=== PATIENT | female | born 1930 | race Caucasian/White ===

== ENCOUNTER 2018-09-27 10:05 | Inpatient (IN) | payer MEDICARE, MEDICAID ==
[2018-09-27] MEDS ORDERED: Sodium Chloride 0.9% 1,000 ML IV ONE (10:22)
--- NOTE | 2018-09-27 10:52 | ED Physician Chart ---
ED Chief Complaint/HPI - Patient Information Date Seen:: 09/27/18 Time Seen:: 10:46 Chief Complaint:: low blood pressure History of Present Illness:: this is an 87 yo female sent [facility] the [facility] for evaluation and treatment for her low blood pressure with dementia. Allergies:: Allergies Allergy/AdvReac Type Severity Reaction Status Date / Time No Known Allergies Allergy Verified 09/27/18 10:21 Vitals:: Vital Signs - 8 hr 09/27/18 10:23 Temp 97.4 F HR 93 RR 18 BP 104/65 O2 Sat % 98 Historian:: Medical Records Review:: Nurse's Note Reviewed, Old Chart Reviewed, Patient unable to respond ED Review of Systems - Review of Systems General/Constitutional: No fever, No chills, No weight loss, No weakness, No diaphoresis, No edema, No loss of appetite, Other (this patient is unable to give a review of systems) Skin: No skin lesions, No rash, No bruising Head: No headache, No light-headedness Eyes: No loss of vision, No pain, No diplopia ENT: No earache, No nasal drainage, No sore throat, No tinnitus Neck: No neck pain, No swelling, No thyromegaly, No stiffness, No mass noted Cardio Vascular: No chest pain, No palpitations, No PND, No orthopnea, No edema Pulmonary: No SOB, No cough, No sputum, No wheezing GI: No nausea, No vomiting, No diarrhea, No pain, No melena, No hematochezia, No constipation, No hematemesis G/U: No dysuria, No frequency, No hematuria Musculoskeletal: No bone or joint pain, No back pain, No muscle pain Endocrine: No polyuria, No polydipsia Psychiatric: No prior psych history, No depression, No anxiety, No suicidal ideation Hematopoietic: No bruising, No lymphadenopathy Allergic/Immuno: No urticaria, No angioedema Neurological: No syncope, No focal symptoms, No weakness, No paresthesia, No headache, No seizure, No dizziness, No confusion, No vertigo ED Past Medical History - Past Medical History Obtainable: Yes Past Medical History: HTN, Dementia Family History: None Social History: Non Smoker, No Alcohol, No Drug Use, Care Facility Surgical History: None Psychiatricy History: Dementia Medication: Reviewed Family Medical History - Family Member Mother History Unknown: Yes Living Status: ED Physical Exam - Physical Examination General/Constitutional: Awake, Well-developed, well-nourished, Alert, No distress, GCS 15, Non-toxic appearing, Ambulatory Head: Atraumatic Eyes: Lids, conjuctiva normal, PERRL, EOMI Skin: Nl inspection, No rash, No skin lesions, No ecchymosis, Well hydrated, No lymphadenopathy ENMT: External ears, nose nl, Nasal exam nl, Lips, teeth, gums nl Neck: Nontender, Full ROM w/o pain, No JVD, No nuchal rigidity, No bruit, No mass, No stridor Respiratory: Nl effort/Exclusion, Clear to Auscultation, No Wheeze/Rhonchi/Rales Cardio Vascular: RRR, No murmur, gallop, rubs, NL S1 S2 GI: No tenderness/rebounding/guarding, No organomegaly, No hernia, Normal BS's, Nondistended, No mass/bruits, No McBurney tenderness : No CVA tenderness Extremities: No tenderness or effusion, Full ROM, normal strength in all extremities, No edema, Normal digits & nails Neuro/Psych: Alert/oriented, DTR's symmetric, Normal sensory exam, Normal motor strength, Judgement/insight normal (this patient is unable to think), Mood normal, Normal gait, No focal deficits Misc: Normal back, No paraspinal tenderness ED Labs/Radiology/EKG Results - Lab Results Results: Abnormal Lab Results 09/27/18 09/27/18 09/27/18 10:50 10:50 10:50 Sodium Potassium Chloride Carbon Dioxide Anion Gap BUN Creatinine Est GFR ( Amer) Est GFR (Non-Af Amer) BUN/Creatinine Ratio Glucose Calcium Total Bilirubin AST ALT Alkaline Phosphatase Troponin I 0.07 H* B-Natriuretic Peptide Total Protein Albumin Globulin Albumin/Globulin Ratio Triglycerides 147 Cholesterol 223 H LDL Cholesterol Direct 113 HDL Cholesterol 80 TSH 0.69 09/27/18 09/27/18 10:50 10:50 Sodium 162 H* Potassium 4.5 Chloride 122 H Carbon Dioxide 28.0 Anion Gap 16.5 H BUN 53 H Creatinine 1.3 H Est GFR ( Amer) TNP Est GFR (Non-Af Amer) TNP BUN/Creatinine Ratio 40.8 Glucose 125 H Calcium 14.1 H* Total Bilirubin 0.3 AST 20 ALT 21 Alkaline Phosphatase 89 Troponin I B-Natriuretic Peptide 14.5 Total Protein 7.7 Albumin 3.9 Globulin 3.8 Albumin/Globulin Ratio 1.0 Triglycerides Cholesterol LDL Cholesterol Direct HDL Cholesterol TSH - Radiology Results Results: chest x-ray = nad - EKG Interpretations EKG Time:: 10:53 Rate & Rhythm: rate = sinus [place]: left axis ED Assessment - Assessment General Assessment: esrd elevated troponin ED Septic Shock - . Is Septic Shock (SBP<90, OR Lactate>4 mmol\L) present?: No - <6hrs of presentation: Vital Signs: Vital Signs - 8 hr 09/27/18 10:23 Temp 97.4 F HR 93 RR 18 BP 104/65 O2 Sat % 98 ED Reassessment (Disposition) - Reassessment Reassessment Condition:: Improved - Diagnosis Diagnosis:: esrd elevated troponin dementia - Patient Disposition Discharge/Transfer:: Acute Care w/in this hosp Admitting Medical Physician:: Julianna Farrar Condition at Disposition:: Improved
[2018-09-27 11:04] LABS: EOSINOPHILE ABSOLUTE 0.1 Th/cmm (0.1-0.4); HEMATOCRIT 46.9 % (41.0-60); HEMOGLOBIN 15.4 gm/dL (12-16); MEAN CELL VOLUME 89.8 fl (81-100); MEAN CORPUSCULAR HEMOGLOBIN 29.4 pg (27.0-31.0); MEAN CORPUSCULAR HGB CONC 32.8 pg (28.0-36.0); MONOCYTE ABSOLUTE 1.1 Th/cmm (0.3-1.0); NEUTROPHILE ABSOLUTE 20.9 Th/cmm (1.8-8.0); PLATELET COUNT 227 Th/cmm (150-400); RED BLOOD COUNT 5.22 Mil/cmm (3.80-5.20); RED CELL DISTRIBUTION WIDTH 14.1 % (11.5-20.0)
[2018-09-27 11:12] LABS: INR 0.94 (0.5-1.4)
[2018-09-27 11:19] LABS: CHOLESTEROL 223 mg/dL (<200); HDL -HIGH DENSITY LIPOPROTEIN 80 mg/dL (23-92); TRIGLYCERIDES 147 mg/dL (<150)
[2018-09-27 11:53] LABS: ALBUMIN 3.9 gm/dL (3.7-5.3); ALKALINE PHOSPHATASE 89 U/L (34-104); ANION GAP 16.5 (7.0-16.0); BILIRUBIN,TOTAL 0.3 mg/dL (0.3-1.0); BUN - UREA NITROGEN 53 mg/dL (7-25); CHLORIDE 122 mEq/L (98-107); CREATININE - SERUM 1.3 mg/dL (0.6-1.2); GLUCOSE 125 mg/dL (70-105); POTASSIUM SERUM 4.5 mEq/L (3.5-5.1); SGOT 20 U/L (13-39); SGPT/ALT 21 U/L (7-52); TOTAL PROTEIN,SERUM 7.7 gm/dL (6.0-8.3)
[2018-09-27 12:03] LABS: URINE SOURCE CLEAN C
[2018-09-27 12:10] LABS: URINE BILIRUBIN NEGATIVE (NEGATIVE); URINE BLOOD TRACE (NEGATIVE); URINE GLUCOSE (UA) NEGATIVE (NEGATIVE); URINE KETONE NEGATIVE (NEGATIVE); URINE LEUKOCYTE ESTERASE NEGATIVE (NEGATIVE); URINE MICROSCOPIC INDICATED? YES; URINE NITRATE NEGATIVE (NEGATIVE); URINE PH 7.5 (4.6 - 8.0); URINE PROTEIN NEGATIVE (NEGATIVE); URINE UROBILINOGEN 0.2 E.U./dL (0.2 - 1.0)
[2018-09-27 12:37] LABS: CALCIUM SERUM 14.1 mg/dL (8.6-10.3); SODIUM SERUM 162 mEq/L (136-145)
[2018-09-27] MEDS ORDERED: Dextrose 5% 1,000 ML IV ONE (12:42)
[2018-09-27 12:59] LABS: URINE CLARITY HAZY (CLEAR); URINE COLOR YELLOW
[2018-09-27 13:03] LABS: WHITE BLOOD COUNT 24.1 Th/cmm (4.8-10.8)
[2018-09-27 13:06] LABS: URINE EPITHELIAL CELLS NONE SEEN /lpf (FEW); URINE WBC 0-2 /hpf (0-5)
[2018-09-27 13:07] LABS: URINE AMORPHOUS SEDIMENT MODERATE PHOSPHATES (NONE SEEN); URINE BACTERIA FEW /hpf (NONE SEEN)
[2018-09-27 14:15] LABS: BAND NEUTROPHILE 0 % (0-10); BASOPHIL 0 % (0-3); EOSINOPHIL 0 % (0-5); LYMPHOCYTE 10 % (20-50); MONOCYTE 5 % (2-10); NEUTROPHILS 84 % (40-80); PLATELET ESTIMATE ADEQUATE (NORMAL)
[2018-09-27] MEDS ORDERED: Magnesium Hydroxide (MOM) 30 mL UDC PO PRN (15:37)
[2018-09-27] MEDS ORDERED: Fleet Enema 135 mL RC PRN (15:37)
[2018-09-27] MEDS: D5-0.45NS 1,000 ML IV SCH (17:46)
[2018-09-27] MEDS ORDERED: Piperacillin Sodium/Tazobact 2.25 gm Vial IV ONE (20:54)
[2018-09-27] MEDS ORDERED: Non-Formulary Item 1 EA (Melatonin [Melatonin] 3 MG) PO SCH (21:00)
[2018-09-27] MEDS ORDERED: Atorvastatin Calcium 10 MG TAB PO SCH (21:00)
[2018-09-28] MEDS ORDERED: Piperacillin Sodium/Tazobact 2.25 gm Vial IV ONE (03:59)
--- NOTE | 2018-09-28 04:33 | Consultation ---
DATE OF CONSULTATION: 09/27/2018 HISTORY OF PRESENT ILLNESS: This 87-year-old female was seen and examined at the courtesy of Dr. Farrar. The patient was transferred here from a snf with a low blood pressure and dementia. She was evaluated here and then admitted. She was found to have blood pressure on the low side, leukocytosis. WBC count was 24,000. She was also found to have slightly elevated troponin level. All the 3 troponins were slightly elevated. She does have history of actually hypertension, hypothyroidism, hyperlipidemia, chronic kidney disease, dementia. She was also found to have hypernatremia and hypercalcemia. LABORATORY DATA: Looking at the labs; sodium was 162, potassium 4.5, chloride 122, carbon dioxide 28, BUN 53, creatinine 1.3, glucose was 125, lactic acid was 1.11. Calcium 14.1, elevated. Total bilirubin 0.3, AST 20, ALT 21, alkaline phosphatase 89. Troponin was 0.07 and then troponin was 0.09 and then it came down again to 0.07, total protein 7.7, albumin 3.9, globulin 3.8, albumin-globulin ratio 1.0. Triglycerides 147, cholesterol 223. LDL cholesterol 113, HDL cholesterol 80. TSH was 0.69. Urinalysis was unremarkable, did not show any significant rbc's or wbc's, bacteria were a few. INR was 0.94, PTT 18.1. EKG showed sinus rhythm, left axis, possible old inferior myocardial infarction. MEDICATIONS: On reviewing the medications here, she is on cholecalciferol. She is on Sensipar, folic acid, Lasix, Namenda. She is on IV fluids at 75 mL an hour. She is also on Zosyn. She is on Rocephin. She is on vancomycin, multivitamin, potassium chloride, Lipitor, Aricept, Dulcolax tablets. PAST MEDICAL HISTORY: Usual childhood diseases. No history of rheumatic fever. No history of scarlet fever. Other past history as mentioned above. FAMILY HISTORY: Not available to me. SOCIAL HISTORY: Apparently, there was no history of smoking or drinking. No history of drug abuse. REVIEW OF SYSTEMS: Not much reliable available, but apparently there was no chest pains or shortness of breath. No history of PND, no history of orthopnea, no history of cough, no history of fever, no history of hemoptysis, no history of abdominal pain. No history of nausea or vomiting. No history of hematemesis. No history of melena, no history of bleeding per rectum. No history of change in bowel habits. No history of swelling over the legs. No history of intermittent claudications or phlebitis. PHYSICAL EXAMINATION: VITAL SIGNS: Heart rate is 78, blood pressure 106/59, respiration 18, temperature 97.1, O2 saturation 95%. SKIN: Normal. HEAD: Normocephalic. EYES: Conjunctivae were pink. There is no icterus in the eyes. Pupils reacting to light. NECK: There were no increased jugular venous distention, no thyromegaly, no lymphadenopathy. Carotids equal both sides. CHEST: Bilaterally symmetrical. Moves well with respiration. Respiratory movements equal both sides. Trachea is central. There is note to percussion. Breath sounds, basilar, few scattered rales. CARDIOVASCULAR SYSTEM: PMI not well localized. There is no pulsation or thrill. No parasternal heave. S1 normal, S2 physiologic. There were no S3, no rub. ABDOMEN: Soft, no tenderness, no rigidity, no guarding, no organomegaly. Bowel sounds normal. EXTREMITIES: There is no edema, no calf tenderness. Peripheral pulses diminished. IMPRESSION: Elevated troponin level, very mild elevation, which may be due to chronic kidney failure or the possibility of myocardial wall injury. History of hypertension, hyperlipidemia, hypothyroidism, chronic kidney disease, hypernatremia, hypercalcemia, leukocytosis, dementia. PLAN: Since LDL is still high, we will increase the Lipitor to at least 20 mg daily. We will get echocardiogram to evaluate left ventricular function and wall motion and ejection fraction. We will get a chest x-ray, repeat EKG. May be if the blood pressure stabilizes and if hemodynamically possible, beta stan should be added like Coreg, a small dose, maybe 3.125 mg b.i.d.; aspirin should be added 81 mg. DVT prophylaxis should be applied. JOB# [id number]
--- NOTE | 2018-09-28 05:52 | Consultation ---
DATE OF CONSULTATION: 09/27/2018 INFECTIOUS DISEASE CONSULTATION REFERRING PHYSICIAN: Dr. Farrar. REASON FOR CONSULTATION: Severe sepsis. HISTORY OF PRESENT ILLNESS: The patient is an 87-year-old female with a past medical history of dementia, hypertension, [facility] from [facility] blood pressure. On initial evaluation, the patient's temperature was 97.4 degrees Fahrenheit and WBC count was 24,100 with neutrophil 84%. Her blood pressure was 104/65. ID consult was called and I started the patient on Zosyn and one dose of vancomycin. Chest x-ray report is not available. PAST MEDICAL HISTORY: Includes hypertension and dementia. SOCIAL HISTORY: The patient lives in a nursing facility. No history of smoking, alcohol or drug use. PSYCHIATRIC HISTORY: Dementia. MEDICATIONS: Per medication reconciliation sheet. Antibiotic-andrade, she was started on Zosyn and give one dose of vancomycin 1 gram. ALLERGIES: NKDA. FAMILY HISTORY: Noncontributory, . REVIEW OF SYSTEMS: GENERAL: The patient has no fever, no chills. HEENT: No diplopia, no photophobia, no sore throat. RESPIRATORY: No cough, no shortness of breath. CARDIOVASCULAR: No chest pain or palpitation. GASTROINTESTINAL: No nausea, no vomiting, no diarrhea or constipation. GENITOURINARY: No dysuria. NEUROLOGICAL: No headache, no dizziness, no focal weakness. PHYSICAL EXAMINATION: GENERAL: The patient is cachectic, not in acute distress. VITAL SIGNS: Temperature 97.8, pulse 87, respiration is 18, blood pressure 112/57. HEENT: Head is normocephalic, atraumatic. Oral cavity moist, pink tongue. EYES: No pallor, no icterus. Pupils PERRLA, EOMI. NECK: Supple, no JVD, no carotid bruit. Trachea in midline. CHEST: Bilateral breath sounds. No crackles or wheezing. HEART: S1, S2 within normal limits. Regular rhythm. No murmur, no gallop. ABDOMEN: Soft, nontender, nondistended. Bowel sounds present. EXTREMITIES: No cyanosis, no clubbing, no edema. NEUROLOGIC: Alert, awake, oriented x 3, slow to respond. LABORATORY DATA: Current lab shows WBC count was 24,100, hemoglobin 15.4, hematocrit of 46.8, platelets are 227,000, neutrophil 84%, lymphocytes 10%. INR is 0.94. Sodium is 162, potassium 4.5, chloride 122, bicarbonate is 28, BUN is ____. IMPRESSION: 1. Leukocytosis, most likely sepsis. 2. Hyponatremia. 3. Azotemia secondary to dehydration. RECOMMENDATIONS: Continue Zosyn and go from there. JOB# [id number]
[2018-09-28 05:57] LABS: HEMATOCRIT 36.8 % (41.0-60); HEMOGLOBIN 12.1 gm/dL (12-16); MEAN CELL VOLUME 89.9 fl (81-100); MEAN CORPUSCULAR HEMOGLOBIN 29.5 pg (27.0-31.0); MEAN CORPUSCULAR HGB CONC 32.8 pg (28.0-36.0); PLATELET COUNT 185 Th/cmm (150-400); RED BLOOD COUNT 4.09 Mil/cmm (3.80-5.20); RED CELL DISTRIBUTION WIDTH 13.8 % (11.5-20.0)
[2018-09-28 06:09] LABS: ANION GAP 8.9 (7.0-16.0); BUN - UREA NITROGEN 31 mg/dL (7-25); CALCIUM SERUM 11.5 mg/dL (8.6-10.3); CARBON DIOXIDE 27.3 mEq/L (21.0-31.0); CHLORIDE 127 mEq/L (98-107); CHOLESTEROL 165 mg/dL (<200); GLUCOSE 126 mg/dL (70-105); HDL -HIGH DENSITY LIPOPROTEIN 54 mg/dL (23-92); POTASSIUM SERUM 3.2 mEq/L (3.5-5.1); TRIGLYCERIDES 162 mg/dL (<150)
[2018-09-28 06:24] LABS: SODIUM SERUM 160 mEq/L (136-145)
[2018-09-28 07:15] LABS: BAND NEUTROPHILE 0 % (0-10); BASOPHIL 0 % (0-3); EOSINOPHIL 0 % (0-5); LYMPHOCYTE 6 % (20-50); MONOCYTE 5 % (2-10); NEUTROPHILS 89 % (40-80); PLATELET ESTIMATE ADEQUATE (NORMAL)
[2018-09-28] MEDS ORDERED: MULTIVITAMIN PO SCH (09:00)
[2018-09-28] MEDS ORDERED: Non-Formulary Item 1 EA (Potassium Chloride [Potassium Chloride] 1 TAB) PO SCH (09:00)
[2018-09-28] MEDS ORDERED: Non-Formulary Item 1 EA (Cholecalciferol (Vitamin D3) [Vitamin D3] 1 TAB) PO SCH (09:00)
[2018-09-28] MEDS ORDERED: CINACALCET HCL PO SCH (09:00)
[2018-09-28] MEDS ORDERED: cefTRIAXone 1 GM in Sodium Chloride 0.9% 50 ML IV SCH (09:00)
[2018-09-28] MEDS ORDERED: Atorvastatin Calcium 10 MG TAB PO SCH (09:00)
[2018-09-28] MEDS: Aspirin 81mg Chewable Tab PO SCH (09:21)
[2018-09-28] MEDS: Multivitamin Tab PO SCH (09:21)
[2018-09-28] MEDS: Potassium Chloride 20 mEq ER Tab PO SCH (09:21)
--- NOTE | 2018-09-28 09:31 | Diagnostic Imaging Report ---
Portable chest x-ray HISTORY: Pain The heart size is normal. No acute focal pulmonary processes. Fractures involve the lateral aspect of the right fifth and sixth ribs. Suggestion of callus formation consistent with a degree of healing. No hilar or mediastinal abnormalities. IMPRESSION: 1. No acute pulmonary processes 2. Right rib fractures with changes suggesting of a degree of healing. If needed, dedicated rib radiographs would provide for further assessment.
--- NOTE | 2018-09-28 10:21 | History and Physical ---
History of Present Illness - HPI Chief Complaint: Hypotension and dementia HPI: 87F transferred from [facility] for hypotension and dementia. Pt was evaluated and admitted and found to have hypotension, leukocytosis, hypernatremia and elevated troponin. 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 Renal/: Report: Chronic Renal Insuff Family Medical History - Family Member Mother History Unknown: Yes Living Status: Social History Smoke: No (unknown) Alcohol: Other (unknown) Drugs: Other (unknown) Lives: Custodial - Medications Home Medications: Home Medication Medication Instructions Recorded Type Atorvastatin Calcium [Lipitor] 1 tab PO HS 09/27/18 History Bisacodyl 10 mg RC DAILY PRN 09/27/18 History Cholecalciferol (Vitamin D3) 1 tab PO DAILY 09/27/18 History [Vitamin D3] Cinacalcet HCl [Sensipar] 1 tab PO DAILY 09/27/18 History Donepezil HCl 1 tab PO HS 09/27/18 History Fleet Enema 1 appl RC DAILY PRN 09/27/18 History Folic Acid [Folate*] 1 mg PO DAILY 09/27/18 History Furosemide [Lasix] 20 mg PO DAILY 09/27/18 History Magnesium Hydroxide [Milk of 30 ml PO Q72HR PRN 09/27/18 History Magnesia] Melatonin 3 mg PO HS 09/27/18 History Memantine [Namenda] 1 tab PO DAILY 09/27/18 History Multivitamin [Daily Multiple 1 tab PO DAILY 09/27/18 History Vitamin] Potassium Chloride 1 tab PO DAILY 09/27/18 History - Allergies Allergies/Adverse Reactions: Allergies Allergy/AdvReac Type Severity Reaction Status Date / Time No Known Allergies Allergy Verified 09/27/18 10:21 Review of Systems - Review of Systems Constitutional: Report: No Significant Eyes: Report: No Significant Respiratory: Report: No Significant Cardiovascular: Report: No Significant Neurological: Report: Other (dementia) Other: no reliable source (including patient) available. Physical Exam - Physical Exam Neck: Report: Within normal limits Cardiovascular Systems: Report: +s1/s2 noted, Regular, Rate and Rhythm, No JVD Present Respiratory: Report: Breath Sounds are within normal limits Abdomen: Report: Non-tender to palpation Extremities: Report: Non-tender to palpation., No pedal edema was noted on inspection Skin: Report: Color of skin is within normal limits, Warm Neuro/Psych: Report: Other (alert, oriented to self only, demented) - Lab Results All Lab Results last 24 hours: Laboratory Results - last 24 hr 09/27/18 09/27/18 09/27/18 10:50 10:50 10:50 WBC RBC Hgb Hct MCV MCH MCHC Differential RDW Plt Count MPV Add Manual Diff Band Neutrophils % Neutrophils (Manual) Lymphocytes Monocytes Eosinophils Basophils Platelet Estimate PT 9.8 INR 0.94 PTT (Actin FS) 18.1 L Sodium Potassium Chloride Carbon Dioxide Anion Gap BUN Creatinine Est GFR ( Amer) Est GFR (Non-Af Amer) BUN/Creatinine Ratio Glucose Whole Bld Lactic Acid Calcium Total Bilirubin AST ALT Alkaline Phosphatase Troponin I 0.07 H* B-Natriuretic Peptide Total Protein Albumin Globulin Albumin/Globulin Ratio Triglycerides Cholesterol LDL Cholesterol Direct HDL Cholesterol TSH 0.69 Urine Source Urine Color Urine Clarity Urine pH Ur Specific [place] Urine Protein Urine Glucose (UA) Urine Ketones Urine Blood Urine Nitrate Urine Bilirubin Urine Urobilinogen Ur Leukocyte Esterase Urine RBC Urine WBC Ur Epithelial Cells Amorphous Sediment Urine Bacteria 09/27/18 09/27/18 09/27/18 10:50 10:50 10:50 WBC 24.1 H* RBC 5.22 H Hgb 15.4 Hct 46.9 MCV 89.8 MCH 29.4 MCHC Differential 32.8 RDW 14.1 Plt Count 227 MPV 9.1 Add Manual Diff YES Band Neutrophils % 0 Neutrophils (Manual) 84 H Lymphocytes 10 L Monocytes 5 Eosinophils 0 Basophils 0 Platelet Estimate ADEQUATE PT INR PTT (Actin FS) Sodium 162 H* Potassium 4.5 Chloride 122 H Carbon Dioxide 28.0 Anion Gap 16.5 H BUN 53 H Creatinine 1.3 H Est GFR ( Amer) TNP Est GFR (Non-Af Amer) TNP BUN/Creatinine Ratio 40.8 Glucose 125 H Whole Bld Lactic Acid Calcium 14.1 H* Total Bilirubin 0.3 AST 20 ALT 21 Alkaline Phosphatase 89 Troponin I B-Natriuretic Peptide Total Protein 7.7 Albumin 3.9 Globulin 3.8 Albumin/Globulin Ratio 1.0 Triglycerides 147 Cholesterol 223 H LDL Cholesterol Direct 113 HDL Cholesterol 80 TSH Urine Source Urine Color Urine Clarity Urine pH Ur Specific [place] Urine Protein Urine Glucose (UA) Urine Ketones Urine Blood Urine Nitrate Urine Bilirubin Urine Urobilinogen Ur Leukocyte Esterase Urine RBC Urine WBC Ur Epithelial Cells Amorphous Sediment Urine Bacteria 09/27/18 09/27/18 09/27/18 10:50 12:00 13:16 WBC RBC Hgb Hct MCV MCH MCHC Differential RDW Plt Count MPV Add Manual Diff Band Neutrophils % Neutrophils (Manual) Lymphocytes Monocytes Eosinophils Basophils Platelet Estimate PT INR PTT (Actin FS) Sodium Potassium Chloride Carbon Dioxide Anion Gap BUN Creatinine Est GFR ( Amer) Est GFR (Non-Af Amer) BUN/Creatinine Ratio Glucose Whole Bld Lactic Acid 1.11 Calcium Total Bilirubin AST ALT Alkaline Phosphatase Troponin I B-Natriuretic Peptide 14.5 Total Protein Albumin Globulin Albumin/Globulin Ratio Triglycerides Cholesterol LDL Cholesterol Direct HDL Cholesterol TSH Urine Source CLEAN C Urine Color YELLOW Urine Clarity HAZY Urine pH 7.5 Ur Specific [place] 1.015 Urine Protein NEGATIVE Urine Glucose (UA) NEGATIVE Urine Ketones NEGATIVE Urine Blood TRACE Urine Nitrate NEGATIVE Urine Bilirubin NEGATIVE Urine Urobilinogen 0.2 Ur Leukocyte Esterase NEGATIVE Urine RBC 2-5 Urine WBC 0-2 Ur Epithelial Cells NONE SEEN Amorphous Sediment MODERATE PHOSPHATES Urine Bacteria FEW 09/27/18 09/28/18 09/28/18 16:35 00:45 05:40 WBC 14.0 H D RBC 4.09 Hgb 12.1 D Hct 36.8 L D MCV 89.9 MCH 29.5 MCHC Differential 32.8 RDW 13.8 Plt Count 185 MPV 8.7 Add Manual Diff YES Band Neutrophils % 0 Neutrophils (Manual) 89 H Lymphocytes 6 L Monocytes 5 Eosinophils 0 Basophils 0 Platelet Estimate ADEQUATE PT INR PTT (Actin FS) Sodium Potassium Chloride Carbon Dioxide Anion Gap BUN Creatinine Est GFR ( Amer) Est GFR (Non-Af Amer) BUN/Creatinine Ratio Glucose Whole Bld Lactic Acid Calcium Total Bilirubin AST ALT Alkaline Phosphatase Troponin I 0.09 H* D 0.07 H* D B-Natriuretic Peptide Total Protein Albumin Globulin Albumin/Globulin Ratio Triglycerides Cholesterol LDL Cholesterol Direct HDL Cholesterol TSH Urine Source Urine Color Urine Clarity Urine pH Ur Specific [place] Urine Protein Urine Glucose (UA) Urine Ketones Urine Blood Urine Nitrate Urine Bilirubin Urine Urobilinogen Ur Leukocyte Esterase Urine RBC Urine WBC Ur Epithelial Cells Amorphous Sediment Urine Bacteria 09/28/18 09/28/18 09/28/18 05:40 05:40 08:30 WBC RBC Hgb Hct MCV MCH MCHC Differential RDW Plt Count MPV Add Manual Diff Band Neutrophils % Neutrophils (Manual) Lymphocytes Monocytes Eosinophils Basophils Platelet Estimate PT INR PTT (Actin FS) Sodium 160 H* Potassium 3.2 L Chloride 127 H Carbon Dioxide 27.3 Anion Gap 8.9 BUN 31 H Creatinine 1.0 Est GFR ( Amer) TNP Est GFR (Non-Af Amer) TNP BUN/Creatinine Ratio 31.0 Glucose 126 H Whole Bld Lactic Acid Calcium 11.5 H Total Bilirubin AST ALT Alkaline Phosphatase Troponin I 0.06 H D B-Natriuretic Peptide Total Protein Albumin Globulin Albumin/Globulin Ratio Triglycerides 162 H Cholesterol 165 LDL Cholesterol Direct 79 HDL Cholesterol 54 TSH 0.66 Urine Source Urine Color Urine Clarity Urine pH Ur Specific [place] Urine Protein Urine Glucose (UA) Urine Ketones Urine Blood Urine Nitrate Urine Bilirubin Urine Urobilinogen Ur Leukocyte Esterase Urine RBC Urine WBC Ur Epithelial Cells Amorphous Sediment Urine Bacteria - Assessment Assessment: HTN Dementia Elevated troponin CRI Leukocytosis Hypernatremia - Plan Plan: Continue Plan of care Continue collaboration with consulting specialist (ID, Cards, Renal) and interdisciplinary team. Continue to monitor labs and vitals Strict I/Os Fall precaution DVT prophylaxis PT/OT Nutritional support.
[2018-09-28] MEDS: D5-0.45NS 1,000 ML IV SCH (13:42)
[2018-09-28 19:15] LABS: EOSINOPHIL SMEAR SOURCE URINE; EOSINOPHILS SMEAR COUNT NONE SEEN (NONE SEEN)
[2018-09-28] MEDS: Atorvastatin Calcium 10 MG TAB PO SCH (20:15)
--- NOTE | 2018-09-28 23:17 | Consultation ---
DATE OF CONSULTATION: 09/28/2018 ATTENDING PHYSICIAN: Neena Farrar MD PRODUCT TECHNOLOGY SCIENTIST: Maulik Lindsay MD REASON FOR CONSULTATION: Worsening kidney function, electrolyte imbalance, and fluid management. HISTORY OF PRESENT ILLNESS: This is an 87-year-old female with past medical history of Alzheimer's dementia who was brought in because of altered level of consciousness. Few hours prior to admission, the patient was noted by F staff to be very lethargic. This was associated with generalized weakness. They also observed that her appetite had been poor the last few weeks. She was hypotensive with a blood pressure of 100/62. She was brought to the Emergency Room. Her white count was 24.1. Chest x-ray revealed no acute disease and right rib fractures. Her temperature was 97.4. Her BUN/creatinine were 53/1.3 with a sodium of 162. There was no mention of any nausea and vomiting nor diarrhea. PAST MEDICAL HISTORY: 1. Dyslipidemia. 2. Essential hypertension. 3. Alzheimer dementia, without behavior disturbance. 4. Primary hyperparathyroidism. 5. Osteoporosis. CURRENT MEDICATIONS: She is currently on aspirin, atorvastatin, bisacodyl, ceftriaxone, cinacalcet, donepezil, folic acid, furosemide, magnesium hydroxide, melatonin, Namenda, potassium chloride, vancomycin, and Zosyn. ALLERGIES: No known drug allergies. SOCIAL AND FAMILY HISTORY: Unable to obtain because the patient remains nonverbal. REVIEW OF SYSTEMS: Also unable to decipher from the patient because of the same reason. PHYSICAL EXAMINATION: GENERAL: The patient is awake, nonverbal, not in any distress. VITAL SIGNS: Her blood pressure is 116/55, pulse 71, temperature is 97.9 degrees. SKIN: Poor turgor, warm, no rash, no jaundice appreciated. HEENT: Head normocephalic, atraumatic. Eyes: Extraocular muscles intact. Pupils equal, round, reactive to light and accommodates. Anicteric sclerae. Pale conjunctivae. Nose: Midline nasal septum. Mouth: Dry mucosa. Poor dentition. NECK: Supple, no adenopathy, no thyromegaly, no bruits. Trachea palpated in the midline. CHEST AND CARDIOVASCULAR: S1, S2. No rub, murmur nor gallop appreciated. Point of maximal impulse fifth intercostal space, left midclavicular line. No abdominal or femoral bruits appreciated. LUNGS: Equal expansion, no use of accessory muscles. No supraclavicular retractions. Decreased breath sounds, few rhonchi, but no rales nor wheezes appreciated. BREASTS: Symmetrical, without any discharge. ABDOMEN: Flat, soft. Positive for bowel sounds. No bruits either diastolic or systolic. RECTAL: Lax sphincter tone. GENITOURINARY: Normal appearing female genitalia. MUSCULOSKELETAL: No effusion present in her joints, but unable to assess her range of motion. EXTREMITIES: No evidence of edema, cyanosis or clubbing with palpable femoral, but unable to fully appreciate popliteal and dorsalis pedis pulses. NEUROLOGIC: The patient is awake; however, unable to follow my neuro commands, so I was not able to pursue further my neuro exam. LABORATORY DATA AND STUDIES: Sodium of 160, potassium 3.2, chloride 127, BUN 31, creatinine is 1, glucose is 126, calcium is 11.5. White count is 14, hemoglobin 12.1, hematocrit 36.8, platelets 185, polys 89%. IMPRESSION: 1. Acute kidney injury. The patient's mental status had declined. Her appetite has also deteriorated. She has not been eating or drinking the last few days. She was not able to replenish both sensible and insensible fluid losses. As a consequence, her blood pressure was low. Thus, she developed prerenal azotemia. Physical exam revealed poor skin turgor, dry oral mucosa and low blood pressure suggestive of some underlying dehydration along with an elevated sodium level as well as an elevated calcium level. Her prerenal azotemia eventually progressed to acute tubular injury. 2. Altered level of consciousness secondary to metabolic/toxic encephalopathy. 3. Metabolic/toxic encephalopathy, possibly secondary to sepsis. 4. Sepsis, at this point etiology is unknown. 5. Dehydration. 6. Alzheimer dementia without behavioral disturbance. 7. Hypernatremia secondary to dehydration. 8. Mildly elevated troponin, more likely from demand ischemia due to sepsis and dehydration. PLAN: 1. Continue on with IV hydration. 2. Discontinue furosemide. 3. Follow up cultures. 4. Follow up electrolytes, CBC, uric acid level. 5. Urine sodium, eosinophils, and creatinine. 6. Urine microalbumin to creatinine ratio. 7. Follow up PTH level. JOB# [id number]
[2018-09-29] MEDS: D5-0.45NS 1,000 ML IV SCH (03:59)
[2018-09-29 05:30] LABS: % BASOPHILS 0.2 % (0.0-2.0); % EOSINOPHILS 1.1 % (0.0-5.0); % LYMPHOCYTES 9.3 % (20.0-50.0); % MONOCYTES 4.2 % (2.0-10.0); % NEUTROPHILS 85.2 % (40.0-80.0); EOSINOPHILE ABSOLUTE 0.1 Th/cmm (0.1-0.4); HEMATOCRIT 35.6 % (41.0-60); HEMOGLOBIN 11.6 gm/dL (12-16); LYMPHOCYTE ABSOLUTE 1.2 Th/cmm (1.5-3.0); MEAN CELL VOLUME 89.8 fl (81-100); MEAN CORPUSCULAR HEMOGLOBIN 29.2 pg (27.0-31.0); MEAN CORPUSCULAR HGB CONC 32.6 pg (28.0-36.0); MONOCYTE ABSOLUTE 0.5 Th/cmm (0.3-1.0); NEUTROPHILE ABSOLUTE 11.2 Th/cmm (1.8-8.0); PLATELET COUNT 167 Th/cmm (150-400); RED BLOOD COUNT 3.96 Mil/cmm (3.80-5.20); RED CELL DISTRIBUTION WIDTH 13.7 % (11.5-20.0)
[2018-09-29 05:59] LABS: ALB/GLOB RATIO 1.1 (1.0-1.8); ALBUMIN 3.2 gm/dL (3.7-5.3); ALKALINE PHOSPHATASE 69 U/L (34-104); ANION GAP 11.3 (7.0-16.0); BILIRUBIN,TOTAL 0.4 mg/dL (0.3-1.0); BUN - UREA NITROGEN 22 mg/dL (7-25); CALCIUM SERUM 11.2 mg/dL (8.6-10.3); CARBON DIOXIDE 27.4 mEq/L (21.0-31.0); CHLORIDE 119 mEq/L (98-107); CREATININE - SERUM 1.1 mg/dL (0.6-1.2); GLUCOSE 120 mg/dL (70-105); MAGNESIUM 2.3 mg/dL (1.9-2.7); SGOT 16 U/L (13-39); SGPT/ALT 14 U/L (7-52); SODIUM SERUM 155 mEq/L (136-145); TOTAL PROTEIN,SERUM 6.2 gm/dL (6.0-8.3); URIC ACID 6.2 mg/dL (2.3-6.6)
[2018-09-29 06:29] LABS: POTASSIUM SERUM 2.7 mEq/L (3.5-5.1)
[2018-09-29] MEDS ORDERED: Potassium Chloride 20 mEq ER Tab PO ONE ×2 (07:01→08:00)
[2018-09-29] MEDS ORDERED: Potassium Chloride Elixir 20 mEq /15 mL UDC PO ONE (08:00)
[2018-09-29] MEDS: Potassium Chloride 20 mEq ER Tab PO SCH (08:52)
[2018-09-29] MEDS: Multivitamin Tab PO SCH (08:52)
[2018-09-29] MEDS: Aspirin 81mg Chewable Tab PO SCH (08:52)
--- NOTE | 2018-09-29 11:21 | Internal Medicine Prog Note ---
Internal Medicine Subjective - Subjective Service Date: 09/29/18 Patient seen and examined:: with staff Patient is:: awake, verbal Patient Complaints of:: other (pt. was admitted with Hypotension.) Per staff patient has:: no adverse event, no episodes of fall Internal Medicine Objective - Results Result Diagrams: 09/29/18 04:30 09/29/18 04:30 Recent Labs: Laboratory Last Values WBC 13.0 Th/cmm (4.8-10.8) H 09/29/18 04:30 RBC 3.96 Mil/cmm (3.80-5.20) 09/29/18 04:30 Hgb 11.6 gm/dL (12-16) L 09/29/18 04:30 Hct 35.6 % (41.0-60) L 09/29/18 04:30 MCV 89.8 fl (81-100) 09/29/18 04:30 MCH 29.2 pg (27.0-31.0) 09/29/18 04:30 MCHC Differential 32.6 pg (28.0-36.0) 09/29/18 04:30 RDW 13.7 % (11.5-20.0) 09/29/18 04:30 Plt Count 167 Th/cmm (150-400) 09/29/18 04:30 MPV 9.3 fl 09/29/18 04:30 Add Manual Diff YES 09/28/18 05:40 Neutrophils % 85.2 % (40.0-80.0) H 09/29/18 04:30 Band Neutrophils % 0 % (0-10) 09/28/18 05:40 Lymphocytes % 9.3 % (20.0-50.0) L 09/29/18 04:30 Monocytes % 4.2 % (2.0-10.0) 09/29/18 04:30 Eosinophils % 1.1 % (0.0-5.0) 09/29/18 04:30 Basophils % 0.2 % (0.0-2.0) 09/29/18 04:30 Neutrophils (Manual) 89 % (40-80) H 09/28/18 05:40 Lymphocytes 6 % (20-50) L 09/28/18 05:40 Monocytes 5 % (2-10) 09/28/18 05:40 Eosinophils 0 % (0-5) 09/28/18 05:40 Basophils 0 % (0-3) 09/28/18 05:40 Platelet Estimate ADEQUATE (NORMAL) 09/28/18 05:40 Eos Smear Source URINE 09/28/18 17:45 Eos Smear Total Cells NONE SEEN (NONE SEEN) 09/28/18 17:45 PT 9.8 SECONDS (9.5-11.5) 09/27/18 10:50 INR 0.94 (0.5-1.4) 09/27/18 10:50 PTT (Actin FS) 18.1 SECONDS (26.0-38.0) L 09/27/18 10:50 Sodium 155 mEq/L (136-145) H 09/29/18 04:30 Potassium 2.7 mEq/L (3.5-5.1) L* 09/29/18 04:30 Chloride 119 mEq/L (98-107) H 09/29/18 04:30 Carbon Dioxide 27.4 mEq/L (21.0-31.0) 09/29/18 04:30 Anion Gap 11.3 (7.0-16.0) 09/29/18 04:30 BUN 22 mg/dL (7-25) 09/29/18 04:30 Creatinine 1.1 mg/dL (0.6-1.2) 09/29/18 04:30 Est GFR ( Amer) TNP 09/29/18 04:30 Est GFR (Non-Af Amer) TNP 09/29/18 04:30 BUN/Creatinine Ratio 20.0 09/29/18 04:30 Glucose 120 mg/dL (70-105) H 09/29/18 04:30 Whole Bld Lactic Acid 1.33 mmol/L (0.60-1.99) 09/29/18 04:30 Uric Acid 6.2 mg/dL (2.3-6.6) 09/29/18 04:30 Calcium 11.2 mg/dL (8.6-10.3) H 09/29/18 04:30 Magnesium 2.3 mg/dL (1.9-2.7) 09/29/18 04:30 Total Bilirubin 0.4 mg/dL (0.3-1.0) 09/29/18 04:30 AST 16 U/L (13-39) 09/29/18 04:30 ALT 14 U/L (7-52) 09/29/18 04:30 Alkaline Phosphatase 69 U/L (34-104) 09/29/18 04:30 Troponin I 0.06 ng/mL (0.01-0.05) H D 09/28/18 08:30 B-Natriuretic Peptide 14.5 pg/mL (5.0-100.0) 09/27/18 10:50 Total Protein 6.2 gm/dL (6.0-8.3) 09/29/18 04:30 Albumin 3.2 gm/dL (3.7-5.3) L 09/29/18 04:30 Globulin 3.0 gm/dL 09/29/18 04:30 Albumin/Globulin Ratio 1.1 (1.0-1.8) 09/29/18 04:30 Triglycerides 162 mg/dL (<150) H 09/28/18 05:40 Cholesterol 165 mg/dL (<200) 09/28/18 05:40 LDL Cholesterol Direct 79 mg/dL (75-193) 09/28/18 05:40 HDL Cholesterol 54 mg/dL (23-92) 09/28/18 05:40 TSH 0.66 uIU/ml (0.34-5.60) 09/28/18 05:40 Urine Source CLEAN C 09/27/18 12:00 Urine Color YELLOW 09/27/18 12:00 Urine Clarity HAZY (CLEAR) 09/27/18 12:00 Urine pH 7.5 (4.6 - 8.0) 09/27/18 12:00 Ur Specific [place] 1.015 (1.005-1.030) 09/27/18 12:00 Urine Protein NEGATIVE mg/dL (NEGATIVE) 09/27/18 12:00 Urine Glucose (UA) NEGATIVE mg/dL (NEGATIVE) 09/27/18 12:00 Urine Ketones NEGATIVE mg/dL (NEGATIVE) 09/27/18 12:00 Urine Blood TRACE (NEGATIVE) 09/27/18 12:00 Urine Nitrate NEGATIVE (NEGATIVE) 09/27/18 12:00 Urine Bilirubin NEGATIVE (NEGATIVE) 09/27/18 12:00 Urine Urobilinogen 0.2 E.U./dL (0.2 - 1.0) 09/27/18 12:00 Ur Leukocyte Esterase NEGATIVE (NEGATIVE) 09/27/18 12:00 Urine RBC 2-5 /hpf (0-5) 09/27/18 12:00 Urine WBC 0-2 /hpf (0-5) 09/27/18 12:00 Ur Epithelial Cells NONE SEEN /lpf (FEW) 09/27/18 12:00 Amorphous Sediment MODERATE PHOSPHATES (NONE SEEN) 09/27/18 12:00 Urine Bacteria FEW /hpf (NONE SEEN) 09/27/18 12:00 Ur Random Sodium 80 mmol/L 09/28/18 17:45 Urine Creatinine 23.0 mg/dl (28.0-217.0) L 09/28/18 17:45 - Physical Exam Vitals and I&O: Vital Signs Temp 97.2 F 09/29/18 09:42 Pulse 68 09/29/18 09:42 Resp 18 09/29/18 09:42 BP 106/45 09/29/18 09:42 Pulse Ox 98 09/29/18 09:42 Intake & Output 09/28/18 09/29/18 09/29/18 18:59 06:59 18:59 Intake Total 397.5 1300 Balance 397.5 1300 Weight (lbs) 43.545 kg 43.545 kg Intake: Intake, IV Amount 132.5 1050 D5-0.45NS 1,000 ml @ 75 82.5 1000 mls/hr IV .[id number] [facility] Rx #:[id number] Piperacillin Sodium/ 50 50 Tazobact 2.25 gm In Sodium Chloride 0.9% 50 ml @ 100 mls/hr IV Q8HR [facility] Rx#:[id number] Oral 265 250 Other: # Voids 3 3 # Bowel Movements 2 Stool Characteristics Soft Soft Brown Brown Weight Source Bedscale Bedscale Active Medications: Current Medications Aspirin (Aspirin Chewable) 81 mg PO DAILY [facility] Stop: 11/27/18 08:59 Last Admin: 09/29/18 08:52 Dose: 81 mg Atorvastatin Calcium (Lipitor) 20 mg PO HS [facility]; Protocol Stop: 11/27/18 20:59 Last Admin: 09/28/18 20:15 Dose: 20 mg Bisacodyl (Dulcolax 10 Mg Supp) 10 mg RC DAILY PRN PRN Reason: Constipation Stop: 11/26/18 15:36 Cholecalciferol (Vitamin D3) 1,000 iu PO DAILY [facility] Stop: 11/27/18 08:59 Last Admin: 09/29/18 08:51 Dose: 1,000 iu Cinacalcet (Sensipar) 60 mg PO DAILY [facility] Stop: 11/27/18 08:59 Last Admin: 09/29/18 08:52 Dose: 60 mg Donepezil HCl (Aricept) 5 mg PO HS [facility] Stop: 11/26/18 20:59 Last Admin: 09/28/18 20:15 Dose: 5 mg Folic Acid (Folate) 1 mg PO DAILY [facility] Stop: 11/27/18 08:59 Last Admin: 09/29/18 08:52 Dose: 1 mg Dextrose/Sodium Chloride (D5-0.45ns) 1,000 mls @ 75 mls/hr IV .[id number] [facility] Stop: 11/26/18 15:21 Last Admin: 09/29/18 03:59 Dose: 75 mls/hr Piperacillin Sod/Tazobactam (Sod 2.25 gm/ Sodium Chloride) 50 mls @ 100 mls/hr IV Q8HR [facility] Stop: 11/26/18 20:59 Last Admin: 09/29/18 04:02 Dose: 100 mls/hr Magnesium Hydroxide (Milk Of Magnesia) 30 ml PO Q72HR PRN PRN Reason: Constipation Stop: 11/26/18 15:36 Memantine (Namenda) 5 mg PO DAILY [facility] Stop: 11/27/18 08:59 Last Admin: 09/29/18 08:52 Dose: 5 mg Multivitamins/Vitamin C (Theragran) 1 tab PO DAILY [facility] Stop: 11/27/18 08:59 Last Admin: 09/29/18 08:52 Dose: 1 tab Potassium Chloride (Klor-Con) 20 meq PO DAILY [facility] Stop: 11/27/18 08:59 Last Admin: 09/29/18 08:52 Dose: 20 meq Sodium Phosphate (Fleet Enema) 135 ml RC DAILY PRN PRN Reason: Constipation Stop: 11/26/18 15:36 Physical Exam: 87 y/o female patient was admitted with hypotension, leukocytosis, hyponatremia and elevated troponin. Patient has generalized weakness. General: weak HEENT: NC/AT Neck: Supple, No JVD Lungs: CTAB Cardiovascular: RRR, Normal S1 Abdomen: soft, non-tender Extremities: clear Neurological: no change Internal Medicine Assmt/Plan - Assessment Assessment: Hypotension. Dementia. Leukocytosis. Hypernatremia. Elevated Troponin. - Plan Plan: Continuation of care. Monitor Vitals and Labs. Continue present meds as directed. Monitor Diet/Nutritional support. Psych management as per Psych. Pain Management. Safety precaution. Supportive care. Fall precaution, frequent nursing rounds, and as needed restraints to prevent fall. Continue collaborating with consulting specialists, case management and nursing team. Will Monitor patient and continue current treatment plan as ordered. Nutritional Asmnt/Malnutr-PDOC - Dietary Evaluation Malnutrition Findings (Please click <Entered> for more info): see orders.
--- NOTE | 2018-09-29 11:30 | Diagnostic Imaging Report ---
Renal ultrasound HISTORY: Abnormal renal function tests The right kidney is normal in size (9.8 x 4.9 x 4.5 cm). No focal lesions. No hydronephrosis. The left kidney is normal in size (9.9 x 4.3 x 3.8 cm). No focal lesions. No hydronephrosis. No intraluminal abdomen seen within the urinary bladder. Patient was unable to void for assessment of postvoid urine residual. IMPRESSION: 1. Negative examination the kidneys 2. The patient was unable to void for assessment of postvoid urine residual.
--- NOTE | 2018-09-29 12:32 | Infectious Disease Prog Note ---
Infectious Disease Subjective - Review of Systems Service Date: 09/29/18 Subjective: THere is no new change, no fever. Infectious Disease Objective - Results Result Diagrams: 09/29/18 04:30 09/29/18 04:30 Recent Labs: Laboratory Last Values WBC 13.0 Th/cmm (4.8-10.8) H 09/29/18 04:30 RBC 3.96 Mil/cmm (3.80-5.20) 09/29/18 04:30 Hgb 11.6 gm/dL (12-16) L 09/29/18 04:30 Hct 35.6 % (41.0-60) L 09/29/18 04:30 MCV 89.8 fl (81-100) 09/29/18 04:30 MCH 29.2 pg (27.0-31.0) 09/29/18 04:30 MCHC Differential 32.6 pg (28.0-36.0) 09/29/18 04:30 RDW 13.7 % (11.5-20.0) 09/29/18 04:30 Plt Count 167 Th/cmm (150-400) 09/29/18 04:30 MPV 9.3 fl 09/29/18 04:30 Add Manual Diff YES 09/28/18 05:40 Neutrophils % 85.2 % (40.0-80.0) H 09/29/18 04:30 Band Neutrophils % 0 % (0-10) 09/28/18 05:40 Lymphocytes % 9.3 % (20.0-50.0) L 09/29/18 04:30 Monocytes % 4.2 % (2.0-10.0) 09/29/18 04:30 Eosinophils % 1.1 % (0.0-5.0) 09/29/18 04:30 Basophils % 0.2 % (0.0-2.0) 09/29/18 04:30 Neutrophils (Manual) 89 % (40-80) H 09/28/18 05:40 Lymphocytes 6 % (20-50) L 09/28/18 05:40 Monocytes 5 % (2-10) 09/28/18 05:40 Eosinophils 0 % (0-5) 09/28/18 05:40 Basophils 0 % (0-3) 09/28/18 05:40 Platelet Estimate ADEQUATE (NORMAL) 09/28/18 05:40 Eos Smear Source URINE 09/28/18 17:45 Eos Smear Total Cells NONE SEEN (NONE SEEN) 09/28/18 17:45 PT 9.8 SECONDS (9.5-11.5) 09/27/18 10:50 INR 0.94 (0.5-1.4) 09/27/18 10:50 PTT (Actin FS) 18.1 SECONDS (26.0-38.0) L 09/27/18 10:50 Sodium 155 mEq/L (136-145) H 09/29/18 04:30 Potassium 2.7 mEq/L (3.5-5.1) L* 09/29/18 04:30 Chloride 119 mEq/L (98-107) H 09/29/18 04:30 Carbon Dioxide 27.4 mEq/L (21.0-31.0) 09/29/18 04:30 Anion Gap 11.3 (7.0-16.0) 09/29/18 04:30 BUN 22 mg/dL (7-25) 09/29/18 04:30 Creatinine 1.1 mg/dL (0.6-1.2) 09/29/18 04:30 Est GFR ( Amer) TNP 09/29/18 04:30 Est GFR (Non-Af Amer) TNP 09/29/18 04:30 BUN/Creatinine Ratio 20.0 09/29/18 04:30 Glucose 120 mg/dL (70-105) H 09/29/18 04:30 Whole Bld Lactic Acid 1.33 mmol/L (0.60-1.99) 09/29/18 04:30 Uric Acid 6.2 mg/dL (2.3-6.6) 09/29/18 04:30 Calcium 11.2 mg/dL (8.6-10.3) H 09/29/18 04:30 Magnesium 2.3 mg/dL (1.9-2.7) 09/29/18 04:30 Total Bilirubin 0.4 mg/dL (0.3-1.0) 09/29/18 04:30 AST 16 U/L (13-39) 09/29/18 04:30 ALT 14 U/L (7-52) 09/29/18 04:30 Alkaline Phosphatase 69 U/L (34-104) 09/29/18 04:30 Troponin I 0.06 ng/mL (0.01-0.05) H D 09/28/18 08:30 B-Natriuretic Peptide 14.5 pg/mL (5.0-100.0) 09/27/18 10:50 Total Protein 6.2 gm/dL (6.0-8.3) 09/29/18 04:30 Albumin 3.2 gm/dL (3.7-5.3) L 09/29/18 04:30 Globulin 3.0 gm/dL 09/29/18 04:30 Albumin/Globulin Ratio 1.1 (1.0-1.8) 09/29/18 04:30 Triglycerides 162 mg/dL (<150) H 09/28/18 05:40 Cholesterol 165 mg/dL (<200) 09/28/18 05:40 LDL Cholesterol Direct 79 mg/dL (75-193) 09/28/18 05:40 HDL Cholesterol 54 mg/dL (23-92) 09/28/18 05:40 TSH 0.66 uIU/ml (0.34-5.60) 09/28/18 05:40 Urine Source CLEAN C 09/27/18 12:00 Urine Color YELLOW 09/27/18 12:00 Urine Clarity HAZY (CLEAR) 09/27/18 12:00 Urine pH 7.5 (4.6 - 8.0) 09/27/18 12:00 Ur Specific [place] 1.015 (1.005-1.030) 09/27/18 12:00 Urine Protein NEGATIVE mg/dL (NEGATIVE) 09/27/18 12:00 Urine Glucose (UA) NEGATIVE mg/dL (NEGATIVE) 09/27/18 12:00 Urine Ketones NEGATIVE mg/dL (NEGATIVE) 09/27/18 12:00 Urine Blood TRACE (NEGATIVE) 09/27/18 12:00 Urine Nitrate NEGATIVE (NEGATIVE) 09/27/18 12:00 Urine Bilirubin NEGATIVE (NEGATIVE) 09/27/18 12:00 Urine Urobilinogen 0.2 E.U./dL (0.2 - 1.0) 09/27/18 12:00 Ur Leukocyte Esterase NEGATIVE (NEGATIVE) 09/27/18 12:00 Urine RBC 2-5 /hpf (0-5) 09/27/18 12:00 Urine WBC 0-2 /hpf (0-5) 09/27/18 12:00 Ur Epithelial Cells NONE SEEN /lpf (FEW) 09/27/18 12:00 Amorphous Sediment MODERATE PHOSPHATES (NONE SEEN) 09/27/18 12:00 Urine Bacteria FEW /hpf (NONE SEEN) 09/27/18 12:00 Ur Random Sodium 80 mmol/L 09/28/18 17:45 Urine Creatinine 23.0 mg/dl (28.0-217.0) L 09/28/18 17:45 - Physical Exam Vitals and I&O: Vital Signs Temp 97.2 F 09/29/18 09:42 Pulse 68 09/29/18 09:42 Resp 18 09/29/18 09:42 BP 106/45 09/29/18 09:42 Pulse Ox 98 09/29/18 09:42 Intake & Output 09/28/18 09/29/18 09/29/18 18:59 06:59 18:59 Intake Total 397.5 1300 Balance 397.5 1300 Weight (lbs) 43.545 kg 43.545 kg Intake: Intake, IV Amount 132.5 1050 D5-0.45NS 1,000 ml @ 75 82.5 1000 mls/hr IV .[id number] [facility] Rx #:[id number] Piperacillin Sodium/ 50 50 Tazobact 2.25 gm In Sodium Chloride 0.9% 50 ml @ 100 mls/hr IV Q8HR [facility] Rx#:[id number] Oral 265 250 Other: # Voids 3 3 # Bowel Movements 2 Stool Characteristics Soft Soft Brown Brown Weight Source Bedscale Bedscale Active Medications: Current Medications Aspirin (Aspirin Chewable) 81 mg PO DAILY [facility] Stop: 11/27/18 08:59 Last Admin: 09/29/18 08:52 Dose: 81 mg Atorvastatin Calcium (Lipitor) 20 mg PO HS [facility]; Protocol Stop: 11/27/18 20:59 Last Admin: 09/28/18 20:15 Dose: 20 mg Bisacodyl (Dulcolax 10 Mg Supp) 10 mg RC DAILY PRN PRN Reason: Constipation Stop: 11/26/18 15:36 Cholecalciferol (Vitamin D3) 1,000 iu PO DAILY [facility] Stop: 11/27/18 08:59 Last Admin: 09/29/18 08:51 Dose: 1,000 iu Cinacalcet (Sensipar) 60 mg PO DAILY [facility] Stop: 11/27/18 08:59 Last Admin: 09/29/18 08:52 Dose: 60 mg Donepezil HCl (Aricept) 5 mg PO HS [facility] Stop: 11/26/18 20:59 Last Admin: 09/28/18 20:15 Dose: 5 mg Folic Acid (Folate) 1 mg PO DAILY [facility] Stop: 11/27/18 08:59 Last Admin: 09/29/18 08:52 Dose: 1 mg Dextrose/Sodium Chloride (D5-0.45ns) 1,000 mls @ 75 mls/hr IV .[id number] [facility] Stop: 11/26/18 15:21 Last Admin: 09/29/18 03:59 Dose: 75 mls/hr Piperacillin Sod/Tazobactam (Sod 2.25 gm/ Sodium Chloride) 50 mls @ 100 mls/hr IV Q8HR [facility] Stop: 11/26/18 20:59 Last Admin: 09/29/18 04:02 Dose: 100 mls/hr Magnesium Hydroxide (Milk Of Magnesia) 30 ml PO Q72HR PRN PRN Reason: Constipation Stop: 11/26/18 15:36 Memantine (Namenda) 5 mg PO DAILY [facility] Stop: 11/27/18 08:59 Last Admin: 09/29/18 08:52 Dose: 5 mg Multivitamins/Vitamin C (Theragran) 1 tab PO DAILY [facility] Stop: 11/27/18 08:59 Last Admin: 09/29/18 08:52 Dose: 1 tab Potassium Chloride (Klor-Con) 20 meq PO DAILY [facility] Stop: 11/27/18 08:59 Last Admin: 09/29/18 08:52 Dose: 20 meq Sodium Phosphate (Fleet Enema) 135 ml RC DAILY PRN PRN Reason: Constipation Stop: 11/26/18 15:36 General: no acute distress, well developed, well nourished HEENT: atraumatic, normocephalic, PERRLA, EOMI Neck: supple, no thyromegaly, no lymphadenopathy Cardiovascular: S1S2, regular Lungs: clear to auscultation bilaterally, clear to percussion Abdomen: soft Infectious Disease Assmt/Plan - Assessment Assessment: 1. Leukocytosis, most likely sepsis. 2. Hyponatremia. 3. Azotemia secondary to dehydration. 4. Hypokalemia. - Plan Plan: BO. ABX: Nesha.
--- NOTE | 2018-09-29 13:01 | General Progress Note ---
Subjective - Review of Systems Service Date: 09/29/18 Subjective: Patient has dementia patient is a poor historian Objective - Results Result Diagrams: 09/29/18 04:30 09/29/18 04:30 Recent Labs: Laboratory Last Values WBC 13.0 Th/cmm (4.8-10.8) H 09/29/18 04:30 RBC 3.96 Mil/cmm (3.80-5.20) 09/29/18 04:30 Hgb 11.6 gm/dL (12-16) L 09/29/18 04:30 Hct 35.6 % (41.0-60) L 09/29/18 04:30 MCV 89.8 fl (81-100) 09/29/18 04:30 MCH 29.2 pg (27.0-31.0) 09/29/18 04:30 MCHC Differential 32.6 pg (28.0-36.0) 09/29/18 04:30 RDW 13.7 % (11.5-20.0) 09/29/18 04:30 Plt Count 167 Th/cmm (150-400) 09/29/18 04:30 MPV 9.3 fl 09/29/18 04:30 Add Manual Diff YES 09/28/18 05:40 Neutrophils % 85.2 % (40.0-80.0) H 09/29/18 04:30 Band Neutrophils % 0 % (0-10) 09/28/18 05:40 Lymphocytes % 9.3 % (20.0-50.0) L 09/29/18 04:30 Monocytes % 4.2 % (2.0-10.0) 09/29/18 04:30 Eosinophils % 1.1 % (0.0-5.0) 09/29/18 04:30 Basophils % 0.2 % (0.0-2.0) 09/29/18 04:30 Neutrophils (Manual) 89 % (40-80) H 09/28/18 05:40 Lymphocytes 6 % (20-50) L 09/28/18 05:40 Monocytes 5 % (2-10) 09/28/18 05:40 Eosinophils 0 % (0-5) 09/28/18 05:40 Basophils 0 % (0-3) 09/28/18 05:40 Platelet Estimate ADEQUATE (NORMAL) 09/28/18 05:40 Eos Smear Source URINE 09/28/18 17:45 Eos Smear Total Cells NONE SEEN (NONE SEEN) 09/28/18 17:45 PT 9.8 SECONDS (9.5-11.5) 09/27/18 10:50 INR 0.94 (0.5-1.4) 09/27/18 10:50 PTT (Actin FS) 18.1 SECONDS (26.0-38.0) L 09/27/18 10:50 Sodium 155 mEq/L (136-145) H 09/29/18 04:30 Potassium 2.7 mEq/L (3.5-5.1) L* 09/29/18 04:30 Chloride 119 mEq/L (98-107) H 09/29/18 04:30 Carbon Dioxide 27.4 mEq/L (21.0-31.0) 09/29/18 04:30 Anion Gap 11.3 (7.0-16.0) 09/29/18 04:30 BUN 22 mg/dL (7-25) 09/29/18 04:30 Creatinine 1.1 mg/dL (0.6-1.2) 09/29/18 04:30 Est GFR ( Amer) TNP 09/29/18 04:30 Est GFR (Non-Af Amer) TNP 09/29/18 04:30 BUN/Creatinine Ratio 20.0 09/29/18 04:30 Glucose 120 mg/dL (70-105) H 09/29/18 04:30 Whole Bld Lactic Acid 1.33 mmol/L (0.60-1.99) 09/29/18 04:30 Uric Acid 6.2 mg/dL (2.3-6.6) 09/29/18 04:30 Calcium 11.2 mg/dL (8.6-10.3) H 09/29/18 04:30 Magnesium 2.3 mg/dL (1.9-2.7) 09/29/18 04:30 Total Bilirubin 0.4 mg/dL (0.3-1.0) 09/29/18 04:30 AST 16 U/L (13-39) 09/29/18 04:30 ALT 14 U/L (7-52) 09/29/18 04:30 Alkaline Phosphatase 69 U/L (34-104) 09/29/18 04:30 Troponin I 0.06 ng/mL (0.01-0.05) H D 09/28/18 08:30 B-Natriuretic Peptide 14.5 pg/mL (5.0-100.0) 09/27/18 10:50 Total Protein 6.2 gm/dL (6.0-8.3) 09/29/18 04:30 Albumin 3.2 gm/dL (3.7-5.3) L 09/29/18 04:30 Globulin 3.0 gm/dL 09/29/18 04:30 Albumin/Globulin Ratio 1.1 (1.0-1.8) 09/29/18 04:30 Triglycerides 162 mg/dL (<150) H 09/28/18 05:40 Cholesterol 165 mg/dL (<200) 09/28/18 05:40 LDL Cholesterol Direct 79 mg/dL (75-193) 09/28/18 05:40 HDL Cholesterol 54 mg/dL (23-92) 09/28/18 05:40 TSH 0.66 uIU/ml (0.34-5.60) 09/28/18 05:40 Urine Source CLEAN C 09/27/18 12:00 Urine Color YELLOW 09/27/18 12:00 Urine Clarity HAZY (CLEAR) 09/27/18 12:00 Urine pH 7.5 (4.6 - 8.0) 09/27/18 12:00 Ur Specific [place] 1.015 (1.005-1.030) 09/27/18 12:00 Urine Protein NEGATIVE mg/dL (NEGATIVE) 09/27/18 12:00 Urine Glucose (UA) NEGATIVE mg/dL (NEGATIVE) 09/27/18 12:00 Urine Ketones NEGATIVE mg/dL (NEGATIVE) 09/27/18 12:00 Urine Blood TRACE (NEGATIVE) 09/27/18 12:00 Urine Nitrate NEGATIVE (NEGATIVE) 09/27/18 12:00 Urine Bilirubin NEGATIVE (NEGATIVE) 09/27/18 12:00 Urine Urobilinogen 0.2 E.U./dL (0.2 - 1.0) 09/27/18 12:00 Ur Leukocyte Esterase NEGATIVE (NEGATIVE) 09/27/18 12:00 Urine RBC 2-5 /hpf (0-5) 09/27/18 12:00 Urine WBC 0-2 /hpf (0-5) 09/27/18 12:00 Ur Epithelial Cells NONE SEEN /lpf (FEW) 09/27/18 12:00 Amorphous Sediment MODERATE PHOSPHATES (NONE SEEN) 09/27/18 12:00 Urine Bacteria FEW /hpf (NONE SEEN) 09/27/18 12:00 Ur Random Sodium 80 mmol/L 09/28/18 17:45 Urine Creatinine 23.0 mg/dl (28.0-217.0) L 09/28/18 17:45 - Physical Exam Vitals and I&O: Vital Signs Temp 97.2 F 09/29/18 09:42 Pulse 68 09/29/18 09:42 Resp 18 09/29/18 09:42 BP 106/45 09/29/18 09:42 Pulse Ox 98 09/29/18 09:42 Intake & Output 09/28/18 09/29/18 09/29/18 18:59 06:59 18:59 Intake Total 397.5 1350 Balance 397.5 1350 Weight (lbs) 43.545 kg 43.545 kg Intake: Intake, IV Amount 132.5 1100 D5-0.45NS 1,000 ml @ 75 82.5 1000 mls/hr IV .[id number] [facility] Rx #:[id number] Piperacillin Sodium/ 50 100 Tazobact 2.25 gm In Sodium Chloride 0.9% 50 ml @ 100 mls/hr IV Q8HR [facility] Rx#:[id number] Oral 265 250 Other: # Voids 3 3 # Bowel Movements 2 Stool Characteristics Soft Soft Brown Brown Weight Source Bedscale Bedscale Active Medications: Current Medications Aspirin (Aspirin Chewable) 81 mg PO DAILY [facility] Stop: 11/27/18 08:59 Last Admin: 09/29/18 08:52 Dose: 81 mg Atorvastatin Calcium (Lipitor) 20 mg PO HS JONH; Protocol Stop: 11/27/18 20:59 Last Admin: 09/28/18 20:15 Dose: 20 mg Bisacodyl (Dulcolax 10 Mg Supp) 10 mg RC DAILY PRN PRN Reason: Constipation Stop: 11/26/18 15:36 Cholecalciferol (Vitamin D3) 1,000 iu PO DAILY JONH Stop: 11/27/18 08:59 Last Admin: 09/29/18 08:51 Dose: 1,000 iu Cinacalcet (Sensipar) 60 mg PO DAILY JONH Stop: 11/27/18 08:59 Last Admin: 09/29/18 08:52 Dose: 60 mg Donepezil HCl (Aricept) 5 mg PO HS JONH Stop: 11/26/18 20:59 Last Admin: 09/28/18 20:15 Dose: 5 mg Folic Acid (Folate) 1 mg PO DAILY JONH Stop: 11/27/18 08:59 Last Admin: 09/29/18 08:52 Dose: 1 mg Dextrose/Sodium Chloride (D5-0.45ns) 1,000 mls @ 75 mls/hr IV .[id number] JONH Stop: 11/26/18 15:21 Last Admin: 09/29/18 03:59 Dose: 75 mls/hr Piperacillin Sod/Tazobactam (Sod 2.25 gm/ Sodium Chloride) 50 mls @ 100 mls/hr IV Q8HR JONH Stop: 11/26/18 20:59 Last Admin: 09/29/18 12:41 Dose: 100 mls/hr Magnesium Hydroxide (Milk Of Magnesia) 30 ml PO Q72HR PRN PRN Reason: Constipation Stop: 11/26/18 15:36 Memantine (Namenda) 5 mg PO DAILY JONH Stop: 11/27/18 08:59 Last Admin: 09/29/18 08:52 Dose: 5 mg Multivitamins/Vitamin C (Theragran) 1 tab PO DAILY JONH Stop: 11/27/18 08:59 Last Admin: 09/29/18 08:52 Dose: 1 tab Potassium Chloride (Klor-Con) 20 meq PO DAILY JONH Stop: 11/27/18 08:59 Last Admin: 09/29/18 08:52 Dose: 20 meq Sodium Phosphate (Fleet Enema) 135 ml RC DAILY PRN PRN Reason: Constipation Stop: 11/26/18 15:36 General: No acute distress HEENT: Mucous membr. moist/pink Neck: Supple, JVD, +2 carotid pulse wo bruit Cardiovascular: Regular rate (flat), Normal S1, Normal S2, Systolic murmurs Lungs: Clear to auscultation, Normal air movement Abdomen: Bowel sounds, Soft, Other Extremities: Pulses (thyromegaly normal) Neurological: Cranial nerves 3-12 NL, Reflexes 2+ Assessment/Plan - Assessment Assessment: Hypo-tension Hypothyroid Hyperlipidemia 6 daily Dementia Hypernatremia Hypercalcemia - Plan Plan: Continue present management troponin level slightly elevated failure repeat level again
--- NOTE | 2018-09-29 16:25 | General Progress Note ---
Subjective - Review of Systems Service Date: 09/29/18 Subjective: awake, comfortable Objective - Results Result Diagrams: 09/29/18 04:30 09/29/18 04:30 Recent Labs: Laboratory Last Values WBC 13.0 Th/cmm (4.8-10.8) H 09/29/18 04:30 RBC 3.96 Mil/cmm (3.80-5.20) 09/29/18 04:30 Hgb 11.6 gm/dL (12-16) L 09/29/18 04:30 Hct 35.6 % (41.0-60) L 09/29/18 04:30 MCV 89.8 fl (81-100) 09/29/18 04:30 MCH 29.2 pg (27.0-31.0) 09/29/18 04:30 MCHC Differential 32.6 pg (28.0-36.0) 09/29/18 04:30 RDW 13.7 % (11.5-20.0) 09/29/18 04:30 Plt Count 167 Th/cmm (150-400) 09/29/18 04:30 MPV 9.3 fl 09/29/18 04:30 Add Manual Diff YES 09/28/18 05:40 Neutrophils % 85.2 % (40.0-80.0) H 09/29/18 04:30 Band Neutrophils % 0 % (0-10) 09/28/18 05:40 Lymphocytes % 9.3 % (20.0-50.0) L 09/29/18 04:30 Monocytes % 4.2 % (2.0-10.0) 09/29/18 04:30 Eosinophils % 1.1 % (0.0-5.0) 09/29/18 04:30 Basophils % 0.2 % (0.0-2.0) 09/29/18 04:30 Neutrophils (Manual) 89 % (40-80) H 09/28/18 05:40 Lymphocytes 6 % (20-50) L 09/28/18 05:40 Monocytes 5 % (2-10) 09/28/18 05:40 Eosinophils 0 % (0-5) 09/28/18 05:40 Basophils 0 % (0-3) 09/28/18 05:40 Platelet Estimate ADEQUATE (NORMAL) 09/28/18 05:40 Eos Smear Source URINE 09/28/18 17:45 Eos Smear Total Cells NONE SEEN (NONE SEEN) 09/28/18 17:45 PT 9.8 SECONDS (9.5-11.5) 09/27/18 10:50 INR 0.94 (0.5-1.4) 09/27/18 10:50 PTT (Actin FS) 18.1 SECONDS (26.0-38.0) L 09/27/18 10:50 Sodium 155 mEq/L (136-145) H 09/29/18 04:30 Potassium 2.7 mEq/L (3.5-5.1) L* 09/29/18 04:30 Chloride 119 mEq/L (98-107) H 09/29/18 04:30 Carbon Dioxide 27.4 mEq/L (21.0-31.0) 09/29/18 04:30 Anion Gap 11.3 (7.0-16.0) 09/29/18 04:30 BUN 22 mg/dL (7-25) 09/29/18 04:30 Creatinine 1.1 mg/dL (0.6-1.2) 09/29/18 04:30 Est GFR ( Amer) TNP 09/29/18 04:30 Est GFR (Non-Af Amer) TNP 09/29/18 04:30 BUN/Creatinine Ratio 20.0 09/29/18 04:30 Glucose 120 mg/dL (70-105) H 09/29/18 04:30 Whole Bld Lactic Acid 1.33 mmol/L (0.60-1.99) 09/29/18 04:30 Uric Acid 6.2 mg/dL (2.3-6.6) 09/29/18 04:30 Calcium 11.2 mg/dL (8.6-10.3) H 09/29/18 04:30 Magnesium 2.3 mg/dL (1.9-2.7) 09/29/18 04:30 Total Bilirubin 0.4 mg/dL (0.3-1.0) 09/29/18 04:30 AST 16 U/L (13-39) 09/29/18 04:30 ALT 14 U/L (7-52) 09/29/18 04:30 Alkaline Phosphatase 69 U/L (34-104) 09/29/18 04:30 Troponin I 0.06 ng/mL (0.01-0.05) H D 09/28/18 08:30 B-Natriuretic Peptide 14.5 pg/mL (5.0-100.0) 09/27/18 10:50 Total Protein 6.2 gm/dL (6.0-8.3) 09/29/18 04:30 Albumin 3.2 gm/dL (3.7-5.3) L 09/29/18 04:30 Globulin 3.0 gm/dL 09/29/18 04:30 Albumin/Globulin Ratio 1.1 (1.0-1.8) 09/29/18 04:30 Triglycerides 162 mg/dL (<150) H 09/28/18 05:40 Cholesterol 165 mg/dL (<200) 09/28/18 05:40 LDL Cholesterol Direct 79 mg/dL (75-193) 09/28/18 05:40 HDL Cholesterol 54 mg/dL (23-92) 09/28/18 05:40 TSH 0.66 uIU/ml (0.34-5.60) 09/28/18 05:40 Urine Source CLEAN C 09/27/18 12:00 Urine Color YELLOW 09/27/18 12:00 Urine Clarity HAZY (CLEAR) 09/27/18 12:00 Urine pH 7.5 (4.6 - 8.0) 09/27/18 12:00 Ur Specific [place] 1.015 (1.005-1.030) 09/27/18 12:00 Urine Protein NEGATIVE mg/dL (NEGATIVE) 09/27/18 12:00 Urine Glucose (UA) NEGATIVE mg/dL (NEGATIVE) 09/27/18 12:00 Urine Ketones NEGATIVE mg/dL (NEGATIVE) 09/27/18 12:00 Urine Blood TRACE (NEGATIVE) 09/27/18 12:00 Urine Nitrate NEGATIVE (NEGATIVE) 09/27/18 12:00 Urine Bilirubin NEGATIVE (NEGATIVE) 09/27/18 12:00 Urine Urobilinogen 0.2 E.U./dL (0.2 - 1.0) 09/27/18 12:00 Ur Leukocyte Esterase NEGATIVE (NEGATIVE) 09/27/18 12:00 Urine RBC 2-5 /hpf (0-5) 09/27/18 12:00 Urine WBC 0-2 /hpf (0-5) 09/27/18 12:00 Ur Epithelial Cells NONE SEEN /lpf (FEW) 09/27/18 12:00 Amorphous Sediment MODERATE PHOSPHATES (NONE SEEN) 09/27/18 12:00 Urine Bacteria FEW /hpf (NONE SEEN) 09/27/18 12:00 Ur Random Sodium 80 mmol/L 09/28/18 17:45 Urine Creatinine 23.0 mg/dl (28.0-217.0) L 09/28/18 17:45 - Physical Exam Vitals and I&O: Vital Signs Temp 97.2 F 09/29/18 09:42 Pulse 68 09/29/18 09:42 Resp 18 09/29/18 09:42 BP 106/45 09/29/18 09:42 Pulse Ox 98 09/29/18 09:42 Intake & Output 09/28/18 09/29/18 09/29/18 18:59 06:59 18:59 Intake Total 397.5 1350 Balance 397.5 1350 Weight (lbs) 43.545 kg 43.545 kg Intake: Intake, IV Amount 132.5 1100 D5-0.45NS 1,000 ml @ 75 82.5 1000 mls/hr IV .[id number] [facility] Rx #:[id number] Piperacillin Sodium/ 50 100 Tazobact 2.25 gm In Sodium Chloride 0.9% 50 ml @ 100 mls/hr IV Q8HR [facility] Rx#:[id number] Oral 265 250 Other: # Voids 3 3 # Bowel Movements 2 Stool Characteristics Soft Soft Brown Brown Weight Source Bedscale Bedscale Active Medications: Current Medications Aspirin (Aspirin Chewable) 81 mg PO DAILY [facility] Stop: 11/27/18 08:59 Last Admin: 09/29/18 08:52 Dose: 81 mg Atorvastatin Calcium (Lipitor) 20 mg PO HS JONH; Protocol Stop: 11/27/18 20:59 Last Admin: 09/28/18 20:15 Dose: 20 mg Bisacodyl (Dulcolax 10 Mg Supp) 10 mg RC DAILY PRN PRN Reason: Constipation Stop: 11/26/18 15:36 Cholecalciferol (Vitamin D3) 1,000 iu PO DAILY JONH Stop: 11/27/18 08:59 Last Admin: 09/29/18 08:51 Dose: 1,000 iu Cinacalcet (Sensipar) 60 mg PO DAILY JONH Stop: 11/27/18 08:59 Last Admin: 09/29/18 08:52 Dose: 60 mg Donepezil HCl (Aricept) 5 mg PO HS JONH Stop: 11/26/18 20:59 Last Admin: 09/28/18 20:15 Dose: 5 mg Folic Acid (Folate) 1 mg PO DAILY JONH Stop: 11/27/18 08:59 Last Admin: 09/29/18 08:52 Dose: 1 mg Dextrose/Sodium Chloride (D5-0.45ns) 1,000 mls @ 75 mls/hr IV .[id number] JONH Stop: 11/26/18 15:21 Last Admin: 09/29/18 03:59 Dose: 75 mls/hr Piperacillin Sod/Tazobactam (Sod 2.25 gm/ Sodium Chloride) 50 mls @ 100 mls/hr IV Q8HR JONH Stop: 11/26/18 20:59 Last Admin: 09/29/18 12:41 Dose: 100 mls/hr Magnesium Hydroxide (Milk Of Magnesia) 30 ml PO Q72HR PRN PRN Reason: Constipation Stop: 11/26/18 15:36 Memantine (Namenda) 5 mg PO DAILY JONH Stop: 11/27/18 08:59 Last Admin: 09/29/18 08:52 Dose: 5 mg Multivitamins/Vitamin C (Theragran) 1 tab PO DAILY JONH Stop: 11/27/18 08:59 Last Admin: 09/29/18 08:52 Dose: 1 tab Potassium Chloride (Klor-Con) 20 meq PO DAILY JONH Stop: 11/27/18 08:59 Last Admin: 09/29/18 08:52 Dose: 20 meq Sodium Phosphate (Fleet Enema) 135 ml RC DAILY PRN PRN Reason: Constipation Stop: 11/26/18 15:36 General: Alert, No acute distress HEENT: Atraumatic, Mucous membr. moist/pink Neck: Supple, JVD, +2 carotid pulse wo bruit Cardiovascular: Regular rate (flat), Normal S1, Normal S2 Lungs: Clear to auscultation, Normal air movement Abdomen: Bowel sounds, Soft, Other Extremities: Pulses (thyromegaly normal) Neurological: Sensation intact, Reflexes 2+ Skin: no Rash Psych/Mental Status: Other (depressed) Assessment/Plan - Assessment Assessment: SATNAM ALOC Met/Toxic Enceph Sepsis Dehydration Alzh Dementia Hypernatremia Primary Hyperparathyroid - Plan Plan: Lab - Result Diagrams 09/29/18 04:30 09/29/18 04:30 Current Medications Aspirin (Aspirin Chewable) 81 mg PO DAILY JONH Stop: 11/27/18 08:59 Last Admin: 09/29/18 08:52 Dose: 81 mg Atorvastatin Calcium (Lipitor) 20 mg PO HS JONH; Protocol Stop: 11/27/18 20:59 Last Admin: 09/28/18 20:15 Dose: 20 mg Bisacodyl (Dulcolax 10 Mg Supp) 10 mg RC DAILY PRN PRN Reason: Constipation Stop: 11/26/18 15:36 Cholecalciferol (Vitamin D3) 1,000 iu PO DAILY JONH Stop: 11/27/18 08:59 Last Admin: 09/29/18 08:51 Dose: 1,000 iu Cinacalcet (Sensipar) 60 mg PO DAILY JONH Stop: 11/27/18 08:59 Last Admin: 09/29/18 08:52 Dose: 60 mg Donepezil HCl (Aricept) 5 mg PO HS JONH Stop: 11/26/18 20:59 Last Admin: 09/28/18 20:15 Dose: 5 mg Folic Acid (Folate) 1 mg PO DAILY JONH Stop: 11/27/18 08:59 Last Admin: 09/29/18 08:52 Dose: 1 mg Dextrose/Sodium Chloride (D5-0.45ns) 1,000 mls @ 75 mls/hr IV .[id number] [facility]ON[facility] Stop: 11/26/18 15:21 Last Admin: 09/29/18 03:59 Dose: 75 mls/hr Piperacillin Sod/Tazobactam (Sod 2.25 gm/ Sodium Chloride) 50 mls @ 100 mls/hr IV Q8HR JON[facility] Stop: 11/26/18 20:59 Last Admin: 09/29/18 12:41 Dose: 100 mls/hr Magnesium Hydroxide (Milk Of Magnesia) 30 ml PO Q72HR PRN PRN Reason: Constipation Stop: 11/26/18 15:36 Memantine (Namenda) 5 mg PO DAILY JONH Stop: 11/27/18 08:59 Last Admin: 09/29/18 08:52 Dose: 5 mg Multivitamins/Vitamin C (Theragran) 1 tab PO DAILY JONH Stop: 11/27/18 08:59 Last Admin: 09/29/18 08:52 Dose: 1 tab Potassium Chloride (Klor-Con) 20 meq PO DAILY JONH Stop: 11/27/18 08:59 Last Admin: 09/29/18 08:52 Dose: 20 meq Sodium Phosphate (Fleet Enema) 135 ml RC DAILY PRN PRN Reason: Constipation Stop: 11/26/18 15:36 Lab - Result Diagrams 09/29/18 04:30 09/29/18 04:30 Kidney fnc better w/BUN/CR of 22/1.1 Na down to 155 agree w/ K replacement renal US unremarkable continue IVF FE Na 2.47% suggestive of intrinsic renal involvement f/u electrolytes, cbc
--- NOTE | 2018-09-29 18:58 | Internal Medicine Prog Note ---
Internal Medicine Subjective - Subjective Service Date: 09/29/18 Patient is:: awake, verbal Patient Complaints of:: other (pt. was admitted with Hypotension.) Per staff patient has:: no adverse event, no episodes of fall Internal Medicine Objective - Results Result Diagrams: 09/29/18 04:30 09/29/18 04:30 Recent Labs: Laboratory Last Values WBC 13.0 Th/cmm (4.8-10.8) H 09/29/18 04:30 RBC 3.96 Mil/cmm (3.80-5.20) 09/29/18 04:30 Hgb 11.6 gm/dL (12-16) L 09/29/18 04:30 Hct 35.6 % (41.0-60) L 09/29/18 04:30 MCV 89.8 fl (81-100) 09/29/18 04:30 MCH 29.2 pg (27.0-31.0) 09/29/18 04:30 MCHC Differential 32.6 pg (28.0-36.0) 09/29/18 04:30 RDW 13.7 % (11.5-20.0) 09/29/18 04:30 Plt Count 167 Th/cmm (150-400) 09/29/18 04:30 MPV 9.3 fl 09/29/18 04:30 Add Manual Diff YES 09/28/18 05:40 Neutrophils % 85.2 % (40.0-80.0) H 09/29/18 04:30 Band Neutrophils % 0 % (0-10) 09/28/18 05:40 Lymphocytes % 9.3 % (20.0-50.0) L 09/29/18 04:30 Monocytes % 4.2 % (2.0-10.0) 09/29/18 04:30 Eosinophils % 1.1 % (0.0-5.0) 09/29/18 04:30 Basophils % 0.2 % (0.0-2.0) 09/29/18 04:30 Neutrophils (Manual) 89 % (40-80) H 09/28/18 05:40 Lymphocytes 6 % (20-50) L 09/28/18 05:40 Monocytes 5 % (2-10) 09/28/18 05:40 Eosinophils 0 % (0-5) 09/28/18 05:40 Basophils 0 % (0-3) 09/28/18 05:40 Platelet Estimate ADEQUATE (NORMAL) 09/28/18 05:40 Eos Smear Source URINE 09/28/18 17:45 Eos Smear Total Cells NONE SEEN (NONE SEEN) 09/28/18 17:45 PT 9.8 SECONDS (9.5-11.5) 09/27/18 10:50 INR 0.94 (0.5-1.4) 09/27/18 10:50 PTT (Actin FS) 18.1 SECONDS (26.0-38.0) L 09/27/18 10:50 Sodium 155 mEq/L (136-145) H 09/29/18 04:30 Potassium 2.7 mEq/L (3.5-5.1) L* 09/29/18 04:30 Chloride 119 mEq/L (98-107) H 09/29/18 04:30 Carbon Dioxide 27.4 mEq/L (21.0-31.0) 09/29/18 04:30 Anion Gap 11.3 (7.0-16.0) 09/29/18 04:30 BUN 22 mg/dL (7-25) 09/29/18 04:30 Creatinine 1.1 mg/dL (0.6-1.2) 09/29/18 04:30 Est GFR ( Amer) TNP 09/29/18 04:30 Est GFR (Non-Af Amer) TNP 09/29/18 04:30 BUN/Creatinine Ratio 20.0 09/29/18 04:30 Glucose 120 mg/dL (70-105) H 09/29/18 04:30 Whole Bld Lactic Acid 1.33 mmol/L (0.60-1.99) 09/29/18 04:30 Uric Acid 6.2 mg/dL (2.3-6.6) 09/29/18 04:30 Calcium 11.2 mg/dL (8.6-10.3) H 09/29/18 04:30 Magnesium 2.3 mg/dL (1.9-2.7) 09/29/18 04:30 Total Bilirubin 0.4 mg/dL (0.3-1.0) 09/29/18 04:30 AST 16 U/L (13-39) 09/29/18 04:30 ALT 14 U/L (7-52) 09/29/18 04:30 Alkaline Phosphatase 69 U/L (34-104) 09/29/18 04:30 Troponin I 0.06 ng/mL (0.01-0.05) H D 09/28/18 08:30 B-Natriuretic Peptide 14.5 pg/mL (5.0-100.0) 09/27/18 10:50 Total Protein 6.2 gm/dL (6.0-8.3) 09/29/18 04:30 Albumin 3.2 gm/dL (3.7-5.3) L 09/29/18 04:30 Globulin 3.0 gm/dL 09/29/18 04:30 Albumin/Globulin Ratio 1.1 (1.0-1.8) 09/29/18 04:30 Triglycerides 162 mg/dL (<150) H 09/28/18 05:40 Cholesterol 165 mg/dL (<200) 09/28/18 05:40 LDL Cholesterol Direct 79 mg/dL (75-193) 09/28/18 05:40 HDL Cholesterol 54 mg/dL (23-92) 09/28/18 05:40 TSH 0.66 uIU/ml (0.34-5.60) 09/28/18 05:40 Urine Source CLEAN C 09/27/18 12:00 Urine Color YELLOW 09/27/18 12:00 Urine Clarity HAZY (CLEAR) 09/27/18 12:00 Urine pH 7.5 (4.6 - 8.0) 09/27/18 12:00 Ur Specific [place] 1.015 (1.005-1.030) 09/27/18 12:00 Urine Protein NEGATIVE mg/dL (NEGATIVE) 09/27/18 12:00 Urine Glucose (UA) NEGATIVE mg/dL (NEGATIVE) 09/27/18 12:00 Urine Ketones NEGATIVE mg/dL (NEGATIVE) 09/27/18 12:00 Urine Blood TRACE (NEGATIVE) 09/27/18 12:00 Urine Nitrate NEGATIVE (NEGATIVE) 09/27/18 12:00 Urine Bilirubin NEGATIVE (NEGATIVE) 09/27/18 12:00 Urine Urobilinogen 0.2 E.U./dL (0.2 - 1.0) 09/27/18 12:00 Ur Leukocyte Esterase NEGATIVE (NEGATIVE) 09/27/18 12:00 Urine RBC 2-5 /hpf (0-5) 09/27/18 12:00 Urine WBC 0-2 /hpf (0-5) 09/27/18 12:00 Ur Epithelial Cells NONE SEEN /lpf (FEW) 09/27/18 12:00 Amorphous Sediment MODERATE PHOSPHATES (NONE SEEN) 09/27/18 12:00 Urine Bacteria FEW /hpf (NONE SEEN) 09/27/18 12:00 Ur Random Sodium 80 mmol/L 09/28/18 17:45 Urine Creatinine 23.0 mg/dl (28.0-217.0) L 09/28/18 17:45 - Physical Exam Vitals and I&O: Vital Signs Temp 97.2 F 09/29/18 14:00 Pulse 71 09/29/18 14:00 Resp 18 09/29/18 17:00 BP 116/50 09/29/18 14:00 Pulse Ox 98 09/29/18 14:00 Intake & Output 09/28/18 09/29/18 09/29/18 18:59 06:59 18:59 Intake Total 397.5 1350 Balance 397.5 1350 Weight (lbs) 96 lb 96 lb Intake: Intake, IV Amount 132.5 1100 D5-0.45NS 1,000 ml @ 75 82.5 1000 mls/hr IV .[id number] [facility] Rx #:[id number] Piperacillin Sodium/ 50 100 Tazobact 2.25 gm In Sodium Chloride 0.9% 50 ml @ 100 mls/hr IV Q8HR [facility] Rx#:[id number] Oral 265 250 Other: # Voids 3 3 # Bowel Movements 2 Stool Characteristics Soft Soft Brown Brown Weight Source Bedscale Bedscale Active Medications: Current Medications Aspirin (Aspirin Chewable) 81 mg PO DAILY [facility] Stop: 11/27/18 08:59 Last Admin: 09/29/18 08:52 Dose: 81 mg Atorvastatin Calcium (Lipitor) 20 mg PO HS [facility]; Protocol Stop: 11/27/18 20:59 Last Admin: 09/28/18 20:15 Dose: 20 mg Bisacodyl (Dulcolax 10 Mg Supp) 10 mg RC DAILY PRN PRN Reason: Constipation Stop: 11/26/18 15:36 Cholecalciferol (Vitamin D3) 1,000 iu PO DAILY [facility] Stop: 11/27/18 08:59 Last Admin: 09/29/18 08:51 Dose: 1,000 iu Cinacalcet (Sensipar) 60 mg PO DAILY [facility] Stop: 11/27/18 08:59 Last Admin: 09/29/18 08:52 Dose: 60 mg Donepezil HCl (Aricept) 5 mg PO HS [facility] Stop: 11/26/18 20:59 Last Admin: 09/28/18 20:15 Dose: 5 mg Folic Acid (Folate) 1 mg PO DAILY [facility] Stop: 11/27/18 08:59 Last Admin: 09/29/18 08:52 Dose: 1 mg Dextrose/Sodium Chloride (D5-0.45ns) 1,000 mls @ 75 mls/hr IV .[id number] [facility] Stop: 11/26/18 15:21 Last Admin: 09/29/18 03:59 Dose: 75 mls/hr Piperacillin Sod/Tazobactam (Sod 2.25 gm/ Sodium Chloride) 50 mls @ 100 mls/hr IV Q8HR [facility] Stop: 11/26/18 20:59 Last Admin: 09/29/18 12:41 Dose: 100 mls/hr Magnesium Hydroxide (Milk Of Magnesia) 30 ml PO Q72HR PRN PRN Reason: Constipation Stop: 11/26/18 15:36 Memantine (Namenda) 5 mg PO DAILY [facility] Stop: 11/27/18 08:59 Last Admin: 09/29/18 08:52 Dose: 5 mg Multivitamins/Vitamin C (Theragran) 1 tab PO DAILY [facility] Stop: 11/27/18 08:59 Last Admin: 09/29/18 08:52 Dose: 1 tab Potassium Chloride (Klor-Con) 20 meq PO DAILY [facility] Stop: 11/27/18 08:59 Last Admin: 09/29/18 08:52 Dose: 20 meq Sodium Phosphate (Fleet Enema) 135 ml RC DAILY PRN PRN Reason: Constipation Stop: 11/26/18 15:36 General: weak HEENT: NC/AT Neck: Supple, No JVD Lungs: CTAB Cardiovascular: RRR, Normal S1 Abdomen: soft, non-tender Extremities: clear Neurological: no change Internal Medicine Assmt/Plan - Assessment Assessment: Hypotension. Dementia. Leukocytosis. Hypernatremia. Elevated Troponin. - Plan Plan: Continuation of care. Monitor Vitals and Labs. Continue present meds as directed. Monitor Diet/Nutritional support. Psych management as per Psych. Pain Management. Safety precaution. Supportive care. Fall precaution, frequent nursing rounds, and as needed restraints to prevent fall. Continue collaborating with consulting specialists, case management and nursing team. Will Monitor patient and continue current treatment plan as ordered.
[2018-09-29] MEDS: Atorvastatin Calcium 10 MG TAB PO SCH (21:30)
--- NOTE | 2018-09-29 22:38 | Cardiology ---
09/28/[address] Farrar. M-MODE ECHOCARDIOGRAM: Mitral valve, anterior leaflet of mitral valve shows normal excursion, EF velocity. Posterior leaflet of the mitral valve shows normal excursion. Left ventricular posterior wall shows increased thickness, normal excursion. Interventricular septum shows increased thickness, normal excursion, hypertrophy of the left ventricle, ejection fraction 63%. Left atrium normal. Aortic root shows normal dimension, normal excursion of aortic leaflets. CONCLUSION: Hypertrophy of the left ventricle, ejection fraction 63%. 2D ECHO: Long axis view showed normal sized left ventricle with hypertrophy of the left ventricle. Left atrium normal. Aortic root shows normal dimension, normal excursion of aortic leaflets. Short axis view of mitral valve normal. Short axis view of aortic valve normal. Apical four chamber view showed normal sized left ventricle with hypertrophy of the left ventricle. Left atrium normal. Right ventricular cavity, right atrium normal. No pericardial effusion. CONCLUSION: Hypertrophy of the left ventricle, ejection fraction 63%. Doppler study showed trace mitral regurgitation, trace tricuspid regurgitation, right ventricular systolic pressure 26 mmHg. JOB# [id number]
[2018-09-30 05:22] LABS: % EOSINOPHILS 0.9 % (0.0-5.0); % LYMPHOCYTES 10.4 % (20.0-50.0); % MONOCYTES 4.2 % (2.0-10.0); % NEUTROPHILS 84.5 % (40.0-80.0); EOSINOPHILE ABSOLUTE 0.1 Th/cmm (0.1-0.4); HEMATOCRIT 35.3 % (41.0-60); HEMOGLOBIN 11.8 gm/dL (12-16); LYMPHOCYTE ABSOLUTE 1.4 Th/cmm (1.5-3.0); MEAN CELL VOLUME 89.8 fl (81-100); MEAN CORPUSCULAR HGB CONC 33.4 pg (28.0-36.0); MONOCYTE ABSOLUTE 0.6 Th/cmm (0.3-1.0); PLATELET COUNT 162 Th/cmm (150-400); RED BLOOD COUNT 3.93 Mil/cmm (3.80-5.20); RED CELL DISTRIBUTION WIDTH 13.5 % (11.5-20.0); WHITE BLOOD COUNT 13.1 Th/cmm (4.8-10.8)
[2018-09-30 05:38] LABS: BUN - UREA NITROGEN 13 mg/dL (7-25); CALCIUM SERUM 10.8 mg/dL (8.6-10.3); CARBON DIOXIDE 22.8 mEq/L (21.0-31.0); CHLORIDE 119 mEq/L (98-107); CREATININE - SERUM 0.9 mg/dL (0.6-1.2); GLUCOSE 122 mg/dL (70-105); SODIUM SERUM 151 mEq/L (136-145)
[2018-09-30 05:48] LABS: POTASSIUM SERUM 2.8 mEq/L (3.5-5.1)
[2018-09-30] MEDS ORDERED: Potassium Chloride 20 mEq ER Tab PO ONE ×2 (07:00→12:08)
--- NOTE | 2018-09-30 08:11 | Internal Medicine Prog Note ---
Internal Medicine Subjective - Subjective Service Date: 09/30/18 Patient is:: awake, verbal Patient Complaints of:: other (pt. was admitted with Hypotension.) Per staff patient has:: no adverse event, no episodes of fall Internal Medicine Objective - Results Result Diagrams: 09/30/18 04:20 09/30/18 04:20 Recent Labs: Laboratory Last Values WBC 13.1 Th/cmm (4.8-10.8) H 09/30/18 04:20 RBC 3.93 Mil/cmm (3.80-5.20) 09/30/18 04:20 Hgb 11.8 gm/dL (12-16) L 09/30/18 04:20 Hct 35.3 % (41.0-60) L 09/30/18 04:20 MCV 89.8 fl (81-100) 09/30/18 04:20 MCH 30.0 pg (27.0-31.0) 09/30/18 04:20 MCHC Differential 33.4 pg (28.0-36.0) 09/30/18 04:20 RDW 13.5 % (11.5-20.0) 09/30/18 04:20 Plt Count 162 Th/cmm (150-400) 09/30/18 04:20 MPV 9.6 fl 09/30/18 04:20 Add Manual Diff YES 09/28/18 05:40 Neutrophils % 84.5 % (40.0-80.0) H 09/30/18 04:20 Band Neutrophils % 0 % (0-10) 09/28/18 05:40 Lymphocytes % 10.4 % (20.0-50.0) L 09/30/18 04:20 Monocytes % 4.2 % (2.0-10.0) 09/30/18 04:20 Eosinophils % 0.9 % (0.0-5.0) 09/30/18 04:20 Basophils % 0.0 % (0.0-2.0) 09/30/18 04:20 Neutrophils (Manual) 89 % (40-80) H 09/28/18 05:40 Lymphocytes 6 % (20-50) L 09/28/18 05:40 Monocytes 5 % (2-10) 09/28/18 05:40 Eosinophils 0 % (0-5) 09/28/18 05:40 Basophils 0 % (0-3) 09/28/18 05:40 Platelet Estimate ADEQUATE (NORMAL) 09/28/18 05:40 Eos Smear Source URINE 09/28/18 17:45 Eos Smear Total Cells NONE SEEN (NONE SEEN) 09/28/18 17:45 PT 9.8 SECONDS (9.5-11.5) 09/27/18 10:50 INR 0.94 (0.5-1.4) 09/27/18 10:50 PTT (Actin FS) 18.1 SECONDS (26.0-38.0) L 09/27/18 10:50 Sodium 151 mEq/L (136-145) H 09/30/18 04:20 Potassium 2.8 mEq/L (3.5-5.1) L* 09/30/18 04:20 Chloride 119 mEq/L (98-107) H 09/30/18 04:20 Carbon Dioxide 22.8 mEq/L (21.0-31.0) 09/30/18 04:20 Anion Gap 12.0 (7.0-16.0) 09/30/18 04:20 BUN 13 mg/dL (7-25) 09/30/18 04:20 Creatinine 0.9 mg/dL (0.6-1.2) 09/30/18 04:20 Est GFR ( Amer) TNP 09/30/18 04:20 Est GFR (Non-Af Amer) TNP 09/30/18 04:20 BUN/Creatinine Ratio 14.4 09/30/18 04:20 Glucose 122 mg/dL (70-105) H 09/30/18 04:20 Whole Bld Lactic Acid 1.33 mmol/L (0.60-1.99) 09/29/18 04:30 Uric Acid 6.2 mg/dL (2.3-6.6) 09/29/18 04:30 Calcium 10.8 mg/dL (8.6-10.3) H 09/30/18 04:20 Magnesium 2.3 mg/dL (1.9-2.7) 09/29/18 04:30 Total Bilirubin 0.4 mg/dL (0.3-1.0) 09/29/18 04:30 AST 16 U/L (13-39) 09/29/18 04:30 ALT 14 U/L (7-52) 09/29/18 04:30 Alkaline Phosphatase 69 U/L (34-104) 09/29/18 04:30 Troponin I 0.05 ng/mL (0.01-0.05) 09/30/18 04:20 B-Natriuretic Peptide 14.5 pg/mL (5.0-100.0) 09/27/18 10:50 Total Protein 6.2 gm/dL (6.0-8.3) 09/29/18 04:30 Albumin 3.2 gm/dL (3.7-5.3) L 09/29/18 04:30 Globulin 3.0 gm/dL 09/29/18 04:30 Albumin/Globulin Ratio 1.1 (1.0-1.8) 09/29/18 04:30 Triglycerides 162 mg/dL (<150) H 09/28/18 05:40 Cholesterol 165 mg/dL (<200) 09/28/18 05:40 LDL Cholesterol Direct 79 mg/dL (75-193) 09/28/18 05:40 HDL Cholesterol 54 mg/dL (23-92) 09/28/18 05:40 TSH 0.66 uIU/ml (0.34-5.60) 09/28/18 05:40 Urine Source CLEAN C 09/27/18 12:00 Urine Color YELLOW 09/27/18 12:00 Urine Clarity HAZY (CLEAR) 09/27/18 12:00 Urine pH 7.5 (4.6 - 8.0) 09/27/18 12:00 Ur Specific [place] 1.015 (1.005-1.030) 09/27/18 12:00 Urine Protein NEGATIVE mg/dL (NEGATIVE) 09/27/18 12:00 Urine Glucose (UA) NEGATIVE mg/dL (NEGATIVE) 09/27/18 12:00 Urine Ketones NEGATIVE mg/dL (NEGATIVE) 09/27/18 12:00 Urine Blood TRACE (NEGATIVE) 09/27/18 12:00 Urine Nitrate NEGATIVE (NEGATIVE) 09/27/18 12:00 Urine Bilirubin NEGATIVE (NEGATIVE) 09/27/18 12:00 Urine Urobilinogen 0.2 E.U./dL (0.2 - 1.0) 09/27/18 12:00 Ur Leukocyte Esterase NEGATIVE (NEGATIVE) 09/27/18 12:00 Urine RBC 2-5 /hpf (0-5) 09/27/18 12:00 Urine WBC 0-2 /hpf (0-5) 09/27/18 12:00 Ur Epithelial Cells NONE SEEN /lpf (FEW) 09/27/18 12:00 Amorphous Sediment MODERATE PHOSPHATES (NONE SEEN) 09/27/18 12:00 Urine Bacteria FEW /hpf (NONE SEEN) 09/27/18 12:00 Ur Random Sodium 80 mmol/L 09/28/18 17:45 Urine Creatinine 23.0 mg/dl (28.0-217.0) L 09/28/18 17:45 - Physical Exam Vitals and I&O: Vital Signs Temp 98.4 F 09/30/18 04:00 Pulse 76 09/30/18 04:00 Resp 18 09/30/18 04:00 BP 128/53 09/30/18 04:00 Pulse Ox 97 09/30/18 04:00 Intake & Output 09/29/18 09/30/18 09/30/18 18:59 06:59 18:59 Intake Total 175 50 Output Total 1 Balance 174 50 Weight (lbs) 96 lb 90 lb 6 oz Intake: Intake, IV Amount 50 50 Piperacillin Sodium/ 50 50 Tazobact 2.25 gm In Sodium Chloride 0.9% 50 ml @ 100 mls/hr IV Q8HR [facility] Rx#:[id number] Oral 125 Output: Stool 1 Other: # Voids 2 Stool Characteristics Soft Soft Brown Brown Weight Source Bedscale Bedscale Active Medications: Current Medications Aspirin (Aspirin Chewable) 81 mg PO DAILY [facility] Stop: 11/27/18 08:59 Last Admin: 09/29/18 08:52 Dose: 81 mg Atorvastatin Calcium (Lipitor) 20 mg PO [facility]; Protocol Stop: 11/27/18 20:59 Last Admin: 09/29/18 21:30 Dose: 20 mg Bisacodyl (Dulcolax 10 Mg Supp) 10 mg RC DAILY PRN PRN Reason: Constipation Stop: 11/26/18 15:36 Cholecalciferol (Vitamin D3) 1,000 iu PO DAILY [facility] Stop: 11/27/18 08:59 Last Admin: 09/29/18 08:51 Dose: 1,000 iu Cinacalcet (Sensipar) 60 mg PO DAILY [facility] Stop: 11/27/18 08:59 Last Admin: 09/29/18 08:52 Dose: 60 mg Donepezil HCl (Aricept) 5 mg PO HS [facility] Stop: 11/26/18 20:59 Last Admin: 09/29/18 21:30 Dose: 5 mg Folic Acid (Folate) 1 mg PO DAILY [facility] Stop: 11/27/18 08:59 Last Admin: 09/29/18 08:52 Dose: 1 mg Dextrose/Sodium Chloride (D5-0.45ns) 1,000 mls @ 75 mls/hr IV .[id number] [facility] Stop: 11/26/18 15:21 Last Admin: 09/29/18 03:59 Dose: 75 mls/hr Piperacillin Sod/Tazobactam (Sod 2.25 gm/ Sodium Chloride) 50 mls @ 100 mls/hr IV Q8HR [facility] Stop: 11/26/18 20:59 Last Admin: 09/30/18 04:45 Dose: 100 mls/hr Magnesium Hydroxide (Milk Of Magnesia) 30 ml PO Q72HR PRN PRN Reason: Constipation Stop: 11/26/18 15:36 Memantine (Namenda) 5 mg PO DAILY [facility] Stop: 11/27/18 08:59 Last Admin: 09/29/18 08:52 Dose: 5 mg Multivitamins/Vitamin C (Theragran) 1 tab PO DAILY [facility] Stop: 11/27/18 08:59 Last Admin: 09/29/18 08:52 Dose: 1 tab Potassium Chloride (Klor-Con) 20 meq PO DAILY [facility] Stop: 11/27/18 08:59 Last Admin: 09/29/18 08:52 Dose: 20 meq Sodium Phosphate (Fleet Enema) 135 ml RC DAILY PRN PRN Reason: Constipation Stop: 11/26/18 15:36 General: weak HEENT: NC/AT Neck: Supple, No JVD Lungs: CTAB Cardiovascular: RRR, Normal S1 Abdomen: soft, non-tender Extremities: clear Neurological: no change Internal Medicine Assmt/Plan - Assessment Assessment: Hypotension. Dementia. Leukocytosis. Hypernatremia. Elevated Troponin. - Plan Plan: Continuation of care. Monitor Vitals and Labs. Continue present meds as directed. Monitor Diet/Nutritional support. Psych management as per Psych. Pain Management. Safety precaution. Supportive care. Fall precaution, frequent nursing rounds, and as needed restraints to prevent fall. Continue collaborating with consulting specialists, case management and nursing team. Will Monitor patient and continue current treatment plan as ordered.
[2018-09-30] MEDS: Multivitamin Tab PO SCH (08:13)
[2018-09-30] MEDS: Aspirin 81mg Chewable Tab PO SCH (08:13)
[2018-09-30] MEDS: Potassium Chloride 20 mEq ER Tab PO SCH (08:13)
[2018-09-30] MEDS: D5-0.45NS 1,000 ML IV SCH (08:19)
--- NOTE | 2018-09-30 12:05 | General Progress Note ---
Subjective - Review of Systems Service Date: 09/30/18 Subjective: Patient has dementia patient is a poor historian Objective - Results Result Diagrams: 09/30/18 04:20 09/30/18 04:20 Recent Labs: Laboratory Last Values WBC 13.1 Th/cmm (4.8-10.8) H 09/30/18 04:20 RBC 3.93 Mil/cmm (3.80-5.20) 09/30/18 04:20 Hgb 11.8 gm/dL (12-16) L 09/30/18 04:20 Hct 35.3 % (41.0-60) L 09/30/18 04:20 MCV 89.8 fl (81-100) 09/30/18 04:20 MCH 30.0 pg (27.0-31.0) 09/30/18 04:20 MCHC Differential 33.4 pg (28.0-36.0) 09/30/18 04:20 RDW 13.5 % (11.5-20.0) 09/30/18 04:20 Plt Count 162 Th/cmm (150-400) 09/30/18 04:20 MPV 9.6 fl 09/30/18 04:20 Add Manual Diff YES 09/28/18 05:40 Neutrophils % 84.5 % (40.0-80.0) H 09/30/18 04:20 Band Neutrophils % 0 % (0-10) 09/28/18 05:40 Lymphocytes % 10.4 % (20.0-50.0) L 09/30/18 04:20 Monocytes % 4.2 % (2.0-10.0) 09/30/18 04:20 Eosinophils % 0.9 % (0.0-5.0) 09/30/18 04:20 Basophils % 0.0 % (0.0-2.0) 09/30/18 04:20 Neutrophils (Manual) 89 % (40-80) H 09/28/18 05:40 Lymphocytes 6 % (20-50) L 09/28/18 05:40 Monocytes 5 % (2-10) 09/28/18 05:40 Eosinophils 0 % (0-5) 09/28/18 05:40 Basophils 0 % (0-3) 09/28/18 05:40 Platelet Estimate ADEQUATE (NORMAL) 09/28/18 05:40 Eos Smear Source URINE 09/28/18 17:45 Eos Smear Total Cells NONE SEEN (NONE SEEN) 09/28/18 17:45 PT 9.8 SECONDS (9.5-11.5) 09/27/18 10:50 INR 0.94 (0.5-1.4) 09/27/18 10:50 PTT (Actin FS) 18.1 SECONDS (26.0-38.0) L 09/27/18 10:50 Sodium 151 mEq/L (136-145) H 09/30/18 04:20 Potassium 2.8 mEq/L (3.5-5.1) L* 09/30/18 04:20 Chloride 119 mEq/L (98-107) H 09/30/18 04:20 Carbon Dioxide 22.8 mEq/L (21.0-31.0) 09/30/18 04:20 Anion Gap 12.0 (7.0-16.0) 09/30/18 04:20 BUN 13 mg/dL (7-25) 09/30/18 04:20 Creatinine 0.9 mg/dL (0.6-1.2) 09/30/18 04:20 Est GFR ( Amer) TNP 09/30/18 04:20 Est GFR (Non-Af Amer) TNP 09/30/18 04:20 BUN/Creatinine Ratio 14.4 09/30/18 04:20 Glucose 122 mg/dL (70-105) H 09/30/18 04:20 Whole Bld Lactic Acid 1.33 mmol/L (0.60-1.99) 09/29/18 04:30 Uric Acid 6.2 mg/dL (2.3-6.6) 09/29/18 04:30 Calcium 10.8 mg/dL (8.6-10.3) H 09/30/18 04:20 Magnesium 2.3 mg/dL (1.9-2.7) 09/29/18 04:30 Total Bilirubin 0.4 mg/dL (0.3-1.0) 09/29/18 04:30 AST 16 U/L (13-39) 09/29/18 04:30 ALT 14 U/L (7-52) 09/29/18 04:30 Alkaline Phosphatase 69 U/L (34-104) 09/29/18 04:30 Troponin I 0.05 ng/mL (0.01-0.05) 09/30/18 04:20 B-Natriuretic Peptide 14.5 pg/mL (5.0-100.0) 09/27/18 10:50 Total Protein 6.2 gm/dL (6.0-8.3) 09/29/18 04:30 Albumin 3.2 gm/dL (3.7-5.3) L 09/29/18 04:30 Globulin 3.0 gm/dL 09/29/18 04:30 Albumin/Globulin Ratio 1.1 (1.0-1.8) 09/29/18 04:30 Triglycerides 162 mg/dL (<150) H 09/28/18 05:40 Cholesterol 165 mg/dL (<200) 09/28/18 05:40 LDL Cholesterol Direct 79 mg/dL (75-193) 09/28/18 05:40 HDL Cholesterol 54 mg/dL (23-92) 09/28/18 05:40 TSH 0.66 uIU/ml (0.34-5.60) 09/28/18 05:40 Urine Source CLEAN C 09/27/18 12:00 Urine Color YELLOW 09/27/18 12:00 Urine Clarity HAZY (CLEAR) 09/27/18 12:00 Urine pH 7.5 (4.6 - 8.0) 09/27/18 12:00 Ur Specific [place] 1.015 (1.005-1.030) 09/27/18 12:00 Urine Protein NEGATIVE mg/dL (NEGATIVE) 09/27/18 12:00 Urine Glucose (UA) NEGATIVE mg/dL (NEGATIVE) 09/27/18 12:00 Urine Ketones NEGATIVE mg/dL (NEGATIVE) 09/27/18 12:00 Urine Blood TRACE (NEGATIVE) 09/27/18 12:00 Urine Nitrate NEGATIVE (NEGATIVE) 09/27/18 12:00 Urine Bilirubin NEGATIVE (NEGATIVE) 09/27/18 12:00 Urine Urobilinogen 0.2 E.U./dL (0.2 - 1.0) 09/27/18 12:00 Ur Leukocyte Esterase NEGATIVE (NEGATIVE) 09/27/18 12:00 Urine RBC 2-5 /hpf (0-5) 09/27/18 12:00 Urine WBC 0-2 /hpf (0-5) 09/27/18 12:00 Ur Epithelial Cells NONE SEEN /lpf (FEW) 09/27/18 12:00 Amorphous Sediment MODERATE PHOSPHATES (NONE SEEN) 09/27/18 12:00 Urine Bacteria FEW /hpf (NONE SEEN) 09/27/18 12:00 Ur Random Sodium 80 mmol/L 09/28/18 17:45 Urine Creatinine 23.0 mg/dl (28.0-217.0) L 09/28/18 17:45 Microalb/Creat Ratio 103.0 mg/g creat (0.0-30.0) H 09/28/18 17:45 - Physical Exam Vitals and I&O: Vital Signs Temp 97.6 F 09/30/18 08:00 Pulse 78 09/30/18 08:00 Resp 18 09/30/18 11:45 BP 119/61 09/30/18 08:00 Pulse Ox 94 09/30/18 08:00 Intake & Output 09/29/18 09/30/18 09/30/18 18:59 06:59 18:59 Intake Total 1175 100 Output Total 1 Balance 1174 100 Weight (lbs) 43.545 kg 40.993 kg Intake: Intake, IV Amount 1050 100 D5-0.45NS 1,000 ml @ 75 1000 mls/hr IV .[id number] [facility] Rx #:[id number] Piperacillin Sodium/ 50 100 Tazobact 2.25 gm In Sodium Chloride 0.9% 50 ml @ 100 mls/hr IV Q8HR [facility] Rx#:[id number] Oral 125 Output: Stool 1 Other: # Voids 2 Stool Characteristics Soft Soft Brown Brown Weight Source Bedscale Bedscale Active Medications: Current Medications Aspirin (Aspirin Chewable) 81 mg PO DAILY [facility] Stop: 11/27/18 08:59 Last Admin: 09/30/18 08:13 Dose: 81 mg Atorvastatin Calcium (Lipitor) 20 mg PO HS [facility]; Protocol Stop: 11/27/18 20:59 Last Admin: 09/29/18 21:30 Dose: 20 mg Bisacodyl (Dulcolax 10 Mg Supp) 10 mg RC DAILY PRN PRN Reason: Constipation Stop: 11/26/18 15:36 Cholecalciferol (Vitamin D3) 1,000 iu PO DAILY [facility] Stop: 11/27/18 08:59 Last Admin: 09/30/18 08:12 Dose: 1,000 iu Cinacalcet (Sensipar) 60 mg PO DAILY [facility] Stop: 11/27/18 08:59 Last Admin: 09/30/18 08:12 Dose: 60 mg Donepezil HCl (Aricept) 5 mg PO HS [facility] Stop: 11/26/18 20:59 Last Admin: 09/29/18 21:30 Dose: 5 mg Folic Acid (Folate) 1 mg PO DAILY [facility] Stop: 11/27/18 08:59 Last Admin: 09/30/18 08:13 Dose: 1 mg Dextrose/Sodium Chloride (D5-0.45ns) 1,000 mls @ 75 mls/hr IV .[id number] [facility] Stop: 11/26/18 15:21 Last Admin: 09/30/18 08:19 Dose: 75 mls/hr Piperacillin Sod/Tazobactam (Sod 2.25 gm/ Sodium Chloride) 50 mls @ 100 mls/hr IV Q8HR [facility] Stop: 11/26/18 20:59 Last Admin: 09/30/18 12:01 Dose: 100 mls/hr Magnesium Hydroxide (Milk Of Magnesia) 30 ml PO Q72HR PRN PRN Reason: Constipation Stop: 11/26/18 15:36 Memantine (Namenda) 5 mg PO DAILY [facility] Stop: 11/27/18 08:59 Last Admin: 09/30/18 08:13 Dose: 5 mg Multivitamins/Vitamin C (Theragran) 1 tab PO DAILY [facility] Stop: 11/27/18 08:59 Last Admin: 09/30/18 08:13 Dose: 1 tab Potassium Chloride (Klor-Con) 20 meq PO DAILY [facility] Stop: 11/27/18 08:59 Last Admin: 09/30/18 08:13 Dose: 20 meq Sodium Phosphate (Fleet Enema) 135 ml RC DAILY PRN PRN Reason: Constipation Stop: 11/26/18 15:36 General: Alert, No acute distress HEENT: Atraumatic, Mucous membr. moist/pink Neck: Supple, JVD, +2 carotid pulse wo bruit Cardiovascular: Regular rate (flat), Normal S1, Normal S2 Lungs: Clear to auscultation, Normal air movement Abdomen: Bowel sounds, Soft, Other Extremities: Pulses (thyromegaly normal) Neurological: Sensation intact, Reflexes 2+ Skin: no Rash Psych/Mental Status: Other (depressed) Assessment/Plan - Assessment Assessment: Hypo-tension Hypothyroid Hyperlipidemia 6 daily Dementia Hypernatremia Hypercalcemia Hypokalemia - Plan Plan: Continue present management troponin level slightly elevated failure repeat level again
[2018-09-30 14:10] LABS: CA (PTHI) 11.3 mg/dL (8.7-10.3)
--- NOTE | 2018-09-30 14:47 | Infectious Disease Prog Note ---
Infectious Disease Subjective - Review of Systems Service Date: 09/30/18 Subjective: THere is no new change, no fever. Infectious Disease Objective - Results Result Diagrams: 09/30/18 04:20 09/30/18 04:20 Recent Labs: Laboratory Last Values WBC 13.1 Th/cmm (4.8-10.8) H 09/30/18 04:20 RBC 3.93 Mil/cmm (3.80-5.20) 09/30/18 04:20 Hgb 11.8 gm/dL (12-16) L 09/30/18 04:20 Hct 35.3 % (41.0-60) L 09/30/18 04:20 MCV 89.8 fl (81-100) 09/30/18 04:20 MCH 30.0 pg (27.0-31.0) 09/30/18 04:20 MCHC Differential 33.4 pg (28.0-36.0) 09/30/18 04:20 RDW 13.5 % (11.5-20.0) 09/30/18 04:20 Plt Count 162 Th/cmm (150-400) 09/30/18 04:20 MPV 9.6 fl 09/30/18 04:20 Add Manual Diff YES 09/28/18 05:40 Neutrophils % 84.5 % (40.0-80.0) H 09/30/18 04:20 Band Neutrophils % 0 % (0-10) 09/28/18 05:40 Lymphocytes % 10.4 % (20.0-50.0) L 09/30/18 04:20 Monocytes % 4.2 % (2.0-10.0) 09/30/18 04:20 Eosinophils % 0.9 % (0.0-5.0) 09/30/18 04:20 Basophils % 0.0 % (0.0-2.0) 09/30/18 04:20 Neutrophils (Manual) 89 % (40-80) H 09/28/18 05:40 Lymphocytes 6 % (20-50) L 09/28/18 05:40 Monocytes 5 % (2-10) 09/28/18 05:40 Eosinophils 0 % (0-5) 09/28/18 05:40 Basophils 0 % (0-3) 09/28/18 05:40 Platelet Estimate ADEQUATE (NORMAL) 09/28/18 05:40 Eos Smear Source URINE 09/28/18 17:45 Eos Smear Total Cells NONE SEEN (NONE SEEN) 09/28/18 17:45 PT 9.8 SECONDS (9.5-11.5) 09/27/18 10:50 INR 0.94 (0.5-1.4) 09/27/18 10:50 PTT (Actin FS) 18.1 SECONDS (26.0-38.0) L 09/27/18 10:50 Sodium 151 mEq/L (136-145) H 09/30/18 04:20 Potassium 2.8 mEq/L (3.5-5.1) L* 09/30/18 04:20 Chloride 119 mEq/L (98-107) H 09/30/18 04:20 Carbon Dioxide 22.8 mEq/L (21.0-31.0) 09/30/18 04:20 Anion Gap 12.0 (7.0-16.0) 09/30/18 04:20 BUN 13 mg/dL (7-25) 09/30/18 04:20 Creatinine 0.9 mg/dL (0.6-1.2) 09/30/18 04:20 Est GFR ( Amer) TNP 09/30/18 04:20 Est GFR (Non-Af Amer) TNP 09/30/18 04:20 BUN/Creatinine Ratio 14.4 09/30/18 04:20 Glucose 122 mg/dL (70-105) H 09/30/18 04:20 Whole Bld Lactic Acid 1.33 mmol/L (0.60-1.99) 09/29/18 04:30 Uric Acid 6.2 mg/dL (2.3-6.6) 09/29/18 04:30 Calcium 10.8 mg/dL (8.6-10.3) H 09/30/18 04:20 Magnesium 2.3 mg/dL (1.9-2.7) 09/29/18 04:30 Total Bilirubin 0.4 mg/dL (0.3-1.0) 09/29/18 04:30 AST 16 U/L (13-39) 09/29/18 04:30 ALT 14 U/L (7-52) 09/29/18 04:30 Alkaline Phosphatase 69 U/L (34-104) 09/29/18 04:30 Troponin I 0.05 ng/mL (0.01-0.05) 09/30/18 04:20 B-Natriuretic Peptide 14.5 pg/mL (5.0-100.0) 09/27/18 10:50 Total Protein 6.2 gm/dL (6.0-8.3) 09/29/18 04:30 Albumin 3.2 gm/dL (3.7-5.3) L 09/29/18 04:30 Globulin 3.0 gm/dL 09/29/18 04:30 Albumin/Globulin Ratio 1.1 (1.0-1.8) 09/29/18 04:30 Triglycerides 162 mg/dL (<150) H 09/28/18 05:40 Cholesterol 165 mg/dL (<200) 09/28/18 05:40 LDL Cholesterol Direct 79 mg/dL (75-193) 09/28/18 05:40 HDL Cholesterol 54 mg/dL (23-92) 09/28/18 05:40 TSH 0.66 uIU/ml (0.34-5.60) 09/28/18 05:40 PTH Interpretation 09/29/18 04:30 PTH Intact 223 pg/mL (15-65) H 09/29/18 04:30 Calcium (PTH Intact) 11.3 mg/dL (8.7-10.3) H 09/29/18 04:30 Urine Source CLEAN C 09/27/18 12:00 Urine Color YELLOW 09/27/18 12:00 Urine Clarity HAZY (CLEAR) 09/27/18 12:00 Urine pH 7.5 (4.6 - 8.0) 09/27/18 12:00 Ur Specific [place] 1.015 (1.005-1.030) 09/27/18 12:00 Urine Protein NEGATIVE mg/dL (NEGATIVE) 09/27/18 12:00 Urine Glucose (UA) NEGATIVE mg/dL (NEGATIVE) 09/27/18 12:00 Urine Ketones NEGATIVE mg/dL (NEGATIVE) 09/27/18 12:00 Urine Blood TRACE (NEGATIVE) 09/27/18 12:00 Urine Nitrate NEGATIVE (NEGATIVE) 09/27/18 12:00 Urine Bilirubin NEGATIVE (NEGATIVE) 09/27/18 12:00 Urine Urobilinogen 0.2 E.U./dL (0.2 - 1.0) 09/27/18 12:00 Ur Leukocyte Esterase NEGATIVE (NEGATIVE) 09/27/18 12:00 Urine RBC 2-5 /hpf (0-5) 09/27/18 12:00 Urine WBC 0-2 /hpf (0-5) 09/27/18 12:00 Ur Epithelial Cells NONE SEEN /lpf (FEW) 09/27/18 12:00 Amorphous Sediment MODERATE PHOSPHATES (NONE SEEN) 09/27/18 12:00 Urine Bacteria FEW /hpf (NONE SEEN) 09/27/18 12:00 Ur Random Sodium 80 mmol/L 09/28/18 17:45 Urine Creatinine 23.0 mg/dl (28.0-217.0) L 09/28/18 17:45 Microalb/Creat Ratio 103.0 mg/g creat (0.0-30.0) H 09/28/18 17:45 - Physical Exam Vitals and I&O: Vital Signs Temp 97.7 F 09/30/18 12:00 Pulse 75 09/30/18 12:00 Resp 18 09/30/18 12:00 BP 139/77 09/30/18 12:00 Pulse Ox 97 09/30/18 12:00 Intake & Output 09/29/18 09/30/18 09/30/18 18:59 06:59 18:59 Intake Total 1175 100 Output Total 1 Balance 1174 100 Weight (lbs) 43.545 kg 40.993 kg Intake: Intake, IV Amount 1050 100 D5-0.45NS 1,000 ml @ 75 1000 mls/hr IV .[id number] [facility] Rx #:[id number] Piperacillin Sodium/ 50 100 Tazobact 2.25 gm In Sodium Chloride 0.9% 50 ml @ 100 mls/hr IV Q8HR [facility] Rx#:[id number] Oral 125 Output: Stool 1 Other: # Voids 2 Stool Characteristics Soft Soft Brown Brown Weight Source Bedscale Bedscale Active Medications: Current Medications Aspirin (Aspirin Chewable) 81 mg PO DAILY [facility] Stop: 11/27/18 08:59 Last Admin: 09/30/18 08:13 Dose: 81 mg Atorvastatin Calcium (Lipitor) [address] [facility]; Protocol Stop: 11/27/18 20:59 Last Admin: 09/29/18 21:30 Dose: 20 mg Bisacodyl (Dulcolax 10 Mg Supp) 10 mg RC DAILY PRN PRN Reason: Constipation Stop: 11/26/18 15:36 Cholecalciferol (Vitamin D3) 1,000 iu PO DAILY JONH Stop: 11/27/18 08:59 Last Admin: 09/30/18 08:12 Dose: 1,000 iu Cinacalcet (Sensipar) 60 mg PO DAILY JONH Stop: 11/27/18 08:59 Last Admin: 09/30/18 08:12 Dose: 60 mg Donepezil HCl (Aricept) 5 mg PO HS JONH Stop: 11/26/18 20:59 Last Admin: 09/29/18 21:30 Dose: 5 mg Folic Acid (Folate) 1 mg PO DAILY JONH Stop: 11/27/18 08:59 Last Admin: 09/30/18 08:13 Dose: 1 mg Dextrose/Sodium Chloride (D5-0.45ns) 1,000 mls @ 75 mls/hr IV .[id number] JONH Stop: 11/26/18 15:21 Last Admin: 09/30/18 08:19 Dose: 75 mls/hr Piperacillin Sod/Tazobactam (Sod 2.25 gm/ Sodium Chloride) 50 mls @ 100 mls/hr IV Q8HR JONH Stop: 11/26/18 20:59 Last Admin: 09/30/18 12:01 Dose: 100 mls/hr Magnesium Hydroxide (Milk Of Magnesia) 30 ml PO Q72HR PRN PRN Reason: Constipation Stop: 11/26/18 15:36 Memantine (Namenda) 5 mg PO DAILY JONH Stop: 11/27/18 08:59 Last Admin: 09/30/18 08:13 Dose: 5 mg Multivitamins/Vitamin C (Theragran) 1 tab PO DAILY JONH Stop: 11/27/18 08:59 Last Admin: 09/30/18 08:13 Dose: 1 tab Potassium Chloride (Klor-Con) 20 meq PO DAILY JONH Stop: 11/27/18 08:59 Last Admin: 09/30/18 08:13 Dose: 20 meq Sodium Phosphate (Fleet Enema) 135 ml RC DAILY PRN PRN Reason: Constipation Stop: 08/14/19 15:36 General: no acute distress, well developed, well nourished HEENT: atraumatic, normocephalic, PERRLA, EOMI Neck: supple, no thyromegaly, no rigid, no tracheostomy Cardiovascular: S1S2, regular, no systolic murmur Lungs: clear to auscultation bilaterally, wheeze Abdomen: soft, no tender, no hepatomegaly, no splenomegaly Extremities: no cyanosis, no clubbing, no edema Neurological: awake, alert Infectious Disease Assmt/Plan - Assessment Assessment: 1. Leukocytosis, most likely sepsis. 2. Hyponatremia. 3. Azotemia secondary to dehydration. 4. Hypokalemia. - Plan Plan: CPM. ABX: Nesha.
--- NOTE | 2018-09-30 18:31 | General Progress Note ---
Subjective - Review of Systems Service Date: 09/30/18 Subjective: awake, comfortable Objective - Results Result Diagrams: 09/30/18 04:20 09/30/18 04:20 Recent Labs: Laboratory Last Values WBC 13.1 Th/cmm (4.8-10.8) H 09/30/18 04:20 RBC 3.93 Mil/cmm (3.80-5.20) 09/30/18 04:20 Hgb 11.8 gm/dL (12-16) L 09/30/18 04:20 Hct 35.3 % (41.0-60) L 09/30/18 04:20 MCV 89.8 fl (81-100) 09/30/18 04:20 MCH 30.0 pg (27.0-31.0) 09/30/18 04:20 MCHC Differential 33.4 pg (28.0-36.0) 09/30/18 04:20 RDW 13.5 % (11.5-20.0) 09/30/18 04:20 Plt Count 162 Th/cmm (150-400) 09/30/18 04:20 MPV 9.6 fl 09/30/18 04:20 Add Manual Diff YES 09/28/18 05:40 Neutrophils % 84.5 % (40.0-80.0) H 09/30/18 04:20 Band Neutrophils % 0 % (0-10) 09/28/18 05:40 Lymphocytes % 10.4 % (20.0-50.0) L 09/30/18 04:20 Monocytes % 4.2 % (2.0-10.0) 09/30/18 04:20 Eosinophils % 0.9 % (0.0-5.0) 09/30/18 04:20 Basophils % 0.0 % (0.0-2.0) 09/30/18 04:20 Neutrophils (Manual) 89 % (40-80) H 09/28/18 05:40 Lymphocytes 6 % (20-50) L 09/28/18 05:40 Monocytes 5 % (2-10) 09/28/18 05:40 Eosinophils 0 % (0-5) 09/28/18 05:40 Basophils 0 % (0-3) 09/28/18 05:40 Platelet Estimate ADEQUATE (NORMAL) 09/28/18 05:40 Eos Smear Source URINE 09/28/18 17:45 Eos Smear Total Cells NONE SEEN (NONE SEEN) 09/28/18 17:45 PT 9.8 SECONDS (9.5-11.5) 09/27/18 10:50 INR 0.94 (0.5-1.4) 09/27/18 10:50 PTT (Actin FS) 18.1 SECONDS (26.0-38.0) L 09/27/18 10:50 Sodium 151 mEq/L (136-145) H 09/30/18 04:20 Potassium 2.8 mEq/L (3.5-5.1) L* 09/30/18 04:20 Chloride 119 mEq/L (98-107) H 09/30/18 04:20 Carbon Dioxide 22.8 mEq/L (21.0-31.0) 09/30/18 04:20 Anion Gap 12.0 (7.0-16.0) 09/30/18 04:20 BUN 13 mg/dL (7-25) 09/30/18 04:20 Creatinine 0.9 mg/dL (0.6-1.2) 09/30/18 04:20 Est GFR ( Amer) TNP 09/30/18 04:20 Est GFR (Non-Af Amer) TNP 09/30/18 04:20 BUN/Creatinine Ratio 14.4 09/30/18 04:20 Glucose 122 mg/dL (70-105) H 09/30/18 04:20 Whole Bld Lactic Acid 1.33 mmol/L (0.60-1.99) 09/29/18 04:30 Uric Acid 6.2 mg/dL (2.3-6.6) 09/29/18 04:30 Calcium 10.8 mg/dL (8.6-10.3) H 09/30/18 04:20 Magnesium 2.3 mg/dL (1.9-2.7) 09/29/18 04:30 Total Bilirubin 0.4 mg/dL (0.3-1.0) 09/29/18 04:30 AST 16 U/L (13-39) 09/29/18 04:30 ALT 14 U/L (7-52) 09/29/18 04:30 Alkaline Phosphatase 69 U/L (34-104) 09/29/18 04:30 Troponin I 0.05 ng/mL (0.01-0.05) 09/30/18 04:20 B-Natriuretic Peptide 14.5 pg/mL (5.0-100.0) 09/27/18 10:50 Total Protein 6.2 gm/dL (6.0-8.3) 09/29/18 04:30 Albumin 3.2 gm/dL (3.7-5.3) L 09/29/18 04:30 Globulin 3.0 gm/dL 09/29/18 04:30 Albumin/Globulin Ratio 1.1 (1.0-1.8) 09/29/18 04:30 Triglycerides 162 mg/dL (<150) H 09/28/18 05:40 Cholesterol 165 mg/dL (<200) 09/28/18 05:40 LDL Cholesterol Direct 79 mg/dL (75-193) 09/28/18 05:40 HDL Cholesterol 54 mg/dL (23-92) 09/28/18 05:40 TSH 0.66 uIU/ml (0.34-5.60) 09/28/18 05:40 PTH Interpretation 09/29/18 04:30 PTH Intact 223 pg/mL (15-65) H 09/29/18 04:30 Calcium (PTH Intact) 11.3 mg/dL (8.7-10.3) H 09/29/18 04:30 Urine Source CLEAN C 09/27/18 12:00 Urine Color YELLOW 09/27/18 12:00 Urine Clarity HAZY (CLEAR) 09/27/18 12:00 Urine pH 7.5 (4.6 - 8.0) 09/27/18 12:00 Ur Specific [place] 1.015 (1.005-1.030) 09/27/18 12:00 Urine Protein NEGATIVE mg/dL (NEGATIVE) 09/27/18 12:00 Urine Glucose (UA) NEGATIVE mg/dL (NEGATIVE) 09/27/18 12:00 Urine Ketones NEGATIVE mg/dL (NEGATIVE) 09/27/18 12:00 Urine Blood TRACE (NEGATIVE) 09/27/18 12:00 Urine Nitrate NEGATIVE (NEGATIVE) 09/27/18 12:00 Urine Bilirubin NEGATIVE (NEGATIVE) 09/27/18 12:00 Urine Urobilinogen 0.2 E.U./dL (0.2 - 1.0) 09/27/18 12:00 Ur Leukocyte Esterase NEGATIVE (NEGATIVE) 09/27/18 12:00 Urine RBC 2-5 /hpf (0-5) 09/27/18 12:00 Urine WBC 0-2 /hpf (0-5) 09/27/18 12:00 Ur Epithelial Cells NONE SEEN /lpf (FEW) 09/27/18 12:00 Amorphous Sediment MODERATE PHOSPHATES (NONE SEEN) 09/27/18 12:00 Urine Bacteria FEW /hpf (NONE SEEN) 09/27/18 12:00 Ur Random Sodium 80 mmol/L 09/28/18 17:45 Urine Creatinine 23.0 mg/dl (28.0-217.0) L 09/28/18 17:45 Microalb/Creat Ratio 103.0 mg/g creat (0.0-30.0) H 09/28/18 17:45 RPR NONREACTIVE (NONREACTIVE) 09/27/18 10:50 - Physical Exam Vitals and I&O: Vital Signs Temp 97.7 F 09/30/18 12:00 Pulse 75 09/30/18 12:00 Resp 18 09/30/18 15:30 BP 139/77 09/30/18 12:00 Pulse Ox 97 09/30/18 12:00 Intake & Output 09/29/18 09/30/18 09/30/18 18:59 06:59 18:59 Intake Total 1175 100 Output Total 1 Balance 1174 100 Weight (lbs) 43.545 kg 40.993 kg Intake: Intake, IV Amount 1050 100 D5-0.45NS 1,000 ml @ 75 1000 mls/hr IV .[id number] [facility] Rx #:[id number] Piperacillin Sodium/ 50 100 Tazobact 2.25 gm In Sodium Chloride 0.9% 50 ml @ 100 mls/hr IV Q8HR [facility] Rx#:[id number] Oral 125 Output: Stool 1 Other: # Voids 2 Stool Characteristics Soft Soft Brown Brown Weight Source Bedscale Bedscale Active Medications: Current Medications Aspirin (Aspirin Chewable) 81 mg PO DAILY JONH Stop: 11/27/18 08:59 Last Admin: 09/30/18 08:13 Dose: 81 mg Atorvastatin Calcium (Lipitor) 20 mg PO HS JONH; Protocol Stop: 11/27/18 20:59 Last Admin: 09/29/18 21:30 Dose: 20 mg Bisacodyl (Dulcolax 10 Mg Supp) 10 mg RC DAILY PRN PRN Reason: Constipation Stop: 11/26/18 15:36 Cholecalciferol (Vitamin D3) 1,000 iu PO DAILY JONH Stop: 11/27/18 08:59 Last Admin: 09/30/18 08:12 Dose: 1,000 iu Cinacalcet (Sensipar) 60 mg PO DAILY JONH Stop: 11/27/18 08:59 Last Admin: 09/30/18 08:12 Dose: 60 mg Donepezil HCl (Aricept) 5 mg PO HS JONH Stop: 11/26/18 20:59 Last Admin: 09/29/18 21:30 Dose: 5 mg Folic Acid (Folate) 1 mg PO DAILY JONH Stop: 11/27/18 08:59 Last Admin: 09/30/18 08:13 Dose: 1 mg Piperacillin Sod/Tazobactam (Sod 2.25 gm/ Sodium Chloride) 50 mls @ 100 mls/hr IV Q8HR JONH Stop: 11/26/18 20:59 Last Admin: 09/30/18 12:01 Dose: 100 mls/hr Magnesium Hydroxide (Milk Of Magnesia) 30 ml PO Q72HR PRN PRN Reason: Constipation Stop: 11/26/18 15:36 Memantine (Namenda) 5 mg PO DAILY JONH Stop: 11/27/18 08:59 Last Admin: 09/30/18 08:13 Dose: 5 mg Multivitamins/Vitamin C (Theragran) 1 tab PO DAILY JONH Stop: 11/27/18 08:59 Last Admin: 09/30/18 08:13 Dose: 1 tab Potassium Chloride (Klor-Con) 20 meq PO DAILY JONH Stop: 11/27/18 08:59 Last Admin: 09/30/18 08:13 Dose: 20 meq Sodium Phosphate (Fleet Enema) 135 ml RC DAILY PRN PRN Reason: Constipation Stop: 11/26/18 15:36 General: Alert, No acute distress HEENT: Atraumatic, Mucous membr. moist/pink Neck: Supple, JVD, +2 carotid pulse wo bruit Cardiovascular: Regular rate (flat), Normal S1, Normal S2 Lungs: Clear to auscultation, Normal air movement Abdomen: Bowel sounds, Soft, Other Extremities: Pulses (thyromegaly normal) Neurological: Sensation intact, Reflexes 2+ Skin: no Rash Psych/Mental Status: Other (depressed) Assessment/Plan - Assessment Assessment: SATNAM ALOC Met/Toxic Enceph Sepsis Dehydration Alzh Dementia Hypernatremia Primary Hyperparathyroid - Plan Plan: Lab - Result Diagrams 09/29/18 04:30 09/29/18 04:30 Current Medications Aspirin (Aspirin Chewable) 81 mg PO DAILY JONH Stop: 11/27/18 08:59 Last Admin: 09/29/18 08:52 Dose: 81 mg Atorvastatin Calcium (Lipitor) 20 mg PO HS JONH; Protocol Stop: 11/27/18 20:59 Last Admin: 09/28/18 20:15 Dose: 20 mg Bisacodyl (Dulcolax 10 Mg Supp) 10 mg RC DAILY PRN PRN Reason: Constipation Stop: 11/26/18 15:36 Cholecalciferol (Vitamin D3) 1,000 iu PO DAILY JONH Stop: 11/27/18 08:59 Last Admin: 09/29/18 08:51 Dose: 1,000 iu Cinacalcet (Sensipar) 60 mg PO DAILY JONH Stop: 11/27/18 08:59 Last Admin: 09/29/18 08:52 Dose: 60 mg Donepezil HCl (Aricept) 5 mg PO HS JONH Stop: 11/26/18 20:59 Last Admin: 09/28/18 20:15 Dose: 5 mg Folic Acid (Folate) 1 mg PO DAILY JONH Stop: 11/27/18 08:59 Last Admin: 09/29/18 08:52 Dose: 1 mg Dextrose/Sodium Chloride (D5-0.45ns) 1,000 mls @ 75 mls/hr IV .[id number] JONH Stop: 11/26/18 15:21 Last Admin: 09/29/18 03:59 Dose: 75 mls/hr Piperacillin Sod/Tazobactam (Sod 2.25 gm/ Sodium Chloride) 50 mls @ 100 mls/hr IV Q8HR JONH Stop: 11/26/18 20:59 Last Admin: 09/29/18 12:41 Dose: 100 mls/hr Magnesium Hydroxide (Milk Of Magnesia) 30 ml PO Q72HR PRN PRN Reason: Constipation Stop: 11/26/18 15:36 Memantine (Namenda) 5 mg PO DAILY JONH Stop: 11/27/18 08:59 Last Admin: 09/29/18 08:52 Dose: 5 mg Multivitamins/Vitamin C (Theragran) 1 tab PO DAILY JONH Stop: 11/27/18 08:59 Last Admin: 09/29/18 08:52 Dose: 1 tab Potassium Chloride (Klor-Con) 20 meq PO DAILY JONH Stop: 11/27/18 08:59 Last Admin: 09/29/18 08:52 Dose: 20 meq Sodium Phosphate (Fleet Enema) 135 ml RC DAILY PRN PRN Reason: Constipation Stop: 11/26/18 15:36 Lab - Result Diagrams 09/30/18 04:20 09/30/18 04:20 Na down to 151 agree w/ K replacement renal US unremarkable continue IVF FE Na 2.47% suggestive of intrinsic renal involvement f/u electrolytes, cbc
[2018-09-30] MEDS: Atorvastatin Calcium 10 MG TAB PO SCH (20:30)
[2018-09-30] MEDS ORDERED: Dextrose 5% 1,000 ML IV SCH (20:30)
[2018-10-01 06:19] LABS: ANION GAP 11.8 (7.0-16.0); BUN - UREA NITROGEN 9 mg/dL (7-25); CALCIUM SERUM 10.6 mg/dL (8.6-10.3); CARBON DIOXIDE 21.6 mEq/L (21.0-31.0); CHLORIDE 115 mEq/L (98-107); CREATININE - SERUM 0.8 mg/dL (0.6-1.2); GLUCOSE 104 mg/dL (70-105); POTASSIUM SERUM 3.4 mEq/L (3.5-5.1); SODIUM SERUM 145 mEq/L (136-145)
[2018-10-01] MEDS: Multivitamin Tab PO SCH (09:05)
[2018-10-01] MEDS: Potassium Chloride 20 mEq ER Tab PO SCH (09:05)
[2018-10-01] MEDS: Aspirin 81mg Chewable Tab PO SCH (09:05)
[2018-10-01 10:09] LABS: HEMATOCRIT 36.9 % (41.0-60); HEMOGLOBIN 11.9 gm/dL (12-16); MEAN CELL VOLUME 92.5 fl (81-100); MEAN CORPUSCULAR HEMOGLOBIN 29.8 pg (27.0-31.0); MEAN CORPUSCULAR HGB CONC 32.2 pg (28.0-36.0); RED BLOOD COUNT 3.99 Mil/cmm (3.80-5.20); WHITE BLOOD COUNT 10.6 Th/cmm (4.8-10.8)
[2018-10-01 10:10] LABS: % BASOPHILS 0.2 % (0.0-2.0); % EOSINOPHILS 0.8 % (0.0-5.0); % MONOCYTES 5.6 % (2.0-10.0); % NEUTROPHILS 81.4 % (40.0-80.0); EOSINOPHILE ABSOLUTE 0.1 Th/cmm (0.1-0.4); LYMPHOCYTE ABSOLUTE 1.3 Th/cmm (1.5-3.0); MONOCYTE ABSOLUTE 0.6 Th/cmm (0.3-1.0); NEUTROPHILE ABSOLUTE 8.6 Th/cmm (1.8-8.0); PLATELET COUNT 152 Th/cmm (150-400); RED CELL DISTRIBUTION WIDTH 14.5 % (11.5-20.0)
--- NOTE | 2018-10-01 12:56 | General Progress Note ---
Subjective - Review of Systems Service Date: 10/01/18 Subjective: sleeping, comfortable Objective - Results Result Diagrams: 10/01/18 05:10 10/01/18 05:10 Recent Labs: Laboratory Last Values WBC 10.6 Th/cmm (4.8-10.8) 10/01/18 05:10 RBC 3.99 Mil/cmm (3.80-5.20) 10/01/18 05:10 Hgb 11.9 gm/dL (12-16) L 10/01/18 05:10 Hct 36.9 % (41.0-60) L 10/01/18 05:10 MCV 92.5 fl (81-100) 10/01/18 05:10 MCH 29.8 pg (27.0-31.0) 10/01/18 05:10 MCHC Differential 32.2 pg (28.0-36.0) 10/01/18 05:10 RDW 14.5 % (11.5-20.0) 10/01/18 05:10 Plt Count 152 Th/cmm (150-400) 10/01/18 05:10 MPV 10.4 fl 10/01/18 05:10 Add Manual Diff YES 09/28/18 05:40 Neutrophils % 81.4 % (40.0-80.0) H 10/01/18 05:10 Band Neutrophils % 0 % (0-10) 09/28/18 05:40 Lymphocytes % 12.0 % (20.0-50.0) L 10/01/18 05:10 Monocytes % 5.6 % (2.0-10.0) 10/01/18 05:10 Eosinophils % 0.8 % (0.0-5.0) 10/01/18 05:10 Basophils % 0.2 % (0.0-2.0) 10/01/18 05:10 Neutrophils (Manual) 89 % (40-80) H 09/28/18 05:40 Lymphocytes 6 % (20-50) L 09/28/18 05:40 Monocytes 5 % (2-10) 09/28/18 05:40 Eosinophils 0 % (0-5) 09/28/18 05:40 Basophils 0 % (0-3) 09/28/18 05:40 Platelet Estimate ADEQUATE (NORMAL) 09/28/18 05:40 Eos Smear Source URINE 09/28/18 17:45 Eos Smear Total Cells NONE SEEN (NONE SEEN) 09/28/18 17:45 PT 9.8 SECONDS (9.5-11.5) 09/27/18 10:50 INR 0.94 (0.5-1.4) 09/27/18 10:50 PTT (Actin FS) 18.1 SECONDS (26.0-38.0) L 09/27/18 10:50 Sodium 145 mEq/L (136-145) 10/01/18 05:10 Potassium 3.4 mEq/L (3.5-5.1) L 10/01/18 05:10 Chloride 115 mEq/L (98-107) H 10/01/18 05:10 Carbon Dioxide 21.6 mEq/L (21.0-31.0) 10/01/18 05:10 Anion Gap 11.8 (7.0-16.0) 10/01/18 05:10 BUN 9 mg/dL (7-25) 10/01/18 05:10 Creatinine 0.8 mg/dL (0.6-1.2) 10/01/18 05:10 Est GFR ( Amer) TNP 10/01/18 05:10 Est GFR (Non-Af Amer) TNP 10/01/18 05:10 BUN/Creatinine Ratio 11.3 10/01/18 05:10 Glucose 104 mg/dL (70-105) 10/01/18 05:10 Whole Bld Lactic Acid 1.33 mmol/L (0.60-1.99) 09/29/18 04:30 Uric Acid 6.2 mg/dL (2.3-6.6) 09/29/18 04:30 Calcium 10.6 mg/dL (8.6-10.3) H 10/01/18 05:10 Magnesium 2.3 mg/dL (1.9-2.7) 09/29/18 04:30 Total Bilirubin 0.4 mg/dL (0.3-1.0) 09/29/18 04:30 AST 16 U/L (13-39) 09/29/18 04:30 ALT 14 U/L (7-52) 09/29/18 04:30 Alkaline Phosphatase 69 U/L (34-104) 09/29/18 04:30 Troponin I 0.05 ng/mL (0.01-0.05) 09/30/18 04:20 B-Natriuretic Peptide 14.5 pg/mL (5.0-100.0) 09/27/18 10:50 Total Protein 6.2 gm/dL (6.0-8.3) 09/29/18 04:30 Albumin 3.2 gm/dL (3.7-5.3) L 09/29/18 04:30 Globulin 3.0 gm/dL 09/29/18 04:30 Albumin/Globulin Ratio 1.1 (1.0-1.8) 09/29/18 04:30 Triglycerides 162 mg/dL (<150) H 09/28/18 05:40 Cholesterol 165 mg/dL (<200) 09/28/18 05:40 LDL Cholesterol Direct 79 mg/dL (75-193) 09/28/18 05:40 HDL Cholesterol 54 mg/dL (23-92) 09/28/18 05:40 TSH 0.66 uIU/ml (0.34-5.60) 09/28/18 05:40 PTH Interpretation 09/29/18 04:30 PTH Intact 223 pg/mL (15-65) H 09/29/18 04:30 Calcium (PTH Intact) 11.3 mg/dL (8.7-10.3) H 09/29/18 04:30 Urine Source CLEAN C 09/27/18 12:00 Urine Color YELLOW 09/27/18 12:00 Urine Clarity HAZY (CLEAR) 09/27/18 12:00 Urine pH 7.5 (4.6 - 8.0) 09/27/18 12:00 Ur Specific [place] 1.015 (1.005-1.030) 09/27/18 12:00 Urine Protein NEGATIVE mg/dL (NEGATIVE) 09/27/18 12:00 Urine Glucose (UA) NEGATIVE mg/dL (NEGATIVE) 09/27/18 12:00 Urine Ketones NEGATIVE mg/dL (NEGATIVE) 09/27/18 12:00 Urine Blood TRACE (NEGATIVE) 09/27/18 12:00 Urine Nitrate NEGATIVE (NEGATIVE) 09/27/18 12:00 Urine Bilirubin NEGATIVE (NEGATIVE) 09/27/18 12:00 Urine Urobilinogen 0.2 E.U./dL (0.2 - 1.0) 09/27/18 12:00 Ur Leukocyte Esterase NEGATIVE (NEGATIVE) 09/27/18 12:00 Urine RBC 2-5 /hpf (0-5) 09/27/18 12:00 Urine WBC 0-2 /hpf (0-5) 09/27/18 12:00 Ur Epithelial Cells NONE SEEN /lpf (FEW) 09/27/18 12:00 Amorphous Sediment MODERATE PHOSPHATES (NONE SEEN) 09/27/18 12:00 Urine Bacteria FEW /hpf (NONE SEEN) 09/27/18 12:00 Urine Osmolality 315 mOsmol/kg 09/28/18 17:45 Ur Random Sodium 80 mmol/L 09/28/18 17:45 Urine Creatinine 23.0 mg/dl (28.0-217.0) L 09/28/18 17:45 Microalb/Creat Ratio 103.0 mg/g creat (0.0-30.0) H 09/28/18 17:45 RPR NONREACTIVE (NONREACTIVE) 09/27/18 10:50 - Physical Exam Vitals and I&O: Vital Signs Temp 96.7 F 10/01/18 12:04 Pulse 71 10/01/18 12:04 Resp 18 10/01/18 12:25 BP 109/60 10/01/18 12:04 Pulse Ox 97 10/01/18 12:04 Intake & Output 09/30/18 10/01/18 10/01/18 18:59 06:59 18:59 Intake Total 650 100 Balance 650 100 Weight (lbs) 40.823 kg 40.823 kg Intake: Intake, IV Amount 50 100 Piperacillin Sodium/ 50 100 Tazobact 2.25 gm In Sodium Chloride 0.9% 50 ml @ 100 mls/hr IV Q8HR [facility] Rx#:[id number] Oral 600 Other: # Voids 2 2 # Bowel Movements 1 Weight Source Bedscale Bedscale Active Medications: Current Medications Aspirin (Aspirin Chewable) 81 mg PO DAILY JONH Stop: 11/27/18 08:59 Last Admin: 10/01/18 09:05 Dose: 81 mg Atorvastatin Calcium (Lipitor) 20 mg PO HS JONH; Protocol Stop: 11/27/18 20:59 Last Admin: 09/30/18 20:30 Dose: 20 mg Bisacodyl (Dulcolax 10 Mg Supp) 10 mg RC DAILY PRN PRN Reason: Constipation Stop: 11/26/18 15:36 Cholecalciferol (Vitamin D3) 1,000 iu PO DAILY JONH Stop: 11/27/18 08:59 Last Admin: 10/01/18 09:05 Dose: 1,000 iu Cinacalcet (Sensipar) 60 mg PO DAILY JONH Stop: 11/27/18 08:59 Last Admin: 10/01/18 09:05 Dose: 60 mg Donepezil HCl (Aricept) 5 mg PO HS JONH Stop: 11/26/18 20:59 Last Admin: 09/30/18 20:30 Dose: 5 mg Folic Acid (Folate) 1 mg PO DAILY JONH Stop: 11/27/18 08:59 Last Admin: 10/01/18 09:05 Dose: 1 mg Piperacillin Sod/Tazobactam (Sod 2.25 gm/ Sodium Chloride) 50 mls @ 100 mls/hr IV Q8HR JONH Stop: 11/26/18 20:59 Last Admin: 10/01/18 12:33 Dose: 100 mls/hr Dextrose (D5w) 1,000 mls @ 75 mls/hr IV .[id number] JONH Stop: 11/29/18 20:29 Last Admin: 09/30/18 20:29 Dose: 75 mls/hr Magnesium Hydroxide (Milk Of Magnesia) 30 ml PO Q72HR PRN PRN Reason: Constipation Stop: 11/26/18 15:36 Memantine (Namenda) 5 mg PO DAILY JONH Stop: 11/27/18 08:59 Last Admin: 10/01/18 09:05 Dose: 5 mg Multivitamins/Vitamin C (Theragran) 1 tab PO DAILY JONH Stop: 11/27/18 08:59 Last Admin: 10/01/18 09:05 Dose: 1 tab Potassium Chloride (Klor-Con) 20 meq PO DAILY JONH Stop: 11/27/18 08:59 Last Admin: 10/01/18 09:05 Dose: 20 meq Sodium Phosphate (Fleet Enema) 135 ml RC DAILY PRN PRN Reason: Constipation Stop: 11/26/18 15:36 General: Alert, No acute distress HEENT: Atraumatic, Mucous membr. moist/pink Neck: Supple, JVD, +2 carotid pulse wo bruit Cardiovascular: Regular rate (flat), Normal S1, Normal S2 Lungs: Clear to auscultation, Normal air movement Abdomen: Bowel sounds, Soft, Other Extremities: Pulses (thyromegaly normal) Neurological: Sensation intact, Reflexes 2+ Skin: no Rash Psych/Mental Status: Other (depressed) Assessment/Plan - Assessment Assessment: SATNAM ALOC Met/Toxic Enceph Sepsis Dehydration Alzh Dementia Hypernatremia Primary Hyperparathyroid - Plan Plan: Lab - Result Diagrams 09/29/18 04:30 09/29/18 04:30 Current Medications Aspirin (Aspirin Chewable) 81 mg PO DAILY JONH Stop: 11/27/18 08:59 Last Admin: 09/29/18 08:52 Dose: 81 mg Atorvastatin Calcium (Lipitor) 20 mg PO HS JONH; Protocol Stop: 11/27/18 20:59 Last Admin: 09/28/18 20:15 Dose: 20 mg Bisacodyl (Dulcolax 10 Mg Supp) 10 mg RC DAILY PRN PRN Reason: Constipation Stop: 11/26/18 15:36 Cholecalciferol (Vitamin D3) 1,000 iu PO DAILY JONH Stop: 11/27/18 08:59 Last Admin: 09/29/18 08:51 Dose: 1,000 iu Cinacalcet (Sensipar) 60 mg PO DAILY JONH Stop: 11/27/18 08:59 Last Admin: 09/29/18 08:52 Dose: 60 mg Donepezil HCl (Aricept) 5 mg PO HS JONH Stop: 11/26/18 20:59 Last Admin: 09/28/18 20:15 Dose: 5 mg Folic Acid (Folate) 1 mg PO DAILY JONH Stop: 11/27/18 08:59 Last Admin: 09/29/18 08:52 Dose: 1 mg Dextrose/Sodium Chloride (D5-0.45ns) 1,000 mls @ 75 mls/hr IV .[id number] JONH Stop: 11/26/18 15:21 Last Admin: 09/29/18 03:59 Dose: 75 mls/hr Piperacillin Sod/Tazobactam (Sod 2.25 gm/ Sodium Chloride) 50 mls @ 100 mls/hr IV Q8HR JONH Stop: 11/26/18 20:59 Last Admin: 09/29/18 12:41 Dose: 100 mls/hr Magnesium Hydroxide (Milk Of Magnesia) 30 ml PO Q72HR PRN PRN Reason: Constipation Stop: 11/26/18 15:36 Memantine (Namenda) 5 mg PO DAILY JONH Stop: 11/27/18 08:59 Last Admin: 09/29/18 08:52 Dose: 5 mg Multivitamins/Vitamin C (Theragran) 1 tab PO DAILY JONH Stop: 11/27/18 08:59 Last Admin: 09/29/18 08:52 Dose: 1 tab Potassium Chloride (Klor-Con) 20 meq PO DAILY JONH Stop: 11/27/18 08:59 Last Admin: 09/29/18 08:52 Dose: 20 meq Sodium Phosphate (Fleet Enema) 135 ml RC DAILY PRN PRN Reason: Constipation Stop: 11/26/18 15:36 Lab - Result Diagrams 10/01/18 05:10 10/01/18 05:10 Na down to 145 agree w/ K replacement renal US unremarkable continue IVF FE Na 2.47% suggestive of intrinsic renal involvement f/u electrolytes
--- NOTE | 2018-10-01 13:47 | General Progress Note ---
Subjective - Review of Systems Service Date: 10/01/18 Subjective: Patient has dementia patient is a poor historian Objective - Results Result Diagrams: 10/01/18 05:10 10/01/18 05:10 Recent Labs: Laboratory Last Values WBC 10.6 Th/cmm (4.8-10.8) 10/01/18 05:10 RBC 3.99 Mil/cmm (3.80-5.20) 10/01/18 05:10 Hgb 11.9 gm/dL (12-16) L 10/01/18 05:10 Hct 36.9 % (41.0-60) L 10/01/18 05:10 MCV 92.5 fl (81-100) 10/01/18 05:10 MCH 29.8 pg (27.0-31.0) 10/01/18 05:10 MCHC Differential 32.2 pg (28.0-36.0) 10/01/18 05:10 RDW 14.5 % (11.5-20.0) 10/01/18 05:10 Plt Count 152 Th/cmm (150-400) 10/01/18 05:10 MPV 10.4 fl 10/01/18 05:10 Add Manual Diff YES 09/28/18 05:40 Neutrophils % 81.4 % (40.0-80.0) H 10/01/18 05:10 Band Neutrophils % 0 % (0-10) 09/28/18 05:40 Lymphocytes % 12.0 % (20.0-50.0) L 10/01/18 05:10 Monocytes % 5.6 % (2.0-10.0) 10/01/18 05:10 Eosinophils % 0.8 % (0.0-5.0) 10/01/18 05:10 Basophils % 0.2 % (0.0-2.0) 10/01/18 05:10 Neutrophils (Manual) 89 % (40-80) H 09/28/18 05:40 Lymphocytes 6 % (20-50) L 09/28/18 05:40 Monocytes 5 % (2-10) 09/28/18 05:40 Eosinophils 0 % (0-5) 09/28/18 05:40 Basophils 0 % (0-3) 09/28/18 05:40 Platelet Estimate ADEQUATE (NORMAL) 09/28/18 05:40 Eos Smear Source URINE 09/28/18 17:45 Eos Smear Total Cells NONE SEEN (NONE SEEN) 09/28/18 17:45 PT 9.8 SECONDS (9.5-11.5) 09/27/18 10:50 INR 0.94 (0.5-1.4) 09/27/18 10:50 PTT (Actin FS) 18.1 SECONDS (26.0-38.0) L 09/27/18 10:50 Sodium 145 mEq/L (136-145) 10/01/18 05:10 Potassium 3.4 mEq/L (3.5-5.1) L 10/01/18 05:10 Chloride 115 mEq/L (98-107) H 10/01/18 05:10 Carbon Dioxide 21.6 mEq/L (21.0-31.0) 10/01/18 05:10 Anion Gap 11.8 (7.0-16.0) 10/01/18 05:10 BUN 9 mg/dL (7-25) 10/01/18 05:10 Creatinine 0.8 mg/dL (0.6-1.2) 10/01/18 05:10 Est GFR ( Amer) TNP 10/01/18 05:10 Est GFR (Non-Af Amer) TNP 10/01/18 05:10 BUN/Creatinine Ratio 11.3 10/01/18 05:10 Glucose 104 mg/dL (70-105) 10/01/18 05:10 Whole Bld Lactic Acid 1.33 mmol/L (0.60-1.99) 09/29/18 04:30 Uric Acid 6.2 mg/dL (2.3-6.6) 09/29/18 04:30 Calcium 10.6 mg/dL (8.6-10.3) H 10/01/18 05:10 Magnesium 2.3 mg/dL (1.9-2.7) 09/29/18 04:30 Total Bilirubin 0.4 mg/dL (0.3-1.0) 09/29/18 04:30 AST 16 U/L (13-39) 09/29/18 04:30 ALT 14 U/L (7-52) 09/29/18 04:30 Alkaline Phosphatase 69 U/L (34-104) 09/29/18 04:30 Troponin I 0.05 ng/mL (0.01-0.05) 09/30/18 04:20 B-Natriuretic Peptide 14.5 pg/mL (5.0-100.0) 09/27/18 10:50 Total Protein 6.2 gm/dL (6.0-8.3) 09/29/18 04:30 Albumin 3.2 gm/dL (3.7-5.3) L 09/29/18 04:30 Globulin 3.0 gm/dL 09/29/18 04:30 Albumin/Globulin Ratio 1.1 (1.0-1.8) 09/29/18 04:30 Triglycerides 162 mg/dL (<150) H 09/28/18 05:40 Cholesterol 165 mg/dL (<200) 09/28/18 05:40 LDL Cholesterol Direct 79 mg/dL (75-193) 09/28/18 05:40 HDL Cholesterol 54 mg/dL (23-92) 09/28/18 05:40 TSH 0.66 uIU/ml (0.34-5.60) 09/28/18 05:40 PTH Interpretation 09/29/18 04:30 PTH Intact 223 pg/mL (15-65) H 09/29/18 04:30 Calcium (PTH Intact) 11.3 mg/dL (8.7-10.3) H 09/29/18 04:30 Urine Source CLEAN C 09/27/18 12:00 Urine Color YELLOW 09/27/18 12:00 Urine Clarity HAZY (CLEAR) 09/27/18 12:00 Urine pH 7.5 (4.6 - 8.0) 09/27/18 12:00 Ur Specific [place] 1.015 (1.005-1.030) 09/27/18 12:00 Urine Protein NEGATIVE mg/dL (NEGATIVE) 09/27/18 12:00 Urine Glucose (UA) NEGATIVE mg/dL (NEGATIVE) 09/27/18 12:00 Urine Ketones NEGATIVE mg/dL (NEGATIVE) 09/27/18 12:00 Urine Blood TRACE (NEGATIVE) 09/27/18 12:00 Urine Nitrate NEGATIVE (NEGATIVE) 09/27/18 12:00 Urine Bilirubin NEGATIVE (NEGATIVE) 09/27/18 12:00 Urine Urobilinogen 0.2 E.U./dL (0.2 - 1.0) 09/27/18 12:00 Ur Leukocyte Esterase NEGATIVE (NEGATIVE) 09/27/18 12:00 Urine RBC 2-5 /hpf (0-5) 09/27/18 12:00 Urine WBC 0-2 /hpf (0-5) 09/27/18 12:00 Ur Epithelial Cells NONE SEEN /lpf (FEW) 09/27/18 12:00 Amorphous Sediment MODERATE PHOSPHATES (NONE SEEN) 09/27/18 12:00 Urine Bacteria FEW /hpf (NONE SEEN) 09/27/18 12:00 Urine Osmolality 315 mOsmol/kg 09/28/18 17:45 Ur Random Sodium 80 mmol/L 09/28/18 17:45 Urine Creatinine 23.0 mg/dl (28.0-217.0) L 09/28/18 17:45 Microalb/Creat Ratio 103.0 mg/g creat (0.0-30.0) H 09/28/18 17:45 RPR NONREACTIVE (NONREACTIVE) 09/27/18 10:50 - Physical Exam Vitals and I&O: Vital Signs Temp 96.7 F 10/01/18 12:04 Pulse 71 10/01/18 12:04 Resp 18 10/01/18 12:25 BP 109/60 10/01/18 12:04 Pulse Ox 97 10/01/18 12:04 Intake & Output 09/30/18 10/01/18 10/01/18 18:59 06:59 18:59 Intake Total 650 100 Balance 650 100 Weight (lbs) 40.823 kg 40.823 kg Intake: Intake, IV Amount 50 100 Piperacillin Sodium/ 50 100 Tazobact 2.25 gm In Sodium Chloride 0.9% 50 ml @ 100 mls/hr IV Q8HR [facility] Rx#:[id number] Oral 600 Other: # Voids 2 2 # Bowel Movements 1 Weight Source Bedscale Bedscale Active Medications: Current Medications Aspirin (Aspirin Chewable) 81 mg PO DAILY [facility] Stop: 11/27/18 08:59 Last Admin: 10/01/18 09:05 Dose: 81 mg Atorvastatin Calcium (Lipitor) 20 mg PO HS [facility]; Protocol Stop: 11/27/18 20:59 Last Admin: 09/30/18 20:30 Dose: 20 mg Bisacodyl (Dulcolax 10 Mg Supp) 10 mg RC DAILY PRN PRN Reason: Constipation Stop: 11/26/18 15:36 Cholecalciferol (Vitamin D3) 1,000 iu PO DAILY [facility] Stop: 11/27/18 08:59 Last Admin: 10/01/18 09:05 Dose: 1,000 iu Cinacalcet (Sensipar) 60 mg PO DAILY [facility] Stop: 11/27/18 08:59 Last Admin: 10/01/18 09:05 Dose: 60 mg Donepezil HCl (Aricept) 5 mg PO HS [facility] Stop: 11/26/18 20:59 Last Admin: 09/30/18 20:30 Dose: 5 mg Folic Acid (Folate) 1 mg PO DAILY [facility] Stop: 11/27/18 08:59 Last Admin: 10/01/18 09:05 Dose: 1 mg Piperacillin Sod/Tazobactam (Sod 2.25 gm/ Sodium Chloride) 50 mls @ 100 mls/hr IV Q8HR [facility] Stop: 11/26/18 20:59 Last Admin: 10/01/18 12:33 Dose: 100 mls/hr Dextrose (D5w) 1,000 mls @ 75 mls/hr IV .[id number] [facility] Stop: 11/29/18 20:29 Last Admin: 09/30/18 20:29 Dose: 75 mls/hr Magnesium Hydroxide (Milk Of Magnesia) 30 ml PO Q72HR PRN PRN Reason: Constipation Stop: 11/26/18 15:36 Memantine (Namenda) 5 mg PO DAILY [facility] Stop: 11/27/18 08:59 Last Admin: 10/01/18 09:05 Dose: 5 mg Multivitamins/Vitamin C (Theragran) 1 tab PO DAILY [facility] Stop: 11/27/18 08:59 Last Admin: 10/01/18 09:05 Dose: 1 tab Potassium Chloride (Klor-Con) 20 meq PO DAILY [facility] Stop: 11/27/18 08:59 Last Admin: 10/01/18 09:05 Dose: 20 meq Sodium Phosphate (Fleet Enema) 135 ml RC DAILY PRN PRN Reason: Constipation Stop: 11/26/18 15:36 General: Alert, No acute distress HEENT: Atraumatic, Mucous membr. moist/pink Neck: Supple, JVD, +2 carotid pulse wo bruit Cardiovascular: Regular rate (flat), Normal S1, Normal S2 Lungs: Clear to auscultation, Normal air movement Abdomen: Bowel sounds, Soft, Other Extremities: Pulses (thyromegaly normal) Neurological: Sensation intact, Reflexes 2+ Skin: no Rash Psych/Mental Status: Other (depressed) Assessment/Plan - Assessment Assessment: Hypo-tension Hypothyroid Hyperlipidemia 6 daily Dementia Hypernatremia Hypercalcemia Hypokalemia and hyperparathyroid - Plan Plan: Continue present management troponin level slightly elevated failure repeat level again patient stable for discharge patient date outpatient endocrine follow-up for hyperparathyroid
--- NOTE | 2018-10-03 19:28 | Discharge Summary ---
DATE OF DISCHARGE: 10/01/2018 The patient was admitted on 09/27/2018 and discharged on 10/01/2018 to [facility]. This patient was admitted to [facility] with a diagnosis of hypertension, dementia, elevated troponin, and hyponatremia. The patient had a complete cardiac workup. ID workup. The patient improved and the patient was given antibiotics and Cardiology saw the patient and cleared the patient. The patient was in stable condition. On 10/01/2018, was discharged back to [facility] in stable condition. MEDICATIONS: See the reconciliation sheet. ACTIVITY AND DIET: As noted in the order sheet. JOB# [id number]
== END 2018-10-01 17:20 | DRG 871 ==
LOC: ER 10:05 → TELE 13:32
PROVIDERS: ADMIT Internal Medicine; ATTEND Internal Medicine
DX: A41.9 Sepsis, unspecified organism (principal); G92 Toxic encephalopathy; N18.6 End stage renal disease; E87.0 Hyperosmolality and hypernatremia; N17.9 Acute kidney failure, unspecified; F02.81 Dementia in other diseases classified elsewhere, unspecified severity, with behavioral disturbance; I24.8 Other forms of acute ischemic heart disease; I12.0 Hypertensive chronic kidney disease with stage 5 chronic kidney disease or end stage renal disease; E21.0 Primary hyperparathyroidism; E03.9 Hypothyroidism, unspecified; E78.5 Hyperlipidemia, unspecified; E86.0 Dehydration; G30.9 Alzheimer's disease, unspecified; M81.0 Age-related osteoporosis without current pathological fracture
CPT/HCPCS: 36415-UA; 71045-TC; 76770-TC; 80048-TC; 80053-TC; 80061-TC; 81001-TC; 81015-TC; 82043-90; 82310-90; 82570-TC; 83605; 83735-TC; 83880-TC; 83935-90; 83970-90; 84300-TC; 84443-TC; 84484-TC; 84550-TC; 85007-TC; 85025-TC; 85610-TC; 85730-TC; 86592-TC; 93005; 96374; 96375; J0696; J2543; J3370; J7030; J7070; Z7610

== ENCOUNTER 2018-10-11 03:06 | Inpatient (IN) | payer MEDICARE, MEDICAID ==
--- NOTE | 2018-10-11 03:54 | ED Physician Chart ---
ED Chief Complaint/HPI - Patient Information Date Seen:: 10/11/18 Time Seen:: 03:49 Chief Complaint:: abnormal labs History of Present Illness:: 87 yr old female from shelter [facility] htn dementia weakness osteoporosis hypokalemia hyperlipidemia hypokalemia hyperparathyroidism Allergies:: Allergies Allergy/AdvReac Type Severity Reaction Status Date / Time No Known Allergies Allergy Verified 09/27/18 10:21 Vitals:: Vital Signs - 8 hr 10/11/18 10/11/18 10/11/18 03:07 03:33 03:37 Temp 96.7 F 96.2 F HR 85 81 88 RR 18 20 10 BP 116/70 118/71 118/77 O2 Sat % 99 100 100 ED Review of Systems - Review of Systems General/Constitutional: No fever Skin: No skin lesions Head: No headache Eyes: No loss of vision ENT: No earache Neck: No neck pain Cardio Vascular: No chest pain Pulmonary: No SOB GI: No vomiting G/U: No dysuria Endocrine: No polyuria Psychiatric: Depression Hematopoietic: No bruising Allergic/Immuno: No urticaria Neurological: No focal symptoms Family Medical History - Family Member Mother History Unknown: Yes Living Status: ED Septic Shock - . Is Septic Shock (SBP<90, OR Lactate>4 mmol\L) present?: No - <6hrs of presentation: Vital Signs: Vital Signs - 8 hr 10/11/18 10/11/18 10/11/18 03:07 03:33 03:37 Temp 96.7 F 96.2 F HR 85 81 88 RR 18 20 10 BP 116/70 118/71 118/77 O2 Sat % 99 100 100 ED Reassessment (Disposition) - Reassessment Reassessment:: abnormal labs - Diagnosis Diagnosis:: as above - Patient Disposition Discharge/Transfer:: Acute Care w/in this hosp Admitted to:: Telemetry Condition at Disposition:: Stable
[2018-10-11 04:07] LABS: % BASOPHILS 0.1 % (0.0-2.0); % EOSINOPHILS 0.9 % (0.0-5.0); % LYMPHOCYTES 13.2 % (20.0-50.0); % MONOCYTES 6.5 % (2.0-10.0); % NEUTROPHILS 79.3 % (40.0-80.0); EOSINOPHILE ABSOLUTE 0.1 Th/cmm (0.1-0.4); HEMATOCRIT 43.3 % (41.0-60); HEMOGLOBIN 14.4 gm/dL (12-16); LYMPHOCYTE ABSOLUTE 1.8 Th/cmm (1.5-3.0); MEAN CELL VOLUME 89.9 fl (81-100); MEAN CORPUSCULAR HEMOGLOBIN 29.9 pg (27.0-31.0); MEAN CORPUSCULAR HGB CONC 33.2 pg (28.0-36.0); MONOCYTE ABSOLUTE 0.9 Th/cmm (0.3-1.0); NEUTROPHILE ABSOLUTE 11.2 Th/cmm (1.8-8.0); PLATELET COUNT 257 Th/cmm (150-400); RED BLOOD COUNT 4.82 Mil/cmm (3.80-5.20); RED CELL DISTRIBUTION WIDTH 14.5 % (11.5-20.0)
[2018-10-11 04:50] LABS: URINE SOURCE CLEAN C
[2018-10-11 04:52] LABS: URINE BILIRUBIN NEGATIVE (NEGATIVE); URINE BLOOD TRACE (NEGATIVE); URINE GLUCOSE (UA) NEGATIVE (NEGATIVE); URINE KETONE NEGATIVE (NEGATIVE); URINE LEUKOCYTE ESTERASE SMALL (NEGATIVE); URINE MICROSCOPIC INDICATED? YES; URINE NITRATE POSITIVE (NEGATIVE); URINE PROTEIN TRACE mg/dL (NEGATIVE); URINE UROBILINOGEN 0.2 E.U./dL (0.2 - 1.0)
[2018-10-11] MEDS ORDERED: cefTRIAXone 2 GM in Sodium Chloride 0.9% 100 ML IV ONE (04:52)
[2018-10-11 04:56] LABS: ALBUMIN 3.8 gm/dL (3.7-5.3); ALKALINE PHOSPHATASE 99 U/L (34-104); ANION GAP 15.3 (7.0-16.0); BILIRUBIN,TOTAL 0.3 mg/dL (0.3-1.0); BUN - UREA NITROGEN 38 mg/dL (7-25); CARBON DIOXIDE 27.8 mEq/L (21.0-31.0); CHLORIDE 116 mEq/L (98-107); CREATININE - SERUM 1.4 mg/dL (0.6-1.2); GLUCOSE 114 mg/dL (70-105); POTASSIUM SERUM 4.1 mEq/L (3.5-5.1); SGOT 27 U/L (13-39); SGPT/ALT 22 U/L (7-52); SODIUM SERUM 155 mEq/L (136-145); TOTAL PROTEIN,SERUM 7.7 gm/dL (6.0-8.3)
[2018-10-11 04:59] LABS: CALCIUM SERUM 13.8 mg/dL (8.6-10.3)
[2018-10-11] MEDS ORDERED: Sodium Chloride 0.9% 500 ML IV ONE (05:05)
[2018-10-11 05:19] LABS: URINE CLARITY HAZY (CLEAR); URINE COLOR YELLOW
[2018-10-11 05:20] LABS: URINE BACTERIA 3+ /hpf (NONE SEEN); URINE EPITHELIAL CELLS OCCASIONAL /lpf (FEW); URINE WBC >100 /hpf (0-5)
[2018-10-11] MEDS ORDERED: Magnesium Hydroxide (MOM) 30 mL UDC PO PRN (06:36)
[2018-10-11] MEDS ORDERED: Fleet Enema 135 mL RC PRN (06:36)
[2018-10-11] MEDS ORDERED: Sodium Chloride 0.45% 1,000 ML IV SCH ×2 (06:45→09:27)
[2018-10-11] MEDS ORDERED: MULTIVITAMIN PO SCH (09:00)
[2018-10-11] MEDS ORDERED: Non-Formulary Item 1 EA (Cholecalciferol (Vitamin D3) [Vitamin D3] 1 TAB) PO SCH (09:00)
[2018-10-11] MEDS ORDERED: Potassium Chloride 20 mEq ER Tab PO SCH (09:00)
[2018-10-11] MEDS ORDERED: Levofloxacin 500mg/100mL 500 MG/100 ML BAG IV SCH (09:27)
[2018-10-11] MEDS: Multivitamin Tab PO SCH (09:37)
[2018-10-11] MEDS: Aspirin 81mg Chewable Tab PO SCH (09:37)
--- NOTE | 2018-10-11 10:02 | History & Physical ---
ADMIT DATE: 10/11/2018 CHIEF COMPLAINT: Abnormal lab results. HISTORY OF PRESENT ILLNESS: This is an 87-year-old female who was [facility] from [facility], transferred to [facility] Emergency Room due to abnormal labs such as low potassium, elevated calcium and elevated sodium. Medical treatment was initiated in the Emergency Room, in which the patient was found to have hypernatremia and hypercalcemia. The patient hence was transferred to telemetry unit for further management. REVIEW OF SYSTEMS: GENERAL: This is an 87-year-old female. Positive weakness. No fever. HEAD: No headache, no dizziness. EYES: No eye pain, no blurring vision. NECK: No neck pain, no nuchal rigidity. CHEST: No chest pain. No palpitation. PULMONARY: No coughing, no shortness of breath. GASTROINTESTINAL: No abdominal pain, no constipation, no diarrhea. MUSCULOSKELETAL: No joint pain. No muscle pain. SOCIAL HISTORY: The patient [facility] in a [facility] facility prior to hospitalization. FAMILY HISTORY: Unremarkable. PSYCHIATRIC HISTORY: Includes dementia. PAST MEDICAL HISTORY: Includes hypertension, hyperlipidemia, vitamin D deficiency, anemia. PAST SURGICAL HISTORY: Unremarkable. PHYSICAL EXAMINATION: VITAL SIGNS: Temperature 96.2, heart rate 88, blood pressure 118/77, respirations of 20, 100% on room air. GENERAL: This is an 87-year-old female that appears as stated in no acute distress. HEENT: Head is atraumatic and normocephalic. Eyes: Bilateral conjunctivae are clear. Bilateral pupils are equally round and reactive. NECK: Supple. No JVD. CARDIOVASCULAR: S1 and S2, without murmur. PULMONARY: Clear to auscultation. GASTROINTESTINAL: Soft and nontender without guarding. Positive bowel sounds. MUSCULOSKELETAL: No clubbing. No cyanosis noted. ASSESSMENT: 1. Hypernatremia. 2. Hypercalcemia. 3. Dementia. 4. Hypertension. 5. Anemia. 6. Hyperlipidemia. 7. Vitamin D deficiency. PLAN: We will admit the patient to telemetry. We will start the patient on half NS at 75 mL per an hour. We will consult with the sole layer. We will put the patient on pureed diet with aspiration precaution. We will do medication reconciliation accordingly. We will repeat labs in the morning. Treatment plans were discussed with the patient's nurse. Treatment plans were discussed with Dr. Farrar. JOB# [id number]
[2018-10-11] MEDS: Dextrose 5% 1,000 ML IV SCH (15:54)
[2018-10-11 18:58] LABS: EOSINOPHIL SMEAR SOURCE URINE; EOSINOPHILS SMEAR COUNT NONE SEEN (NONE SEEN)
[2018-10-11] MEDS ORDERED: Non-Formulary Item 1 EA (Melatonin [Melatonin] 3 MG) PO SCH (21:00)
[2018-10-11] MEDS: Atorvastatin Calcium 10 MG TAB PO SCH (21:28)
[2018-10-12] MEDS: Dextrose 5% 1,000 ML IV SCH ×2 (00:59→15:04)
[2018-10-12 05:26] LABS: % BASOPHILS 2.5 % (0.0-2.0); % EOSINOPHILS 1.4 % (0.0-5.0); % LYMPHOCYTES 12.4 % (20.0-50.0); % MONOCYTES 3.7 % (2.0-10.0); BASOPHILE ABSOLUTE 0.3 Th/cumm (0-0.2); EOSINOPHILE ABSOLUTE 0.1 Th/cmm (0.1-0.4); HEMOGLOBIN 11.6 gm/dL (12-16); LYMPHOCYTE ABSOLUTE 1.3 Th/cmm (1.5-3.0); MEAN CELL VOLUME 89.4 fl (81-100); MEAN CORPUSCULAR HEMOGLOBIN 29.6 pg (27.0-31.0); MEAN CORPUSCULAR HGB CONC 33.1 pg (28.0-36.0); MONOCYTE ABSOLUTE 0.4 Th/cmm (0.3-1.0); NEUTROPHILE ABSOLUTE 8.2 Th/cmm (1.8-8.0); PLATELET COUNT 138 Th/cmm (150-400); RED BLOOD COUNT 3.91 Mil/cmm (3.80-5.20); WHITE BLOOD COUNT 10.3 Th/cmm (4.8-10.8)
[2018-10-12 05:48] LABS: ALKALINE PHOSPHATASE 74 U/L (34-104); ANION GAP 8.5 (7.0-16.0); BILIRUBIN,TOTAL 0.3 mg/dL (0.3-1.0); BUN - UREA NITROGEN 25 mg/dL (7-25); CALCIUM SERUM 11.8 mg/dL (8.6-10.3); CARBON DIOXIDE 27.7 mEq/L (21.0-31.0); CHLORIDE 112 mEq/L (98-107); CREATININE - SERUM 1.1 mg/dL (0.6-1.2); GLUCOSE 116 mg/dL (70-105); MAGNESIUM 2.2 mg/dL (1.9-2.7); PHOSPHOROUS 2.2 mg/dL (2.5-5.0); POTASSIUM SERUM 3.2 mEq/L (3.5-5.1); SGOT 20 U/L (13-39); SGPT/ALT 15 U/L (7-52); SODIUM SERUM 145 mEq/L (136-145); TOTAL PROTEIN,SERUM 5.9 gm/dL (6.0-8.3)
[2018-10-12] MEDS: Multivitamin Tab PO SCH (08:54)
[2018-10-12] MEDS: Levofloxacin 250 mg/50 mL Premix Bag IV SCH (08:54)
[2018-10-12] MEDS: Aspirin 81mg Chewable Tab PO SCH (08:55)
--- NOTE | 2018-10-12 09:06 | Diagnostic Imaging Report ---
Renal ultrasound HISTORY: Abnormal renal function test Somewhat suboptimal detail of the right renal margins. The kidney exhibits an overall normal size (9.3 x 4 0.5 to 4.9 cm). No focal lesions. No hydronephrosis. The left kidney measures 9.9 x 4.4 0.2 cm. No focal lesions. No hydronephrosis. Urinary bladder cannot be evaluated due to lack of distention. IMPRESSION: 1. Negative examination
[2018-10-12] MEDS ORDERED: Potassium Chloride Elixir 20 mEq /15 mL UDC PO ONE (10:22)
--- NOTE | 2018-10-12 14:56 | General Progress Note ---
Subjective - Review of Systems Service Date: 10/12/18 Subjective: sleeping, comfortable Objective - Results Result Diagrams: 10/12/18 05:10 10/12/18 05:10 Recent Labs: Laboratory Last Values WBC 10.3 Th/cmm (4.8-10.8) 10/12/18 05:10 RBC 3.91 Mil/cmm (3.80-5.20) 10/12/18 05:10 Hgb 11.6 gm/dL (12-16) L 10/12/18 05:10 Hct 35.0 % (41.0-60) L 10/12/18 05:10 MCV 89.4 fl (81-100) 10/12/18 05:10 MCH 29.6 pg (27.0-31.0) 10/12/18 05:10 MCHC Differential 33.1 pg (28.0-36.0) 10/12/18 05:10 RDW 14.0 % (11.5-20.0) 10/12/18 05:10 Plt Count 138 Th/cmm (150-400) L 10/12/18 05:10 MPV 9.1 fl 10/12/18 05:10 Neutrophils % 80.0 % (40.0-80.0) 10/12/18 05:10 Lymphocytes % 12.4 % (20.0-50.0) L 10/12/18 05:10 Monocytes % 3.7 % (2.0-10.0) 10/12/18 05:10 Eosinophils % 1.4 % (0.0-5.0) 10/12/18 05:10 Basophils % 2.5 % (0.0-2.0) H 10/12/18 05:10 Eos Smear Source URINE 10/11/18 17:15 Eos Smear Total Cells NONE SEEN (NONE SEEN) 10/11/18 17:15 Sodium 145 mEq/L (136-145) 10/12/18 05:10 Potassium 3.2 mEq/L (3.5-5.1) L 10/12/18 05:10 Chloride 112 mEq/L (98-107) H 10/12/18 05:10 Carbon Dioxide 27.7 mEq/L (21.0-31.0) 10/12/18 05:10 Anion Gap 8.5 (7.0-16.0) 10/12/18 05:10 BUN 25 mg/dL (7-25) 10/12/18 05:10 Creatinine 1.1 mg/dL (0.6-1.2) 10/12/18 05:10 Est GFR ( Amer) TNP 10/12/18 05:10 Est GFR (Non-Af Amer) TNP 10/12/18 05:10 BUN/Creatinine Ratio 22.7 10/12/18 05:10 Glucose 116 mg/dL (70-105) H 10/12/18 05:10 Whole Bld Lactic Acid 1.58 mmol/L (0.60-1.99) 10/11/18 03:55 Calcium 11.8 mg/dL (8.6-10.3) H 10/12/18 05:10 Phosphorus 2.2 mg/dL (2.5-5.0) L 10/12/18 05:10 Magnesium 2.2 mg/dL (1.9-2.7) 10/12/18 05:10 Total Bilirubin 0.3 mg/dL (0.3-1.0) 10/12/18 05:10 AST 20 U/L (13-39) 10/12/18 05:10 ALT 15 U/L (7-52) 10/12/18 05:10 Alkaline Phosphatase 74 U/L (34-104) 10/12/18 05:10 Creatine Kinase 16 U/L (30-223) L 10/11/18 03:55 Troponin I 0.20 ng/mL (0.01-0.05) H* D 10/11/18 03:55 B-Natriuretic Peptide 20.0 pg/mL (5.0-100.0) 10/11/18 03:55 Total Protein 5.9 gm/dL (6.0-8.3) L 10/12/18 05:10 Albumin 3.0 gm/dL (3.7-5.3) L 10/12/18 05:10 Globulin 2.9 gm/dL 10/12/18 05:10 Albumin/Globulin Ratio 1.0 (1.0-1.8) 10/12/18 05:10 TSH 0.83 uIU/ml (0.34-5.60) 10/11/18 03:55 Urine Source CLEAN C 10/11/18 04:41 Urine Color YELLOW 10/11/18 04:41 Urine Clarity HAZY (CLEAR) 10/11/18 04:41 Urine pH 6.0 (4.6 - 8.0) 10/11/18 04:41 Ur Specific [place] 1.015 (1.005-1.030) 10/11/18 04:41 Urine Protein TRACE mg/dL (NEGATIVE) 10/11/18 04:41 Urine Glucose (UA) NEGATIVE mg/dL (NEGATIVE) 10/11/18 04:41 Urine Ketones NEGATIVE mg/dL (NEGATIVE) 10/11/18 04:41 Urine Blood TRACE (NEGATIVE) 10/11/18 04:41 Urine Nitrate POSITIVE (NEGATIVE) H 10/11/18 04:41 Urine Bilirubin NEGATIVE (NEGATIVE) 10/11/18 04:41 Urine Urobilinogen 0.2 E.U./dL (0.2 - 1.0) 10/11/18 04:41 Ur Leukocyte Esterase SMALL (NEGATIVE) H 10/11/18 04:41 Urine RBC 2-5 /hpf (0-5) 10/11/18 04:41 Urine WBC >100 /hpf (0-5) H 10/11/18 04:41 Ur Epithelial Cells OCCASIONAL /lpf (FEW) 10/11/18 04:41 Urine Bacteria 3+ /hpf (NONE SEEN) H 10/11/18 04:41 Urine Creatinine 34.0 mg/dl (28.0-217.0) 10/11/18 17:15 Microalb/Creat Ratio 117.2 mg/g creat (0.0-30.0) H 10/11/18 17:15 - Physical Exam Vitals and I&O: Vital Signs Temp 97.6 F 10/12/18 11:30 Pulse 60 10/12/18 11:30 Resp 16 10/12/18 12:02 BP 125/57 10/12/18 11:30 Pulse Ox 98 10/12/18 11:30 Intake & Output 10/11/18 10/12/18 10/12/18 18:59 06:59 18:59 Intake Total 600 1028.333 Output Total 400 600 Balance 200 428.333 Weight (lbs) 43.998 kg 43.998 kg Intake: Intake, IV Amount 908.333 Dextrose 5% 1,000 ml @ 908.333 100 mls/hr IV .Q10H [facility] Rx#:[id number] Oral 600 120 Output: Urine 400 600 Other: # Voids 2 # Bowel Movements 1 Weight Source Bedscale Bedscale Active Medications: Current Medications Acetaminophen (Tylenol) 650 mg PO Q4HR PRN PRN Reason: Fever > 101 Stop: 12/10/18 06:35 Aspirin (Aspirin Chewable) 81 mg PO DAILY [facility] Stop: 12/10/18 08:59 Last Admin: 10/12/18 08:55 Dose: 81 mg Atorvastatin Calcium (Lipitor) 10 mg PO HS [facility]; Protocol Stop: 12/10/18 20:59 Last Admin: 10/11/18 21:28 Dose: 10 mg Bisacodyl (Dulcolax 10 Mg Supp) 10 mg RC DAILY PRN PRN Reason: Constipation Stop: 12/10/18 06:35 Cholecalciferol (Vitamin D3) 1,000 iu PO DAILY [facility] Stop: 12/10/18 08:59 Last Admin: 10/12/18 08:55 Dose: 1,000 iu Cinacalcet (Sensipar) 60 mg PO DAILY [facility] Stop: 12/10/18 08:59 Last Admin: 10/12/18 08:54 Dose: 60 mg Donepezil HCl (Aricept) 5 mg PO [facility] Stop: 12/10/18 20:59 Last Admin: 10/11/18 21:28 Dose: 5 mg Folic Acid (Folate) 1 mg PO DAILY [facility] Stop: 12/10/18 08:59 Last Admin: 10/12/18 08:54 Dose: 1 mg Levofloxacin (Levaquin Pb) 250 mg in 50 mls @ 50 mls/hr IV Q24HR@0900 [facility] Stop: 12/11/18 08:59 Last Admin: 10/12/18 08:54 Dose: 50 mls/hr Dextrose (D5w) 1,000 mls @ 100 mls/hr IV .Q10H [facility] Stop: 12/10/18 14:59 Last Admin: 10/12/18 00:59 Dose: 100 mls/hr Magnesium Hydroxide (Milk Of Magnesia) 30 ml PO Q72HR PRN PRN Reason: Constipation Stop: 12/10/18 06:35 Memantine (Namenda) 5 mg PO DAILY [facility] Stop: 12/10/18 08:59 Last Admin: 10/12/18 08:54 Dose: 5 mg Multivitamins/Vitamin C (Theragran) 1 tab PO DAILY [facility] Stop: 12/10/18 08:59 Last Admin: 10/12/18 08:54 Dose: 1 tab Sodium Phosphate (Fleet Enema) 135 ml RC DAILY PRN PRN Reason: Constipation Stop: 12/10/18 06:35 General: No acute distress HEENT: Atraumatic, Mucous membr. moist/pink Neck: Supple, +2 carotid pulse wo bruit Cardiovascular: Regular rate, Normal S1, Normal S2 Lungs: Clear to auscultation Abdomen: Bowel sounds, Soft Extremities: no Edema Neurological: Sensation intact Skin: no Rash Psych/Mental Status: Mood NL Assessment/Plan - Assessment Assessment: Hypernatremia Dehydration SATNAM Hypokalemia Ess Htn Dyslipidemia Vit D Def Anemia of CD - Plan Plan: Lab - Result Diagrams 10/12/18 05:10 10/12/18 05:10 Current Medications Acetaminophen (Tylenol) 650 mg PO Q4HR PRN PRN Reason: Fever > 101 Stop: 12/10/18 06:35 Aspirin (Aspirin Chewable) 81 mg PO DAILY [facility] Stop: 12/10/18 08:59 Last Admin: 10/12/18 08:55 Dose: 81 mg Atorvastatin Calcium (Lipitor) 10 mg PO HS [facility]; Protocol Stop: 12/10/18 20:59 Last Admin: 10/11/18 21:28 Dose: 10 mg Bisacodyl (Dulcolax 10 Mg Supp) 10 mg RC DAILY PRN PRN Reason: Constipation Stop: 12/10/18 06:35 Cholecalciferol (Vitamin D3) 1,000 iu PO DAILY [facility] Stop: 12/10/18 08:59 Last Admin: 10/12/18 08:55 Dose: 1,000 iu Cinacalcet (Sensipar) 60 mg PO DAILY [facility] Stop: 12/10/18 08:59 Last Admin: 10/12/18 08:54 Dose: 60 mg Donepezil HCl (Aricept) 5 mg PO HS [facility] Stop: 12/10/18 20:59 Last Admin: 10/11/18 21:28 Dose: 5 mg Folic Acid (Folate) 1 mg PO DAILY [facility] Stop: 12/10/18 08:59 Last Admin: 10/12/18 08:54 Dose: 1 mg Levofloxacin (Levaquin Pb) 250 mg in 50 mls @ 50 mls/hr IV Q24HR@0900 [facility] Stop: 12/11/18 08:59 Last Admin: 10/12/18 08:54 Dose: 50 mls/hr Dextrose (D5w) 1,000 mls @ 100 mls/hr IV .Q10H [facility] Stop: 12/10/18 14:59 Last Admin: 10/12/18 00:59 Dose: 100 mls/hr Magnesium Hydroxide (Milk Of Magnesia) 30 ml PO Q72HR PRN PRN Reason: Constipation Stop: 12/10/18 06:35 Memantine (Namenda) 5 mg PO DAILY [facility] Stop: 12/10/18 08:59 Last Admin: 10/12/18 08:54 Dose: 5 mg Multivitamins/Vitamin C (Theragran) 1 tab PO DAILY [facility] Stop: 12/10/18 08:59 Last Admin: 10/12/18 08:54 Dose: 1 tab Sodium Phosphate (Fleet Enema) 135 ml RC DAILY PRN PRN Reason: Constipation Stop: 12/10/18 06:35 Lab - Result Diagrams 10/12/18 05:10 10/12/18 05:10 agree w/ K replacement, also replace P04 Na down to 145 Kidney fnc stable w/ BUN/CR of 25/1.1 adquate UOP
--- NOTE | 2018-10-12 15:56 | Internal Medicine Prog Note ---
Internal Medicine Subjective - Subjective Service Date: 10/12/18 Patient seen and examined:: with staff Patient is:: awake, verbal, agitated Patient Complaints of:: other (Vitain D deficiency.) Per staff patient has:: no adverse event, no episodes of fall Internal Medicine Objective - Results Result Diagrams: 10/12/18 05:10 10/12/18 05:10 Recent Labs: Laboratory Last Values WBC 10.3 Th/cmm (4.8-10.8) 10/12/18 05:10 RBC 3.91 Mil/cmm (3.80-5.20) 10/12/18 05:10 Hgb 11.6 gm/dL (12-16) L 10/12/18 05:10 Hct 35.0 % (41.0-60) L 10/12/18 05:10 MCV 89.4 fl (81-100) 10/12/18 05:10 MCH 29.6 pg (27.0-31.0) 10/12/18 05:10 MCHC Differential 33.1 pg (28.0-36.0) 10/12/18 05:10 RDW 14.0 % (11.5-20.0) 10/12/18 05:10 Plt Count 138 Th/cmm (150-400) L 10/12/18 05:10 MPV 9.1 fl 10/12/18 05:10 Neutrophils % 80.0 % (40.0-80.0) 10/12/18 05:10 Lymphocytes % 12.4 % (20.0-50.0) L 10/12/18 05:10 Monocytes % 3.7 % (2.0-10.0) 10/12/18 05:10 Eosinophils % 1.4 % (0.0-5.0) 10/12/18 05:10 Basophils % 2.5 % (0.0-2.0) H 10/12/18 05:10 Eos Smear Source URINE 10/11/18 17:15 Eos Smear Total Cells NONE SEEN (NONE SEEN) 10/11/18 17:15 Sodium 145 mEq/L (136-145) 10/12/18 05:10 Potassium 3.2 mEq/L (3.5-5.1) L 10/12/18 05:10 Chloride 112 mEq/L (98-107) H 10/12/18 05:10 Carbon Dioxide 27.7 mEq/L (21.0-31.0) 10/12/18 05:10 Anion Gap 8.5 (7.0-16.0) 10/12/18 05:10 BUN 25 mg/dL (7-25) 10/12/18 05:10 Creatinine 1.1 mg/dL (0.6-1.2) 10/12/18 05:10 Est GFR ( Amer) TNP 10/12/18 05:10 Est GFR (Non-Af Amer) TNP 10/12/18 05:10 BUN/Creatinine Ratio 22.7 10/12/18 05:10 Glucose 116 mg/dL (70-105) H 10/12/18 05:10 Whole Bld Lactic Acid 1.58 mmol/L (0.60-1.99) 10/11/18 03:55 Calcium 11.8 mg/dL (8.6-10.3) H 10/12/18 05:10 Phosphorus 2.2 mg/dL (2.5-5.0) L 10/12/18 05:10 Magnesium 2.2 mg/dL (1.9-2.7) 10/12/18 05:10 Total Bilirubin 0.3 mg/dL (0.3-1.0) 10/12/18 05:10 AST 20 U/L (13-39) 10/12/18 05:10 ALT 15 U/L (7-52) 10/12/18 05:10 Alkaline Phosphatase 74 U/L (34-104) 10/12/18 05:10 Creatine Kinase 16 U/L (30-223) L 10/11/18 03:55 Troponin I 0.20 ng/mL (0.01-0.05) H* D 10/11/18 03:55 B-Natriuretic Peptide 20.0 pg/mL (5.0-100.0) 10/11/18 03:55 Total Protein 5.9 gm/dL (6.0-8.3) L 10/12/18 05:10 Albumin 3.0 gm/dL (3.7-5.3) L 10/12/18 05:10 Globulin 2.9 gm/dL 10/12/18 05:10 Albumin/Globulin Ratio 1.0 (1.0-1.8) 10/12/18 05:10 TSH 0.83 uIU/ml (0.34-5.60) 10/11/18 03:55 Urine Source CLEAN C 10/11/18 04:41 Urine Color YELLOW 10/11/18 04:41 Urine Clarity HAZY (CLEAR) 10/11/18 04:41 Urine pH 6.0 (4.6 - 8.0) 10/11/18 04:41 Ur Specific [place] 1.015 (1.005-1.030) 10/11/18 04:41 Urine Protein TRACE mg/dL (NEGATIVE) 10/11/18 04:41 Urine Glucose (UA) NEGATIVE mg/dL (NEGATIVE) 10/11/18 04:41 Urine Ketones NEGATIVE mg/dL (NEGATIVE) 10/11/18 04:41 Urine Blood TRACE (NEGATIVE) 10/11/18 04:41 Urine Nitrate POSITIVE (NEGATIVE) H 10/11/18 04:41 Urine Bilirubin NEGATIVE (NEGATIVE) 10/11/18 04:41 Urine Urobilinogen 0.2 E.U./dL (0.2 - 1.0) 10/11/18 04:41 Ur Leukocyte Esterase SMALL (NEGATIVE) H 10/11/18 04:41 Urine RBC 2-5 /hpf (0-5) 10/11/18 04:41 Urine WBC >100 /hpf (0-5) H 10/11/18 04:41 Ur Epithelial Cells OCCASIONAL /lpf (FEW) 10/11/18 04:41 Urine Bacteria 3+ /hpf (NONE SEEN) H 10/11/18 04:41 Urine Creatinine 34.0 mg/dl (28.0-217.0) 10/11/18 17:15 Microalb/Creat Ratio 117.2 mg/g creat (0.0-30.0) H 10/11/18 17:15 - Physical Exam Vitals and I&O: Vital Signs Temp 97.6 F 10/12/18 11:30 Pulse 60 10/12/18 11:30 Resp 16 10/12/18 12:02 BP 125/57 10/12/18 11:30 Pulse Ox 98 10/12/18 11:30 Intake & Output 10/11/18 10/12/18 10/12/18 18:59 06:59 18:59 Intake Total 600 3425.803 9613 Output Total 400 600 Balance 200 004.854 2519 Weight (lbs) 43.998 kg 43.998 kg Intake: Intake, IV Amount 166.245 0142 Dextrose 5% 1,000 ml @ 135.676 7920 100 mls/hr IV .Q10H [facility] Rx#:[id number] Oral 600 120 Output: Urine 400 600 Other: # Voids 2 # Bowel Movements 1 Weight Source Bedscale Bedscale Active Medications: Current Medications Acetaminophen (Tylenol) 650 mg PO Q4HR PRN PRN Reason: Fever > 101 Stop: 12/10/18 06:35 Aspirin (Aspirin Chewable) 81 mg PO DAILY [facility] Stop: 12/10/18 08:59 Last Admin: 10/12/18 08:55 Dose: 81 mg Atorvastatin Calcium (Lipitor) 10 mg PO [facility]; Protocol Stop: 12/10/18 20:59 Last Admin: 10/11/18 21:28 Dose: 10 mg Bisacodyl (Dulcolax 10 Mg Supp) 10 mg RC DAILY PRN PRN Reason: Constipation Stop: 12/10/18 06:35 Cholecalciferol (Vitamin D3) 1,000 iu PO DAILY [facility] Stop: 12/10/18 08:59 Last Admin: 10/12/18 08:55 Dose: 1,000 iu Cinacalcet (Sensipar) 60 mg PO DAILY [facility] Stop: 12/10/18 08:59 Last Admin: 10/12/18 08:54 Dose: 60 mg Donepezil HCl (Aricept) 5 mg PO [facility] Stop: 12/10/18 20:59 Last Admin: 10/11/18 21:28 Dose: 5 mg Folic Acid (Folate) 1 mg PO DAILY [facility] Stop: 12/10/18 08:59 Last Admin: 10/12/18 08:54 Dose: 1 mg Levofloxacin (Levaquin Pb) 250 mg in 50 mls @ 50 mls/hr IV Q24HR@0900 [facility] Stop: 12/11/18 08:59 Last Admin: 10/12/18 08:54 Dose: 50 mls/hr Dextrose (D5w) 1,000 mls @ 100 mls/hr IV .Q10H [facility] Stop: 12/10/18 14:59 Last Admin: 10/12/18 15:04 Dose: 100 mls/hr Potassium Phosphate 20 mmole/ (Sodium Chloride) 256.6667 mls @ 42.5 mls/hr IV X1 ONE Stop: 10/12/18 20:59 Magnesium Hydroxide (Milk Of Magnesia) 30 ml PO Q72HR PRN PRN Reason: Constipation Stop: 12/10/18 06:35 Memantine (Namenda) 5 mg PO DAILY [facility] Stop: 12/10/18 08:59 Last Admin: 10/12/18 08:54 Dose: 5 mg Multivitamins/Vitamin C (Theragran) 1 tab PO DAILY [facility] Stop: 12/10/18 08:59 Last Admin: 10/12/18 08:54 Dose: 1 tab Sodium Phosphate (Fleet Enema) 135 ml RC DAILY PRN PRN Reason: Constipation Stop: 12/10/18 06:35 Physical Exam: 87 y/o female patient has generalized weakness and vitamin d deficiency. General: weak, demented HEENT: NC/AT Neck: Supple, No JVD Lungs: CTAB Cardiovascular: RRR, Normal S1 Abdomen: soft, non-tender Extremities: clear Neurological: no change Internal Medicine Assmt/Plan - Assessment Assessment: Dementia. Vitamin D Deficiency. Anemia. Hypertension. Hx of Hyperlipidemia. - Plan Plan: Continuation of care. Monitor Labs. Continue present meds as directed. Monitor vitals, Continue BP meds as directed. Monitor Diet/Nutritional support. Psych management per Psych. Fall precaution, frequent nursing rounds, and as needed restraints to prevent fall. Safety precaution. Supportive care. Continue collaborating with consulting specialists, case management and nursing team. Will Monitor patient and continue current treatment plan as ordered. Nutritional Asmnt/Malnutr-PDOC - Dietary Evaluation Malnutrition Findings (Please click <Entered> for more info): see orders.
--- NOTE | 2018-10-12 18:25 | Consultation ---
DATE OF CONSULTATION: 10/11/2018 ATTENDING PHYSICIAN: Dr. Nataliia Farrar. POULTRY FARMWORKER: Dr. Maulik Lindsay. REASON FOR CONSULTATION: Worsening kidney function, electrolyte imbalance, and fluid management. HISTORY OF PRESENT ILLNESS: This is an 87-year-old female with past medical history of Alzheimer's dementia who was brought in because of abnormal labs. A few hours prior to admission, the patient had labs drawn, which revealed sodium of 155, calcium 13.2. Her white count was 12.9. Urinalysis revealed UTI. Her labs upon arrival at the Emergency Room revealed a white count of 14 and urinalysis confirmed UTI. Her sodium was 155 with a calcium of 13.8 and a BUN/creatinine of 38/1.4. Troponin was 0.2 and BNP of 20. There was no nausea and vomiting, headaches, fevers/chills, abdominal pain, diarrhea, dysuria nor hematuria. PAST MEDICAL HISTORY: 1. Alzheimer's dementia. 2. Essential hypertension. 3. Dyslipidemia. 4. Osteoporosis. 5. Primary hyperparathyroidism. CURRENT MEDICATIONS: She is currently on acetaminophen, aspirin, atorvastatin, bisacodyl, vitamin D, Sensipar, donepezil, folic acid, furosemide, levofloxacin, magnesium hydroxide, Namenda, multivitamins and potassium chloride. ALLERGIES: No known drug allergies. SOCIAL AND FAMILY HISTORY: I was not able to obtain directly from the patient. Because of her dementia she was not able to provide appropriate responses. REVIEW OF SYSTEMS: Again, I was not able to decipher directly from the patient because of the same reason. PHYSICAL EXAMINATION: GENERAL: The patient is awake, verbal; however, remains confused and disoriented, not agitated, but comfortable. VITAL SIGNS: Blood pressure is 108/58, pulse 77, temperature 97.1 degrees. SKIN: Poor turgor, warm, no rash, no jaundice appreciated. HEENT: Head normocephalic, atraumatic. Eyes: Extraocular muscles intact. Pupils equal, round, reactive to light and accommodation. Anicteric sclerae. Pale conjunctivae. Nose, midline nasal septum. Mouth: Dry mucosa. Poor dentition. NECK: Supple, no adenopathy, no thyromegaly and no bruits. Trachea palpated in the midline. CHEST AND CARDIOVASCULAR: S1, S2. No rub, murmur nor gallop appreciated. Point of maximal impulse fifth intercostal space, left midclavicular line. No abdominal or femoral bruits appreciated. LUNGS: Equal expansion. No use of accessory muscles. No supraclavicular retractions. Scattered rhonchi, but no rales nor wheezes appreciated. ABDOMEN: Mildly globular, soft. Positive for bowel sounds. No bruits either diastolic or systolic. RECTAL: Lax sphincter tone. GENITOURINARY: Normal appearing female genitalia. MUSCULOSKELETAL: No effusions present in her joints, but unable to assess her range of motion. EXTREMITIES: No evidence of edema, cyanosis or clubbing. NEUROLOGIC: The patient is awake; however, due to dementia, unable to pursue further my neuro exam. LABORATORY DATA AND STUDIES: Did reveal sodium of 155, potassium 4.1, chloride 116, CO2 of 27, BUN 38, creatinine 1.4. Calcium is 13.8. Troponin is 0.2. BNP is 20. TSH 0.83. White count 14, hemoglobin 14.4, hematocrit ____, polys 79.3%, platelets is 257. IMPRESSION: 1. Acute kidney injury. The patient's mental status seemed to have been altered. As per nurse oral intake has been quite low. Thus, she may have a history of poor oral intake, both solids and liquids. Thus, she was not able to replenish both sensible and insensible fluid losses. Her prerenal azotemia eventually progressed to acute tubular injury. This was supported by physical exam revealing a poor skin turgor with dry oral mucosa and as mentioned, her prerenal azotemia may have eventually progressed to acute tubular injury. She also has underlying complicated UTI, which could eventually lead to development of acute interstitial nephritis. 2. Severe dehydration. 3. Elevated sodium secondary to #2. 4. Elevated troponin, likely due to demand ischemia secondary to dehydration, but also consider contribution from her kidney failure. 5. Hypercalcemia secondary to hyperparathyroidism. 6. Malnutrition. 7. Alzheimer's dementia. 8. Essential hypertension. 9. Dyslipidemia. 10. Osteoporosis. 11. Primary hyperparathyroidism. PLAN: 1. IV fluids. 2. Urine spot sodium, eosinophils, and creatinine. 3. Urine osmolality. 4. Renal ultrasound to also rule out for any calculi due to persistent hypercalcemia. 5. Intact PTH, PTH related protein, vitamin D levels and a 24-hour urine calcium collection. 6. Discontinue furosemide which would worsen her dehydration. 7. Continue her Sensipar. JOB# [id number]
[2018-10-12] MEDS: Atorvastatin Calcium 10 MG TAB PO SCH (21:26)
[2018-10-13] MEDS: Dextrose 5% 1,000 ML IV SCH ×2 (00:52→14:32)
[2018-10-13 04:40] LABS: % BASOPHILS 0.6 % (0.0-2.0); % EOSINOPHILS 2.5 % (0.0-5.0); % LYMPHOCYTES 14.3 % (20.0-50.0); % MONOCYTES 5.4 % (2.0-10.0); % NEUTROPHILS 77.2 % (40.0-80.0); BASOPHILE ABSOLUTE 0.1 Th/cumm (0-0.2); EOSINOPHILE ABSOLUTE 0.2 Th/cmm (0.1-0.4); HEMATOCRIT 32.4 % (41.0-60); HEMOGLOBIN 10.9 gm/dL (12-16); LYMPHOCYTE ABSOLUTE 1.4 Th/cmm (1.5-3.0); MEAN CORPUSCULAR HEMOGLOBIN 30.1 pg (27.0-31.0); MEAN CORPUSCULAR HGB CONC 33.8 pg (28.0-36.0); MONOCYTE ABSOLUTE 0.5 Th/cmm (0.3-1.0); NEUTROPHILE ABSOLUTE 7.4 Th/cmm (1.8-8.0); PLATELET COUNT 153 Th/cmm (150-400); RED BLOOD COUNT 3.63 Mil/cmm (3.80-5.20); RED CELL DISTRIBUTION WIDTH 13.6 % (11.5-20.0); WHITE BLOOD COUNT 9.6 Th/cmm (4.8-10.8)
[2018-10-13] MEDS ORDERED: Potassium Phosphate 20 MMOLE in Sodium Chloride 0.9% 250 ML IV SCH (08:00)
[2018-10-13 08:18] LABS: ANION GAP 9.1 (7.0-16.0); BUN - UREA NITROGEN 16 mg/dL (7-25); CALCIUM SERUM 11.1 mg/dL (8.6-10.3); CARBON DIOXIDE 26.9 mEq/L (21.0-31.0); CHLORIDE 105 mEq/L (98-107); GLUCOSE 108 mg/dL (70-105); PHOSPHOROUS 1.8 mg/dL (2.5-5.0); SODIUM SERUM 138 mEq/L (136-145)
[2018-10-13] MEDS: Levofloxacin 250 mg/50 mL Premix Bag IV SCH (08:37)
[2018-10-13] MEDS: Aspirin 81mg Chewable Tab PO SCH (08:37)
[2018-10-13] MEDS: Multivitamin Tab PO SCH (08:37)
--- NOTE | 2018-10-13 11:46 | Internal Medicine Prog Note ---
Internal Medicine Subjective - Subjective Service Date: 10/13/18 Patient seen and examined:: with staff Patient is:: awake, verbal, agitated Patient Complaints of:: other (Vitain D deficiency.) Per staff patient has:: no adverse event, no episodes of fall Internal Medicine Objective - Results Result Diagrams: 10/13/18 04:25 10/13/18 04:25 Recent Labs: Laboratory Last Values WBC 9.6 Th/cmm (4.8-10.8) 10/13/18 04:25 RBC 3.63 Mil/cmm (3.80-5.20) L 10/13/18 04:25 Hgb 10.9 gm/dL (12-16) L 10/13/18 04:25 Hct 32.4 % (41.0-60) L 10/13/18 04:25 MCV 89.0 fl (81-100) 10/13/18 04:25 MCH 30.1 pg (27.0-31.0) 10/13/18 04:25 MCHC Differential 33.8 pg (28.0-36.0) 10/13/18 04:25 RDW 13.6 % (11.5-20.0) 10/13/18 04:25 Plt Count 153 Th/cmm (150-400) 10/13/18 04:25 MPV 9.2 fl 10/13/18 04:25 Neutrophils % 77.2 % (40.0-80.0) 10/13/18 04:25 Lymphocytes % 14.3 % (20.0-50.0) L 10/13/18 04:25 Monocytes % 5.4 % (2.0-10.0) 10/13/18 04:25 Eosinophils % 2.5 % (0.0-5.0) 10/13/18 04:25 Basophils % 0.6 % (0.0-2.0) 10/13/18 04:25 Eos Smear Source URINE 10/11/18 17:15 Eos Smear Total Cells NONE SEEN (NONE SEEN) 10/11/18 17:15 Sodium 138 mEq/L (136-145) 10/13/18 04:25 Potassium 3.0 mEq/L (3.5-5.1) L 10/13/18 04:25 Chloride 105 mEq/L (98-107) 10/13/18 04:25 Carbon Dioxide 26.9 mEq/L (21.0-31.0) 10/13/18 04:25 Anion Gap 9.1 (7.0-16.0) 10/13/18 04:25 BUN 16 mg/dL (7-25) 10/13/18 04:25 Creatinine 1.0 mg/dL (0.6-1.2) 10/13/18 04:25 Est GFR ( Amer) TNP 10/13/18 04:25 Est GFR (Non-Af Amer) TNP 10/13/18 04:25 BUN/Creatinine Ratio 16.0 10/13/18 04:25 Glucose 108 mg/dL (70-105) H 10/13/18 04:25 Whole Bld Lactic Acid 1.58 mmol/L (0.60-1.99) 10/11/18 03:55 Calcium 11.1 mg/dL (8.6-10.3) H 10/13/18 04:25 Phosphorus 1.8 mg/dL (2.5-5.0) L 10/13/18 04:25 Magnesium 2.2 mg/dL (1.9-2.7) 10/12/18 05:10 Total Bilirubin 0.3 mg/dL (0.3-1.0) 10/12/18 05:10 AST 20 U/L (13-39) 10/12/18 05:10 ALT 15 U/L (7-52) 10/12/18 05:10 Alkaline Phosphatase 74 U/L (34-104) 10/12/18 05:10 Creatine Kinase 16 U/L (30-223) L 10/11/18 03:55 Troponin I 0.20 ng/mL (0.01-0.05) H* D 10/11/18 03:55 B-Natriuretic Peptide 20.0 pg/mL (5.0-100.0) 10/11/18 03:55 Total Protein 5.9 gm/dL (6.0-8.3) L 10/12/18 05:10 Albumin 3.0 gm/dL (3.7-5.3) L 10/12/18 05:10 Globulin 2.9 gm/dL 10/12/18 05:10 Albumin/Globulin Ratio 1.0 (1.0-1.8) 10/12/18 05:10 TSH 0.83 uIU/ml (0.34-5.60) 10/11/18 03:55 Urine Source CLEAN C 10/11/18 04:41 Urine Color YELLOW 10/11/18 04:41 Urine Clarity HAZY (CLEAR) 10/11/18 04:41 Urine pH 6.0 (4.6 - 8.0) 10/11/18 04:41 Ur Specific [place] 1.015 (1.005-1.030) 10/11/18 04:41 Urine Protein TRACE mg/dL (NEGATIVE) 10/11/18 04:41 Urine Glucose (UA) NEGATIVE mg/dL (NEGATIVE) 10/11/18 04:41 Urine Ketones NEGATIVE mg/dL (NEGATIVE) 10/11/18 04:41 Urine Blood TRACE (NEGATIVE) 10/11/18 04:41 Urine Nitrate POSITIVE (NEGATIVE) H 10/11/18 04:41 Urine Bilirubin NEGATIVE (NEGATIVE) 10/11/18 04:41 Urine Urobilinogen 0.2 E.U./dL (0.2 - 1.0) 10/11/18 04:41 Ur Leukocyte Esterase SMALL (NEGATIVE) H 10/11/18 04:41 Urine RBC 2-5 /hpf (0-5) 10/11/18 04:41 Urine WBC >100 /hpf (0-5) H 10/11/18 04:41 Ur Epithelial Cells OCCASIONAL /lpf (FEW) 10/11/18 04:41 Urine Bacteria 3+ /hpf (NONE SEEN) H 10/11/18 04:41 Urine Creatinine 34.0 mg/dl (28.0-217.0) 10/11/18 17:15 Microalb/Creat Ratio 117.2 mg/g creat (0.0-30.0) H 10/11/18 17:15 - Physical Exam Vitals and I&O: Vital Signs Temp 96.5 F 10/13/18 08:54 Pulse 58 10/13/18 08:54 Resp 18 10/13/18 08:54 BP 89/50 10/13/18 08:54 Pulse Ox 96 10/13/18 08:54 Intake & Output 10/12/18 10/13/18 10/13/18 18:59 06:59 18:59 Intake Total 1050 1080 Output Total 500 Balance 1050 580 Weight (lbs) 43.998 kg Intake: Intake, IV Amount 1050 980 Dextrose 5% 1,000 ml @ 1000 980 100 mls/hr IV .Q10H [facility] Rx#:[id number] Levofloxacin 250mg/50mL 50 250 mg In 50 ml @ 50 mls/ hr IV Q24HR@0900 [facility] Rx#: [id number] Oral 100 Output: Urine 500 Other: # Bowel Movements 1 Stool Characteristics Soft Formed Brown Weight Source Bedscale Active Medications: Current Medications Acetaminophen (Tylenol) 650 mg PO Q4HR PRN PRN Reason: Fever > 101 Stop: 12/10/18 06:35 Aspirin (Aspirin Chewable) 81 mg PO DAILY [facility] Stop: 12/10/18 08:59 Last Admin: 10/13/18 08:37 Dose: 81 mg Atorvastatin Calcium (Lipitor) 10 mg PO [facility]; Protocol Stop: 12/10/18 20:59 Last Admin: 10/12/18 21:26 Dose: 10 mg Bisacodyl (Dulcolax 10 Mg Supp) 10 mg RC DAILY PRN PRN Reason: Constipation Stop: 12/10/18 06:35 Cholecalciferol (Vitamin D3) 1,000 iu PO DAILY [facility] Stop: 12/10/18 08:59 Last Admin: 10/13/18 08:37 Dose: 1,000 iu Cinacalcet (Sensipar) 60 mg PO DAILY [facility] Stop: 12/10/18 08:59 Last Admin: 10/13/18 08:36 Dose: 60 mg Donepezil HCl (Aricept) 5 mg PO [facility] Stop: 12/10/18 20:59 Last Admin: 10/12/18 21:26 Dose: 5 mg Folic Acid (Folate) 1 mg PO DAILY [facility] Stop: 12/10/18 08:59 Last Admin: 10/13/18 08:37 Dose: 1 mg Levofloxacin (Levaquin Pb) 250 mg in 50 mls @ 50 mls/hr IV Q24HR@0900 [facility] Stop: 12/11/18 08:59 Last Admin: 10/13/18 08:37 Dose: 50 mls/hr Dextrose (D5w) 1,000 mls @ 100 mls/hr IV .Q10H [facility] Stop: 12/10/18 14:59 Last Admin: 10/13/18 00:52 Dose: 100 mls/hr Potassium Phosphate 20 mmole/ (Sodium Chloride) 256.6667 mls @ 42.5 mls/hr IV 0800 [facility] Stop: 10/13/18 13:00 Last Admin: 10/13/18 09:25 Dose: 42.5 mls/hr Magnesium Hydroxide (Milk Of Magnesia) 30 ml PO Q72HR PRN PRN Reason: Constipation Stop: 12/10/18 06:35 Memantine (Namenda) 5 mg PO DAILY [facility] Stop: 12/10/18 08:59 Last Admin: 10/13/18 08:37 Dose: 5 mg Multivitamins/Vitamin C (Theragran) 1 tab PO DAILY [facility] Stop: 12/10/18 08:59 Last Admin: 10/13/18 08:37 Dose: 1 tab Sodium Phosphate (Fleet Enema) 135 ml RC DAILY PRN PRN Reason: Constipation Stop: 12/10/18 06:35 Physical Exam: 87 y/o female patient has fatigue and weakness. General: weak, demented HEENT: NC/AT Neck: Supple, No JVD Lungs: CTAB Cardiovascular: RRR, Normal S1 Abdomen: soft, non-tender Extremities: clear Neurological: no change Internal Medicine Assmt/Plan - Assessment Assessment: Dementia. Vitamin D Deficiency. Anemia. Hypertension. Hx of Hyperlipidemia. - Plan Plan: Continuation of care. Monitor Labs. Continue present meds as directed. Monitor vitals, Continue BP meds as directed. Monitor Diet/Nutritional support. Psych management per Psych. Fall precaution, frequent nursing rounds, and as needed restraints to prevent fall. Safety precaution. Supportive care. Continue collaborating with consulting specialists, case management and nursing team. Will Monitor patient and continue present care management. Nutritional Asmnt/Malnutr-PDOC - Dietary Evaluation Malnutrition Findings (Please click <Entered> for more info): Nutritional Asmnt/Malnutrition Start: 10/13/18 10: 37 Text: Status: Active Freq: Protocol: Document 10/13/18 10:38 KARTIK (Rec: 10/13/18 10:47 [email or web address]) Nutritional Asmnt/Malnutrition Patient General Information Nutritional Screening High Risk Diagnosis HYPERNATREMIA, HYPERCALECEMIA, Pertinent Medical Hx/Surgical Hx HTN, HYPERLIPIDEMIA, VIT D DEFICIENCY, ANEMIA Subjective Information PT HAS BEEN CLASSIFIED HIGH RISK, NO WEEKEND WRITER EDITOR PT IS A 87 YEAR OLD FEMALE ADMITTED FROM SNF D/T ABNORMAL LABS INCLUDING LOW POTASSIUM, ELEVATED CALCIUM, AND ELEVATED SODIUM. HT: 411 WT: 97 (44.09 KG) BMI: 19.59 (NORMAL) GI: WNL, DISTENDED BM: 10/13 X1 I/O: 2080/500/1580 SKIN: WARM, DRY, ELASTIC, INTACT HODAN: 9 DIET ORDER: GROUND ESTIMATED ENERGY NEEDS: ( GERIATRIC) 1102- 1323 KCALS (25-30 KCALS/ KG) 44-53 G PRO (1.0-1.2 G/KG) 1100- 1300 ML FLUIDS (25-30 ML /KG) PT PO INTAKE: 0-25%, PER MEAL/ NUTRITION ACTIVITY RECORD, NOTED THAT PT HAS VERBALIZED SHE DOES NOT WANT TO EAT. VISITED PT THIS MORNING, TRIED TO GATHER FOOD PREFERENCES, BUT PT WAS A LITTLE CONFUSED. SHE DID SAY SHE LIKED VANILLA ICE CREAM. SPOKE WITH RN, NOREEN, STATED PT ATE 25% BREAKFAST THIS MORNING. WILL ADD VANILLA ENSURE ENLIVE BID AND MAGIC CUP ICE CREAM AT DINNER TO INCREASE NUTRITION INTAKE. Current Diet Order/ Nutrition Support GROUND Pertinent Medications LIPITOR, DULCOLAX (PRN), VIT D3, D5W 1000ML @100ML/HR IV Q10H, FOLATE, MOM (PRN), THERAGRAN, FLEET ENEMA (PRN) Pertinent Labs HGB/HCT 10.9/32.4, POTASS 3.0, GLUC 108, CA 11.1, P 1.8 Nutritional Hx/Data Height 1.5 m Height (Calculated Centimeters) 149.9 Current Weight (lbs) 43.998 kg Weight (Calculated Kilograms) 44.0 Weight (Calculated Grams) 87356.5 [place] Body Weight 98 LBS. % [place] Body Weight 99 Body Mass Index (BMI) 19.5 Weight Status Approriate GI Symptoms GI Symptoms None Last BM 10/13 X1 Skin Integrity/Comment: WARM, DRY, ELASTIC, INTACT Current %PO Negligible < 25% Estimated Nutritional Goals BEE in Kcals: Using Current wt Calories/Kcals/Kg 25-30 Kcals Calculated 1102- 1323 Protein: Using Current wt Protein g/k.0-1.2 Protein Calculated 44-53 Fluid: ml 1100- 1300 ML FLUIDS (25-30 ML /KG) Nutritional Problem 1. Problem Problem INADEQUATE ORAL INTAKE R/T PT REFUSAL TO EAT AEB PO INTAKE 0-25% PER MEAL/NUTRITION RECORD. Etiology R/T PT REFUSAL TO EAT Signs/Symptoms: AEB PO INTAKE 0-25% PER MEAL/ NUTRITION RECORD Malnutrition Related to Morbid Obesity Malnutrition related to morbid obesity No Intervention/Recommendation Comments 1.CONTINUE WITH GROUND DIET ORDERED. 2.ADD ENSURE ENLIVE BID AND MAGIC CUP ICE CREAM AT DINNER TO INCREASE NUTRITION INTAKE. Expected Outcomes/Goals Expected Outcomes/Goals 1.PO INTAKE TO MEET AT LEAST 65% OF NUTRITIONAL NEEDS. 2.MONITOR PO INTAKE, WT, NUTRITION RELATED LABS AND SKIN INTEGRITY. 3.F/U HIGH RISK IN 2-3 DAYS , 10/15-10/16.
[2018-10-13] MEDS ORDERED: Potassium Phosphate 20 MMOLE in Sodium Chloride 0.9% 250 ML IV ONE (17:53)
--- NOTE | 2018-10-13 17:56 | General Progress Note ---
Subjective - Review of Systems Service Date: 10/13/18 Subjective: awake, verbal, confused Objective - Results Result Diagrams: 10/13/18 04:25 10/13/18 04:25 Recent Labs: Laboratory Last Values WBC 9.6 Th/cmm (4.8-10.8) 10/13/18 04:25 RBC 3.63 Mil/cmm (3.80-5.20) L 10/13/18 04:25 Hgb 10.9 gm/dL (12-16) L 10/13/18 04:25 Hct 32.4 % (41.0-60) L 10/13/18 04:25 MCV 89.0 fl (81-100) 10/13/18 04:25 MCH 30.1 pg (27.0-31.0) 10/13/18 04:25 MCHC Differential 33.8 pg (28.0-36.0) 10/13/18 04:25 RDW 13.6 % (11.5-20.0) 10/13/18 04:25 Plt Count 153 Th/cmm (150-400) 10/13/18 04:25 MPV 9.2 fl 10/13/18 04:25 Neutrophils % 77.2 % (40.0-80.0) 10/13/18 04:25 Lymphocytes % 14.3 % (20.0-50.0) L 10/13/18 04:25 Monocytes % 5.4 % (2.0-10.0) 10/13/18 04:25 Eosinophils % 2.5 % (0.0-5.0) 10/13/18 04:25 Basophils % 0.6 % (0.0-2.0) 10/13/18 04:25 Eos Smear Source URINE 10/11/18 17:15 Eos Smear Total Cells NONE SEEN (NONE SEEN) 10/11/18 17:15 Sodium 138 mEq/L (136-145) 10/13/18 04:25 Potassium 3.0 mEq/L (3.5-5.1) L 10/13/18 04:25 Chloride 105 mEq/L (98-107) 10/13/18 04:25 Carbon Dioxide 26.9 mEq/L (21.0-31.0) 10/13/18 04:25 Anion Gap 9.1 (7.0-16.0) 10/13/18 04:25 BUN 16 mg/dL (7-25) 10/13/18 04:25 Creatinine 1.0 mg/dL (0.6-1.2) 10/13/18 04:25 Est GFR ( Amer) TNP 10/13/18 04:25 Est GFR (Non-Af Amer) TNP 10/13/18 04:25 BUN/Creatinine Ratio 16.0 10/13/18 04:25 Glucose 108 mg/dL (70-105) H 10/13/18 04:25 Whole Bld Lactic Acid 1.58 mmol/L (0.60-1.99) 10/11/18 03:55 Calcium 11.1 mg/dL (8.6-10.3) H 10/13/18 04:25 Phosphorus 1.8 mg/dL (2.5-5.0) L 10/13/18 04:25 Magnesium 2.2 mg/dL (1.9-2.7) 10/12/18 05:10 Total Bilirubin 0.3 mg/dL (0.3-1.0) 10/12/18 05:10 AST 20 U/L (13-39) 10/12/18 05:10 ALT 15 U/L (7-52) 10/12/18 05:10 Alkaline Phosphatase 74 U/L (34-104) 10/12/18 05:10 Creatine Kinase 16 U/L (30-223) L 10/11/18 03:55 Troponin I 0.20 ng/mL (0.01-0.05) H* D 10/11/18 03:55 B-Natriuretic Peptide 20.0 pg/mL (5.0-100.0) 10/11/18 03:55 Total Protein 5.9 gm/dL (6.0-8.3) L 10/12/18 05:10 Albumin 3.0 gm/dL (3.7-5.3) L 10/12/18 05:10 Globulin 2.9 gm/dL 10/12/18 05:10 Albumin/Globulin Ratio 1.0 (1.0-1.8) 10/12/18 05:10 TSH 0.83 uIU/ml (0.34-5.60) 10/11/18 03:55 Urine Source CLEAN C 10/11/18 04:41 Urine Color YELLOW 10/11/18 04:41 Urine Clarity HAZY (CLEAR) 10/11/18 04:41 Urine pH 6.0 (4.6 - 8.0) 10/11/18 04:41 Ur Specific [place] 1.015 (1.005-1.030) 10/11/18 04:41 Urine Protein TRACE mg/dL (NEGATIVE) 10/11/18 04:41 Urine Glucose (UA) NEGATIVE mg/dL (NEGATIVE) 10/11/18 04:41 Urine Ketones NEGATIVE mg/dL (NEGATIVE) 10/11/18 04:41 Urine Blood TRACE (NEGATIVE) 10/11/18 04:41 Urine Nitrate POSITIVE (NEGATIVE) H 10/11/18 04:41 Urine Bilirubin NEGATIVE (NEGATIVE) 10/11/18 04:41 Urine Urobilinogen 0.2 E.U./dL (0.2 - 1.0) 10/11/18 04:41 Ur Leukocyte Esterase SMALL (NEGATIVE) H 10/11/18 04:41 Urine RBC 2-5 /hpf (0-5) 10/11/18 04:41 Urine WBC >100 /hpf (0-5) H 10/11/18 04:41 Ur Epithelial Cells OCCASIONAL /lpf (FEW) 10/11/18 04:41 Urine Bacteria 3+ /hpf (NONE SEEN) H 10/11/18 04:41 Urine Creatinine 34.0 mg/dl (28.0-217.0) 10/11/18 17:15 Microalb/Creat Ratio 117.2 mg/g creat (0.0-30.0) H 10/11/18 17:15 - Physical Exam Vitals and I&O: Vital Signs Temp 97.9 F 10/13/18 16:12 Pulse 67 10/13/18 16:12 Resp 19 10/13/18 16:12 BP 105/48 10/13/18 16:12 Pulse Ox 97 10/13/18 16:12 Intake & Output 10/12/18 10/13/18 10/13/18 18:59 06:59 18:59 Intake Total 1050 1080 1000 Output Total 500 Balance 3043 241 9530 Weight (lbs) 43.998 kg Intake: Intake, IV Amount 1020 732 7603 Dextrose 5% 1,000 ml @ 7779 851 4012 100 mls/hr IV .Q10H [facility] Rx#:[id number] Levofloxacin 250mg/50mL 50 250 mg In 50 ml @ 50 mls/ hr IV Q24HR@0900 [facility] Rx#: [id number] Oral 100 Output: Urine 500 Other: # Bowel Movements 1 Stool Characteristics Soft Formed Brown Weight Source Bedscale Active Medications: Current Medications Acetaminophen (Tylenol) 650 mg PO Q4HR PRN PRN Reason: Fever > 101 Stop: 12/10/18 06:35 Aspirin (Aspirin Chewable) 81 mg PO DAILY [facility] Stop: 12/10/18 08:59 Last Admin: 10/13/18 08:37 Dose: 81 mg Atorvastatin Calcium (Lipitor) 10 mg PO HS [facility]; Protocol Stop: 12/10/18 20:59 Last Admin: 10/12/18 21:26 Dose: 10 mg Bisacodyl (Dulcolax 10 Mg Supp) 10 mg RC DAILY PRN PRN Reason: Constipation Stop: 12/10/18 06:35 Cholecalciferol (Vitamin D3) 1,000 iu PO DAILY [facility] Stop: 12/10/18 08:59 Last Admin: 10/13/18 08:37 Dose: 1,000 iu Cinacalcet (Sensipar) 60 mg PO DAILY [facility] Stop: 12/10/18 08:59 Last Admin: 10/13/18 08:36 Dose: 60 mg Donepezil HCl (Aricept) 5 mg PO HS [facility] Stop: 12/10/18 20:59 Last Admin: 10/12/18 21:26 Dose: 5 mg Folic Acid (Folate) 1 mg PO DAILY [facility] Stop: 12/10/18 08:59 Last Admin: 10/13/18 08:37 Dose: 1 mg Levofloxacin (Levaquin Pb) 250 mg in 50 mls @ 50 mls/hr IV Q24HR@0900 [facility] Stop: 12/11/18 08:59 Last Admin: 10/13/18 08:37 Dose: 50 mls/hr Dextrose (D5w) 1,000 mls @ 100 mls/hr IV .Q10H [facility] Stop: 12/10/18 14:59 Last Admin: 10/13/18 14:32 Dose: 100 mls/hr Potassium Phosphate 20 mmole/ (Sodium Chloride) 256.6667 mls @ 42.5 mls/hr IV X1 ONE Stop: 10/13/18 23:55 Magnesium Hydroxide (Milk Of Magnesia) 30 ml PO Q72HR PRN PRN Reason: Constipation Stop: 12/10/18 06:35 Memantine (Namenda) 5 mg PO DAILY [facility] Stop: 12/10/18 08:59 Last Admin: 10/13/18 08:37 Dose: 5 mg Multivitamins/Vitamin C (Theragran) 1 tab PO DAILY [facility] Stop: 12/10/18 08:59 Last Admin: 10/13/18 08:37 Dose: 1 tab Sodium Phosphate (Fleet Enema) 135 ml RC DAILY PRN PRN Reason: Constipation Stop: 12/10/18 06:35 General: No acute distress HEENT: Atraumatic, Mucous membr. moist/pink Neck: Supple, +2 carotid pulse wo bruit Cardiovascular: Regular rate, Normal S1, Normal S2 Lungs: Clear to auscultation Abdomen: Bowel sounds, Soft Extremities: no Edema Neurological: Sensation intact Skin: no Rash Psych/Mental Status: Mood NL Assessment/Plan - Assessment Assessment: Hypernatremia Dehydration SATNAM Hypokalemia Ess Htn Dyslipidemia Vit D Def Anemia of CD - Plan Plan: Lab - Result Diagrams 10/12/18 05:10 10/12/18 05:10 Current Medications Acetaminophen (Tylenol) 650 mg PO Q4HR PRN PRN Reason: Fever > 101 Stop: 12/10/18 06:35 Aspirin (Aspirin Chewable) 81 mg PO DAILY [facility] Stop: 12/10/18 08:59 Last Admin: 10/12/18 08:55 Dose: 81 mg Atorvastatin Calcium (Lipitor) 10 mg PO HS [facility]; Protocol Stop: 12/10/18 20:59 Last Admin: 10/11/18 21:28 Dose: 10 mg Bisacodyl (Dulcolax 10 Mg Supp) 10 mg RC DAILY PRN PRN Reason: Constipation Stop: 12/10/18 06:35 Cholecalciferol (Vitamin D3) 1,000 iu PO DAILY [facility] Stop: 12/10/18 08:59 Last Admin: 10/12/18 08:55 Dose: 1,000 iu Cinacalcet (Sensipar) 60 mg PO DAILY [facility] Stop: 12/10/18 08:59 Last Admin: 10/12/18 08:54 Dose: 60 mg Donepezil HCl (Aricept) 5 mg PO HS [facility] Stop: 12/10/18 20:59 Last Admin: 10/11/18 21:28 Dose: 5 mg Folic Acid (Folate) 1 mg PO DAILY [facility] Stop: 12/10/18 08:59 Last Admin: 10/12/18 08:54 Dose: 1 mg Levofloxacin (Levaquin Pb) 250 mg in 50 mls @ 50 mls/hr IV Q24HR@0900 [facility] Stop: 12/11/18 08:59 Last Admin: 10/12/18 08:54 Dose: 50 mls/hr Dextrose (D5w) 1,000 mls @ 100 mls/hr IV .Q10H [facility] Stop: 12/10/18 14:59 Last Admin: 10/12/18 00:59 Dose: 100 mls/hr Magnesium Hydroxide (Milk Of Magnesia) 30 ml PO Q72HR PRN PRN Reason: Constipation Stop: 12/10/18 06:35 Memantine (Namenda) 5 mg PO DAILY [facility] Stop: 12/10/18 08:59 Last Admin: 10/12/18 08:54 Dose: 5 mg Multivitamins/Vitamin C (Theragran) 1 tab PO DAILY [facility] Stop: 12/10/18 08:59 Last Admin: 10/12/18 08:54 Dose: 1 tab Sodium Phosphate (Fleet Enema) 135 ml RC DAILY PRN PRN Reason: Constipation Stop: 12/10/18 06:3 Lab - Result Diagrams 10/13/18 04:25 10/13/18 04:25 agree w/ KP04 replacement Na down to 138 Kidney fnc stable w/ BUN/CR of 16/1 adquate UOP Nutritional Asmnt/Malnutr-PDOC - Dietary Evaluation Malnutrition Findings (Please click <Entered> for more info): Nutritional Asmnt/Malnutrition Start: 10/13/18 10: 37 Text: Status: Active Freq: Protocol: Document 10/13/18 10:38 KARTIK (Rec: 10/13/18 10:47 [email or web address]) Nutritional Asmnt/Malnutrition Patient General Information Nutritional Screening High Risk Diagnosis HYPERNATREMIA, HYPERCALECEMIA, Pertinent Medical Hx/Surgical Hx HTN, HYPERLIPIDEMIA, VIT D DEFICIENCY, ANEMIA Subjective Information PT HAS BEEN CLASSIFIED HIGH RISK, NO WEEKEND 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 HT: 411 WT: 97 (44.09 KG) BMI: 19.59 (NORMAL) GI: WNL, DISTENDED BM: 10/13 X1 I/O: 2080/500/1580 SKIN: WARM, DRY, ELASTIC, INTACT HODAN: 9 DIET ORDER: GROUND ESTIMATED ENERGY NEEDS: ( GERIATRIC) 1102- 1323 KCALS (25-30 KCALS/ KG) 44-53 G PRO (1.0-1.2 G/KG) 1100- 1300 ML FLUIDS (25-30 ML /KG) PT PO INTAKE: 0-25%, PER MEAL/ NUTRITION ACTIVITY RECORD, NOTED THAT PT HAS VERBALIZED SHE DOES NOT WANT TO EAT. VISITED PT THIS MORNING, TRIED TO GATHER FOOD PREFERENCES, BUT PT WAS A LITTLE CONFUSED. SHE DID SAY SHE LIKED VANILLA ICE CREAM. SPOKE WITH RN, NOREEN, STATED PT ATE 25% BREAKFAST THIS MORNING. WILL ADD VANILLA ENSURE ENLIVE BID AND MAGIC CUP ICE CREAM AT DINNER TO INCREASE NUTRITION INTAKE. Current Diet Order/ Nutrition Support GROUND Pertinent Medications LIPITOR, DULCOLAX (PRN), VIT D3, D5W 1000ML @100ML/HR IV Q10H, FOLATE, MOM (PRN), THERAGRAN, FLEET ENEMA (PRN) Pertinent Labs HGB/HCT 10.9/32.4, POTASS 3.0, GLUC 108, CA 11.1, P 1.8 Nutritional Hx/Data Height 1.5 m Height (Calculated Centimeters) 149.9 Current Weight (lbs) 43.998 kg Weight (Calculated Kilograms) 44.0 Weight (Calculated Grams) 66489.5 [place] Body Weight 98 LBS. % [place] Body Weight 99 Body Mass Index (BMI) 19.5 Weight Status Approriate GI Symptoms GI Symptoms None Last BM 10/13 X1 Skin Integrity/Comment: WARM, DRY, ELASTIC, INTACT Current %PO Negligible < 25% Estimated Nutritional Goals BEE in Kcals: Using Current wt Calories/Kcals/Kg 25-30 Kcals Calculated 1102- 1323 Protein: Using Current wt Protein g/k.0-1.2 Protein Calculated 44-53 Fluid: ml 1100- 1300 ML FLUIDS (25-30 ML /KG) Nutritional Problem 1. Problem Problem INADEQUATE ORAL INTAKE R/T PT REFUSAL TO EAT AEB PO INTAKE 0-25% PER MEAL/NUTRITION RECORD. Etiology R/T PT REFUSAL TO EAT Signs/Symptoms: AEB PO INTAKE 0-25% PER MEAL/ NUTRITION RECORD Malnutrition Related to Morbid Obesity Malnutrition related to morbid obesity No Intervention/Recommendation Comments 1.CONTINUE WITH GROUND DIET ORDERED. 2.ADD ENSURE ENLIVE BID AND MAGIC CUP ICE CREAM AT DINNER TO INCREASE NUTRITION INTAKE. Expected Outcomes/Goals Expected Outcomes/Goals 1.PO INTAKE TO MEET AT LEAST 65% OF NUTRITIONAL NEEDS. 2.MONITOR PO INTAKE, WT, NUTRITION RELATED LABS AND SKIN INTEGRITY. 3.F/U HIGH RISK IN 2-3 DAYS , 10/15-10/16.
[2018-10-13] MEDS: Atorvastatin Calcium 10 MG TAB PO SCH (21:25)
[2018-10-14 05:52] LABS: ANION GAP 11.7 (7.0-16.0); BUN - UREA NITROGEN 13 mg/dL (7-25); CALCIUM SERUM 11.1 mg/dL (8.6-10.3); CARBON DIOXIDE 24.1 mEq/L (21.0-31.0); CHLORIDE 108 mEq/L (98-107); GLUCOSE 85 mg/dL (70-105); PHOSPHOROUS 2.3 mg/dL (2.5-5.0); SODIUM SERUM 141 mEq/L (136-145)
[2018-10-14 06:06] LABS: POTASSIUM SERUM 2.8 mEq/L (3.5-5.1)
[2018-10-14] MEDS ORDERED: Potassium Chloride 20 mEq ER Tab PO ONE (06:19)
[2018-10-14] MEDS ORDERED: Potassium Chloride Elixir 20 mEq /15 mL UDC PO ONE (06:23)
[2018-10-14] MEDS ORDERED: Potassium Phosphate 20 MMOLE in Sodium Chloride 0.9% 250 ML IV ONE (06:26)
[2018-10-14] MEDS: Levofloxacin 250 mg/50 mL Premix Bag IV SCH (08:20)
[2018-10-14] MEDS: Multivitamin Tab PO SCH (08:21)
[2018-10-14] MEDS: Aspirin 81mg Chewable Tab PO SCH (08:21)
--- NOTE | 2018-10-14 11:51 | Internal Medicine Prog Note ---
Internal Medicine Subjective - Subjective Service Date: 10/14/18 Patient seen and examined:: with staff Patient is:: awake, verbal, agitated Patient Complaints of:: other (Vitain D deficiency.) Per staff patient has:: no adverse event, no episodes of fall Internal Medicine Objective - Results Result Diagrams: 10/13/18 04:25 10/14/18 04:25 Recent Labs: Laboratory Last Values WBC 9.6 Th/cmm (4.8-10.8) 10/13/18 04:25 RBC 3.63 Mil/cmm (3.80-5.20) L 10/13/18 04:25 Hgb 10.9 gm/dL (12-16) L 10/13/18 04:25 Hct 32.4 % (41.0-60) L 10/13/18 04:25 MCV 89.0 fl (81-100) 10/13/18 04:25 MCH 30.1 pg (27.0-31.0) 10/13/18 04:25 MCHC Differential 33.8 pg (28.0-36.0) 10/13/18 04:25 RDW 13.6 % (11.5-20.0) 10/13/18 04:25 Plt Count 153 Th/cmm (150-400) 10/13/18 04:25 MPV 9.2 fl 10/13/18 04:25 Neutrophils % 77.2 % (40.0-80.0) 10/13/18 04:25 Lymphocytes % 14.3 % (20.0-50.0) L 10/13/18 04:25 Monocytes % 5.4 % (2.0-10.0) 10/13/18 04:25 Eosinophils % 2.5 % (0.0-5.0) 10/13/18 04:25 Basophils % 0.6 % (0.0-2.0) 10/13/18 04:25 Eos Smear Source URINE 10/11/18 17:15 Eos Smear Total Cells NONE SEEN (NONE SEEN) 10/11/18 17:15 Sodium 141 mEq/L (136-145) 10/14/18 04:25 Potassium 2.8 mEq/L (3.5-5.1) L* 10/14/18 04:25 Chloride 108 mEq/L (98-107) H 10/14/18 04:25 Carbon Dioxide 24.1 mEq/L (21.0-31.0) 10/14/18 04:25 Anion Gap 11.7 (7.0-16.0) 10/14/18 04:25 BUN 13 mg/dL (7-25) 10/14/18 04:25 Creatinine 1.0 mg/dL (0.6-1.2) 10/14/18 04:25 Est GFR ( Amer) TNP 10/14/18 04:25 Est GFR (Non-Af Amer) TNP 10/14/18 04:25 BUN/Creatinine Ratio 13.0 10/14/18 04:25 Glucose 85 mg/dL (70-105) 10/14/18 04:25 Whole Bld Lactic Acid 1.58 mmol/L (0.60-1.99) 10/11/18 03:55 Calcium 11.1 mg/dL (8.6-10.3) H 10/14/18 04:25 Phosphorus 2.3 mg/dL (2.5-5.0) L 10/14/18 04:25 Magnesium 2.0 mg/dL (1.9-2.7) 10/14/18 04:25 Total Bilirubin 0.3 mg/dL (0.3-1.0) 10/12/18 05:10 AST 20 U/L (13-39) 10/12/18 05:10 ALT 15 U/L (7-52) 10/12/18 05:10 Alkaline Phosphatase 74 U/L (34-104) 10/12/18 05:10 Creatine Kinase 16 U/L (30-223) L 10/11/18 03:55 Troponin I 0.20 ng/mL (0.01-0.05) H* D 10/11/18 03:55 B-Natriuretic Peptide 20.0 pg/mL (5.0-100.0) 10/11/18 03:55 Total Protein 5.9 gm/dL (6.0-8.3) L 10/12/18 05:10 Albumin 3.0 gm/dL (3.7-5.3) L 10/12/18 05:10 Globulin 2.9 gm/dL 10/12/18 05:10 Albumin/Globulin Ratio 1.0 (1.0-1.8) 10/12/18 05:10 Vitamin D 25-Hydroxy 27.7 ng/mL (30.0-100.0) L 10/12/18 05:10 TSH 0.83 uIU/ml (0.34-5.60) 10/11/18 03:55 Urine Source CLEAN C 10/11/18 04:41 Urine Color YELLOW 10/11/18 04:41 Urine Clarity HAZY (CLEAR) 10/11/18 04:41 Urine pH 6.0 (4.6 - 8.0) 10/11/18 04:41 Ur Specific [place] 1.015 (1.005-1.030) 10/11/18 04:41 Urine Protein TRACE mg/dL (NEGATIVE) 10/11/18 04:41 Urine Glucose (UA) NEGATIVE mg/dL (NEGATIVE) 10/11/18 04:41 Urine Ketones NEGATIVE mg/dL (NEGATIVE) 10/11/18 04:41 Urine Blood TRACE (NEGATIVE) 10/11/18 04:41 Urine Nitrate POSITIVE (NEGATIVE) H 10/11/18 04:41 Urine Bilirubin NEGATIVE (NEGATIVE) 10/11/18 04:41 Urine Urobilinogen 0.2 E.U./dL (0.2 - 1.0) 10/11/18 04:41 Ur Leukocyte Esterase SMALL (NEGATIVE) H 10/11/18 04:41 Urine RBC 2-5 /hpf (0-5) 10/11/18 04:41 Urine WBC >100 /hpf (0-5) H 10/11/18 04:41 Ur Epithelial Cells OCCASIONAL /lpf (FEW) 10/11/18 04:41 Urine Bacteria 3+ /hpf (NONE SEEN) H 10/11/18 04:41 Urine Osmolality 316 mOsmol/kg 10/11/18 17:15 Urine Creatinine 34.0 mg/dl (28.0-217.0) 10/11/18 17:15 Microalb/Creat Ratio 117.2 mg/g creat (0.0-30.0) H 10/11/18 17:15 - Physical Exam Vitals and I&O: Vital Signs Temp 98 F 10/14/18 08:00 Pulse 85 10/14/18 08:00 Resp 18 10/14/18 08:00 BP 128/68 10/14/18 08:00 Pulse Ox 100 10/14/18 08:00 Intake & Output 10/13/18 10/14/18 10/14/18 18:59 06:59 18:59 Intake Total 1500 Output Total 1350 Balance 150 Weight (lbs) 43.998 kg Intake: Intake, IV Amount 1050 Dextrose 5% 1,000 ml @ 1000 100 mls/hr IV .Q10H [facility] Rx#:[id number] Levofloxacin 250mg/50mL 50 250 mg In 50 ml @ 50 mls/ hr IV Q24HR@0900 [facility] Rx#: [id number] Oral 450 Output: Urine 1350 Other: # Bowel Movements 2 Stool Characteristics Soft Soft Soft Formed Formed Formed Brown Brown Brown Weight Source Bedscale Active Medications: Current Medications Acetaminophen (Tylenol) 650 mg PO Q4HR PRN PRN Reason: Fever > 101 Stop: 12/10/18 06:35 Aspirin (Aspirin Chewable) 81 mg PO DAILY [facility] Stop: 12/10/18 08:59 Last Admin: 10/14/18 08:21 Dose: 81 mg Atorvastatin Calcium (Lipitor) 10 mg PO [facility]; Protocol Stop: 12/10/18 20:59 Last Admin: 10/13/18 21:25 Dose: 10 mg Bisacodyl (Dulcolax 10 Mg Supp) 10 mg RC DAILY PRN PRN Reason: Constipation Stop: 12/10/18 06:35 Cholecalciferol (Vitamin D3) 1,000 iu PO DAILY [facility] Stop: 12/10/18 08:59 Last Admin: 10/14/18 08:21 Dose: 1,000 iu Cinacalcet (Sensipar) 60 mg PO DAILY [facility] Stop: 12/10/18 08:59 Last Admin: 10/14/18 08:20 Dose: 60 mg Donepezil HCl (Aricept) 5 mg PO [facility] Stop: 12/10/18 20:59 Last Admin: 10/13/18 21:25 Dose: 5 mg Folic Acid (Folate) 1 mg PO DAILY [facility] Stop: 12/10/18 08:59 Last Admin: 10/14/18 08:21 Dose: 1 mg Levofloxacin (Levaquin Pb) 250 mg in 50 mls @ 50 mls/hr IV Q24HR@0900 [facility] Stop: 12/11/18 08:59 Last Admin: 10/14/18 08:20 Dose: 50 mls/hr Potassium Phosphate 20 mmole/ (Sodium Chloride) 256.6667 mls @ 42.5 mls/hr IV X1 [facility] Stop: 10/14/18 12:28 Last Admin: 10/14/18 07:59 Dose: 42.5 mls/hr Magnesium Hydroxide (Milk Of Magnesia) 30 ml PO Q72HR PRN PRN Reason: Constipation Stop: 12/10/18 06:35 Memantine (Namenda) 5 mg PO DAILY [facility] Stop: 12/10/18 08:59 Last Admin: 10/14/18 08:21 Dose: 5 mg Multivitamins/Vitamin C (Theragran) 1 tab PO DAILY [facility] Stop: 12/10/18 08:59 Last Admin: 10/14/18 08:21 Dose: 1 tab Sodium Phosphate (Fleet Enema) 135 ml RC DAILY PRN PRN Reason: Constipation Stop: 12/10/18 06:35 Physical Exam: 87 y/o female patient is very tired and weakness. General: weak, demented HEENT: NC/AT Neck: Supple, No JVD Lungs: CTAB Cardiovascular: RRR, Normal S1 Abdomen: soft, non-tender Extremities: clear Neurological: no change Internal Medicine Assmt/Plan - Assessment Assessment: Dementia. Vitamin D Deficiency. Anemia. Hypertension. Hx of Hyperlipidemia. - Plan Plan: Continuation of care. Monitor Labs. Continue present meds as directed. Monitor vitals, Continue BP meds as directed. Monitor Diet/Nutritional support. Psych management per Psych. Fall precaution, frequent nursing rounds, and as needed restraints to prevent fall. Safety precaution. Supportive care. Continue collaborating with consulting specialists, case management and nursing team. Will Monitor patient and continue present care management. 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 HT: 411 WT: 97 (44.09 KG) BMI: 19.59 (NORMAL) GI: WNL, DISTENDED BM: 10/13 X1 I/O: 2080/500/1580 SKIN: WARM, DRY, ELASTIC, INTACT HODAN: 9 DIET ORDER: GROUND ESTIMATED ENERGY NEEDS: ( GERIATRIC) 1102- 1323 KCALS (25-30 KCALS/ KG) 44-53 G PRO (1.0-1.2 G/KG) 1100- 1300 ML FLUIDS (25-30 ML /KG) PT PO INTAKE: 0-25%, PER MEAL/ NUTRITION ACTIVITY RECORD, NOTED THAT PT HAS VERBALIZED SHE DOES NOT WANT TO EAT. VISITED PT THIS MORNING, TRIED TO GATHER FOOD PREFERENCES, BUT PT WAS A LITTLE CONFUSED. SHE DID SAY SHE LIKED VANILLA ICE CREAM. SPOKE WITH RN, NOREEN, STATED PT ATE 25% BREAKFAST THIS MORNING. WILL ADD VANILLA ENSURE ENLIVE BID AND MAGIC CUP ICE CREAM AT DINNER TO INCREASE NUTRITION INTAKE. Current Diet Order/ Nutrition Support GROUND Pertinent Medications LIPITOR, DULCOLAX (PRN), VIT D3, D5W 1000ML @100ML/HR IV Q10H, FOLATE, MOM (PRN), THERAGRAN, FLEET ENEMA (PRN) Pertinent Labs HGB/HCT 10.9/32.4, POTASS 3.0, GLUC 108, CA 11.1, P 1.8 Nutritional Hx/Data Height 1.5 m Height (Calculated Centimeters) 149.9 Current Weight (lbs) 43.998 kg Weight (Calculated Kilograms) 44.0 Weight (Calculated Grams) 07498.5 [place] Body Weight 98 LBS. % [place] Body Weight 99 Body Mass Index (BMI) 19.5 Weight Status Approriate GI Symptoms GI Symptoms None Last BM 10/13 X1 Skin Integrity/Comment: WARM, DRY, ELASTIC, INTACT Current %PO Negligible < 25% Estimated Nutritional Goals BEE in Kcals: Using Current wt Calories/Kcals/Kg 25-30 Kcals Calculated 1102- 1323 Protein: Using Current wt Protein g/k.0-1.2 Protein Calculated 44-53 Fluid: ml 1100- 1300 ML FLUIDS (25-30 ML /KG) Nutritional Problem 1. Problem Problem INADEQUATE ORAL INTAKE R/T PT REFUSAL TO EAT AEB PO INTAKE 0-25% PER MEAL/NUTRITION RECORD. Etiology R/T PT REFUSAL TO EAT Signs/Symptoms: AEB PO INTAKE 0-25% PER MEAL/ NUTRITION RECORD Malnutrition Related to Morbid Obesity Malnutrition related to morbid obesity No Intervention/Recommendation Comments 1.CONTINUE WITH GROUND DIET ORDERED. 2.ADD ENSURE ENLIVE BID AND MAGIC CUP ICE CREAM AT DINNER TO INCREASE NUTRITION INTAKE. Expected Outcomes/Goals Expected Outcomes/Goals 1.PO INTAKE TO MEET AT LEAST 65% OF NUTRITIONAL NEEDS. 2.MONITOR PO INTAKE, WT, NUTRITION RELATED LABS AND SKIN INTEGRITY. 3.F/U HIGH RISK IN 2-3 DAYS , 10/15-10/16.
--- NOTE | 2018-10-14 13:32 | General Progress Note ---
Subjective - Review of Systems Service Date: 10/14/18 Subjective: awake, verbal, confused Objective - Results Result Diagrams: 10/13/18 04:25 10/14/18 04:25 Recent Labs: Laboratory Last Values WBC 9.6 Th/cmm (4.8-10.8) 10/13/18 04:25 RBC 3.63 Mil/cmm (3.80-5.20) L 10/13/18 04:25 Hgb 10.9 gm/dL (12-16) L 10/13/18 04:25 Hct 32.4 % (41.0-60) L 10/13/18 04:25 MCV 89.0 fl (81-100) 10/13/18 04:25 MCH 30.1 pg (27.0-31.0) 10/13/18 04:25 MCHC Differential 33.8 pg (28.0-36.0) 10/13/18 04:25 RDW 13.6 % (11.5-20.0) 10/13/18 04:25 Plt Count 153 Th/cmm (150-400) 10/13/18 04:25 MPV 9.2 fl 10/13/18 04:25 Neutrophils % 77.2 % (40.0-80.0) 10/13/18 04:25 Lymphocytes % 14.3 % (20.0-50.0) L 10/13/18 04:25 Monocytes % 5.4 % (2.0-10.0) 10/13/18 04:25 Eosinophils % 2.5 % (0.0-5.0) 10/13/18 04:25 Basophils % 0.6 % (0.0-2.0) 10/13/18 04:25 Eos Smear Source URINE 10/11/18 17:15 Eos Smear Total Cells NONE SEEN (NONE SEEN) 10/11/18 17:15 Sodium 141 mEq/L (136-145) 10/14/18 04:25 Potassium 2.8 mEq/L (3.5-5.1) L* 10/14/18 04:25 Chloride 108 mEq/L (98-107) H 10/14/18 04:25 Carbon Dioxide 24.1 mEq/L (21.0-31.0) 10/14/18 04:25 Anion Gap 11.7 (7.0-16.0) 10/14/18 04:25 BUN 13 mg/dL (7-25) 10/14/18 04:25 Creatinine 1.0 mg/dL (0.6-1.2) 10/14/18 04:25 Est GFR ( Amer) TNP 10/14/18 04:25 Est GFR (Non-Af Amer) TNP 10/14/18 04:25 BUN/Creatinine Ratio 13.0 10/14/18 04:25 Glucose 85 mg/dL (70-105) 10/14/18 04:25 Whole Bld Lactic Acid 1.58 mmol/L (0.60-1.99) 10/11/18 03:55 Calcium 11.1 mg/dL (8.6-10.3) H 10/14/18 04:25 Phosphorus 2.3 mg/dL (2.5-5.0) L 10/14/18 04:25 Magnesium 2.0 mg/dL (1.9-2.7) 10/14/18 04:25 Total Bilirubin 0.3 mg/dL (0.3-1.0) 10/12/18 05:10 AST 20 U/L (13-39) 10/12/18 05:10 ALT 15 U/L (7-52) 10/12/18 05:10 Alkaline Phosphatase 74 U/L (34-104) 10/12/18 05:10 Creatine Kinase 16 U/L (30-223) L 10/11/18 03:55 Troponin I 0.20 ng/mL (0.01-0.05) H* D 10/11/18 03:55 B-Natriuretic Peptide 20.0 pg/mL (5.0-100.0) 10/11/18 03:55 Total Protein 5.9 gm/dL (6.0-8.3) L 10/12/18 05:10 Albumin 3.0 gm/dL (3.7-5.3) L 10/12/18 05:10 Globulin 2.9 gm/dL 10/12/18 05:10 Albumin/Globulin Ratio 1.0 (1.0-1.8) 10/12/18 05:10 Vitamin D 25-Hydroxy 27.7 ng/mL (30.0-100.0) L 10/12/18 05:10 TSH 0.83 uIU/ml (0.34-5.60) 10/11/18 03:55 Urine Source CLEAN C 10/11/18 04:41 Urine Color YELLOW 10/11/18 04:41 Urine Clarity HAZY (CLEAR) 10/11/18 04:41 Urine pH 6.0 (4.6 - 8.0) 10/11/18 04:41 Ur Specific [place] 1.015 (1.005-1.030) 10/11/18 04:41 Urine Protein TRACE mg/dL (NEGATIVE) 10/11/18 04:41 Urine Glucose (UA) NEGATIVE mg/dL (NEGATIVE) 10/11/18 04:41 Urine Ketones NEGATIVE mg/dL (NEGATIVE) 10/11/18 04:41 Urine Blood TRACE (NEGATIVE) 10/11/18 04:41 Urine Nitrate POSITIVE (NEGATIVE) H 10/11/18 04:41 Urine Bilirubin NEGATIVE (NEGATIVE) 10/11/18 04:41 Urine Urobilinogen 0.2 E.U./dL (0.2 - 1.0) 10/11/18 04:41 Ur Leukocyte Esterase SMALL (NEGATIVE) H 10/11/18 04:41 Urine RBC 2-5 /hpf (0-5) 10/11/18 04:41 Urine WBC >100 /hpf (0-5) H 10/11/18 04:41 Ur Epithelial Cells OCCASIONAL /lpf (FEW) 10/11/18 04:41 Urine Bacteria 3+ /hpf (NONE SEEN) H 10/11/18 04:41 Urine Osmolality 316 mOsmol/kg 10/11/18 17:15 Urine Creatinine 34.0 mg/dl (28.0-217.0) 10/11/18 17:15 Microalb/Creat Ratio 117.2 mg/g creat (0.0-30.0) H 10/11/18 17:15 - Physical Exam Vitals and I&O: Vital Signs Temp 98.2 F 10/14/18 12:00 Pulse 82 10/14/18 12:00 Resp 18 10/14/18 12:00 BP 126/75 10/14/18 12:00 Pulse Ox 100 10/14/18 12:00 Intake & Output 10/13/18 10/14/18 10/14/18 18:59 06:59 18:59 Intake Total 1500 Output Total 1350 Balance 150 Weight (lbs) 43.998 kg Intake: Intake, IV Amount 1050 Dextrose 5% 1,000 ml @ 1000 100 mls/hr IV .Q10H [facility] Rx#:[id number] Levofloxacin 250mg/50mL 50 250 mg In 50 ml @ 50 mls/ hr IV Q24HR@0900 [facility] Rx#: [id number] Oral 450 Output: Urine 1350 Other: # Bowel Movements 2 Stool Characteristics Soft Soft Soft Formed Formed Formed Brown Brown Brown Weight Source Bedscale Active Medications: Current Medications Acetaminophen (Tylenol) 650 mg PO Q4HR PRN PRN Reason: Fever > 101 Stop: 12/10/18 06:35 Aspirin (Aspirin Chewable) 81 mg PO DAILY [facility] Stop: 12/10/18 08:59 Last Admin: 10/14/18 08:21 Dose: 81 mg Atorvastatin Calcium (Lipitor) 10 mg PO [facility]; Protocol Stop: 12/10/18 20:59 Last Admin: 10/13/18 21:25 Dose: 10 mg Bisacodyl (Dulcolax 10 Mg Supp) 10 mg RC DAILY PRN PRN Reason: Constipation Stop: 12/10/18 06:35 Cholecalciferol (Vitamin D3) 1,000 iu PO DAILY [facility] Stop: 12/10/18 08:59 Last Admin: 10/14/18 08:21 Dose: 1,000 iu Cinacalcet (Sensipar) 60 mg PO DAILY [facility] Stop: 12/10/18 08:59 Last Admin: 10/14/18 08:20 Dose: 60 mg Donepezil HCl (Aricept) 5 mg PO [facility] Stop: 12/10/18 20:59 Last Admin: 10/13/18 21:25 Dose: 5 mg Folic Acid (Folate) 1 mg PO DAILY [facility] Stop: 12/10/18 08:59 Last Admin: 10/14/18 08:21 Dose: 1 mg Levofloxacin (Levaquin Pb) 250 mg in 50 mls @ 50 mls/hr IV Q24HR@0900 [facility] Stop: 12/11/18 08:59 Last Admin: 10/14/18 08:20 Dose: 50 mls/hr Magnesium Hydroxide (Milk Of Magnesia) 30 ml PO Q72HR PRN PRN Reason: Constipation Stop: 12/10/18 06:35 Memantine (Namenda) 5 mg PO DAILY [facility] Stop: 12/10/18 08:59 Last Admin: 10/14/18 08:21 Dose: 5 mg Multivitamins/Vitamin C (Theragran) 1 tab PO DAILY [facility] Stop: 12/10/18 08:59 Last Admin: 10/14/18 08:21 Dose: 1 tab Potassium Phos/Sodium Phos (Neutra-Phos) 1.25 gm PO TID [facility] Stop: 12/13/18 13:59 Sodium Phosphate (Fleet Enema) 135 ml RC DAILY PRN PRN Reason: Constipation Stop: 12/10/18 06:35 General: Alert, No acute distress HEENT: Atraumatic, Mucous membr. moist/pink Neck: Supple, +2 carotid pulse wo bruit Cardiovascular: Regular rate, Normal S1, Normal S2 Lungs: Clear to auscultation Abdomen: Bowel sounds, Soft Extremities: no Edema Neurological: Sensation intact Skin: no Rash Psych/Mental Status: Mood NL Assessment/Plan - Assessment Assessment: Hypernatremia Dehydration SATNAM Hypokalemia Ess Htn Dyslipidemia Vit D Def Anemia of CD Primary Hyperparathyroidism - Plan Plan: Lab - Result Diagrams 10/12/18 05:10 10/12/18 05:10 Current Medications Acetaminophen (Tylenol) 650 mg PO Q4HR PRN PRN Reason: Fever > 101 Stop: 12/10/18 06:35 Aspirin (Aspirin Chewable) 81 mg PO DAILY [facility] Stop: 12/10/18 08:59 Last Admin: 10/12/18 08:55 Dose: 81 mg Atorvastatin Calcium (Lipitor) 10 mg PO HS [facility]; Protocol Stop: 12/10/18 20:59 Last Admin: 10/11/18 21:28 Dose: 10 mg Bisacodyl (Dulcolax 10 Mg Supp) 10 mg RC DAILY PRN PRN Reason: Constipation Stop: 12/10/18 06:35 Cholecalciferol (Vitamin D3) 1,000 iu PO DAILY [facility] Stop: 12/10/18 08:59 Last Admin: 10/12/18 08:55 Dose: 1,000 iu Cinacalcet (Sensipar) 60 mg PO DAILY [facility] Stop: 12/10/18 08:59 Last Admin: 10/12/18 08:54 Dose: 60 mg Donepezil HCl (Aricept) 5 mg PO HS [facility] Stop: 12/10/18 20:59 Last Admin: 10/11/18 21:28 Dose: 5 mg Folic Acid (Folate) 1 mg PO DAILY [facility] Stop: 12/10/18 08:59 Last Admin: 10/12/18 08:54 Dose: 1 mg Levofloxacin (Levaquin Pb) 250 mg in 50 mls @ 50 mls/hr IV Q24HR@0900 [facility] Stop: 12/11/18 08:59 Last Admin: 10/12/18 08:54 Dose: 50 mls/hr Dextrose (D5w) 1,000 mls @ 100 mls/hr IV .Q10H [facility] Stop: 12/10/18 14:59 Last Admin: 10/12/18 00:59 Dose: 100 mls/hr Magnesium Hydroxide (Milk Of Magnesia) 30 ml PO Q72HR PRN PRN Reason: Constipation Stop: 12/10/18 06:35 Memantine (Namenda) 5 mg PO DAILY [facility] Stop: 12/10/18 08:59 Last Admin: 10/12/18 08:54 Dose: 5 mg Multivitamins/Vitamin C (Theragran) 1 tab PO DAILY [facility] Stop: 12/10/18 08:59 Last Admin: 10/12/18 08:54 Dose: 1 tab Sodium Phosphate (Fleet Enema) 135 ml RC DAILY PRN PRN Reason: Constipation Stop: 12/10/18 06:3 Lab - Result Diagrams 10/13/18 04:25 10/14/18 04:25 agree w/ KP04 replacement Na up to 141 Kidney fnc stable w/ BUN/CR of 13/1 adquate UOP Hi Ca & lo Phos due to 1 hyperparathyroidism start NeutraPhos Nutritional Asmnt/Malnutr-PDOC - Dietary Evaluation Malnutrition Findings (Please click <Entered> for more info): Nutritional Asmnt/Malnutrition Start: 10/13/18 10: 37 Text: Status: Active Freq: Protocol: Document 10/13/18 10:38 KARTIK (Rec: 10/13/18 10:47 KARTIK [email or web address]) Nutritional Asmnt/Malnutrition Patient General Information Nutritional Screening High Risk Diagnosis HYPERNATREMIA, HYPERCALECEMIA, Pertinent Medical Hx/Surgical Hx HTN, HYPERLIPIDEMIA, VIT D DEFICIENCY, ANEMIA Subjective Information PT HAS BEEN CLASSIFIED 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 HT: 411 WT: 97 (44.09 KG) BMI: 19.59 (NORMAL) GI: WNL, DISTENDED BM: 10/13 X1 I/O: 2080/500/1580 SKIN: WARM, DRY, ELASTIC, INTACT HODAN: 9 DIET ORDER: GROUND ESTIMATED ENERGY NEEDS: ( GERIATRIC) 1102- 1323 KCALS (25-30 KCALS/ KG) 44-53 G PRO (1.0-1.2 G/KG) 1100- 1300 ML FLUIDS (25-30 ML /KG) PT PO INTAKE: 0-25%, PER MEAL/ NUTRITION ACTIVITY RECORD, NOTED THAT PT HAS VERBALIZED SHE DOES NOT WANT TO EAT. VISITED PT THIS MORNING, TRIED TO GATHER FOOD PREFERENCES, BUT PT WAS A LITTLE CONFUSED. SHE DID SAY SHE LIKED VANILLA ICE CREAM. SPOKE WITH RN, NOREEN, STATED PT ATE 25% BREAKFAST THIS MORNING. WILL ADD VANILLA ENSURE ENLIVE BID AND MAGIC CUP ICE CREAM AT DINNER TO INCREASE NUTRITION INTAKE. Current Diet Order/ Nutrition Support GROUND Pertinent Medications LIPITOR, DULCOLAX (PRN), VIT D3, D5W 1000ML @100ML/HR IV Q10H, FOLATE, MOM (PRN), THERAGRAN, FLEET ENEMA (PRN) Pertinent Labs HGB/HCT 10.9/32.4, POTASS 3.0, GLUC 108, CA 11.1, P 1.8 Nutritional Hx/Data Height 1.5 m Height (Calculated Centimeters) 149.9 Current Weight (lbs) 43.998 kg Weight (Calculated Kilograms) 44.0 Weight (Calculated Grams) 37813.5 Kress Body Weight 98 LBS. % Kress Body Weight 99 Body Mass Index (BMI) 19.5 Weight Status Approriate GI Symptoms GI Symptoms None Last BM 10/13 X1 Skin Integrity/Comment: WARM, DRY, ELASTIC, INTACT Current %PO Negligible < 25% Estimated Nutritional Goals BEE in Kcals: Using Current wt Calories/Kcals/Kg 25-30 Kcals Calculated 1102- 1323 Protein: Using Current wt Protein g/k.0-1.2 Protein Calculated 44-53 Fluid: ml 1100- 1300 ML FLUIDS (25-30 ML /KG) Nutritional Problem 1. Problem Problem INADEQUATE ORAL INTAKE R/T PT REFUSAL TO EAT AEB PO INTAKE 0-25% PER MEAL/NUTRITION RECORD. Etiology R/T PT REFUSAL TO EAT Signs/Symptoms: AEB PO INTAKE 0-25% PER MEAL/ NUTRITION RECORD Malnutrition Related to Morbid Obesity Malnutrition related to morbid obesity No Intervention/Recommendation Comments 1.CONTINUE WITH GROUND DIET ORDERED. 2.ADD ENSURE ENLIVE BID AND MAGIC CUP ICE CREAM AT DINNER TO INCREASE NUTRITION INTAKE. Expected Outcomes/Goals Expected Outcomes/Goals 1.PO INTAKE TO MEET AT LEAST 65% OF NUTRITIONAL NEEDS. 2.MONITOR PO INTAKE, WT, NUTRITION RELATED LABS AND SKIN INTEGRITY. 3.F/U HIGH RISK IN 2-3 DAYS , 10/15-10/16.
[2018-10-14] MEDS: Sodium Phos / Potassium Phos 1.25 GM PACK PO SCH (14:41)
[2018-10-14] MEDS: Atorvastatin Calcium 10 MG TAB PO SCH (20:26)
[2018-10-15] MEDS: Sodium Phos / Potassium Phos 1.25 GM PACK PO SCH ×3 (00:54→13:31)
--- NOTE | 2018-10-15 01:57 | Consultation ---
DATE OF CONSULTATION: 10/14/2018 INFECTIOUS DISEASE CONSULTATION REFERRING PHYSICIAN: Dr. Farrar. REASON FOR CONSULTATION: UTI and leukocytosis. HISTORY OF PRESENT ILLNESS: The patient is an 87-year-old female with a past medical history of hypertension, hyperlipidemia, vitamin D deficiency, anemia, brought in from nursing facility for abnormal labs including low potassium, elevated calcium and elevated sodium. On initial evaluation, the patient's temperature was 96.7 degrees Fahrenheit and WBC count was 14,000. Urinalysis shows pyuria and bacteria. The patient was started on Levaquin. Today is day #4. Infectious Disease consult was called for antibiotic management. PAST MEDICAL HISTORY: Includes as mentioned above, hypertension, hyperlipidemia, vitamin D deficiency, anemia. SOCIAL HISTORY: The patient lives in a nursing facility. No history of smoking, alcohol or drug use. ALLERGIES: NKDA. MEDICATIONS: See medication reconciliation sheet. Antibiotic andrade, the patient is on Levaquin. FAMILY HISTORY: Unremarkable. Psychotic issues include dementia. PAST SURGICAL HISTORY: Unremarkable. REVIEW OF SYSTEMS: GENERAL: The patient states she is fine. Denies any fever or chills. HEENT: No diplopia, no photophobia, no sore throat. RESPIRATORY: No cough, no shortness of breath. CARDIOVASCULAR: No chest pain or palpitation. GASTROINTESTINAL: No nausea, no vomiting, no diarrhea, no constipation. GENITOURINARY: No dysuria, no hematuria. NEUROLOGIC: No headache, no dizziness, no focal weakness. PHYSICAL EXAMINATION: GENERAL: The patient is well nourished, lean and thin male, bedridden. Not in acute distress. VITAL SIGNS: Shows temperature is 98.2 degrees Fahrenheit, pulse 82, respiration is 18, blood pressure 126/75. HENT: Head is normocephalic, atraumatic. Oral cavity moist, pink tongue. EYES: No pallor, no icterus. PERRLA, EOMI. NECK: Supple, no JVD. No carotid bruits. Trachea midline. CHEST: Bilateral vesicular sounds. No crackles, no wheezing. Decreased breath sounds. HEART: S1, S2 within normal limits. Regular rhythm. No murmur or gallop. ABDOMEN: Soft, nontender, nondistended. Bowel sounds present. EXTREMITIES: No cyanosis, no clubbing, no edema. BACK: The patient has no spinal tenderness, no CVA tenderness. CENTRAL NERVOUS SYSTEM: No headache, no dizziness, no focal weakness. SKIN: No rashes, no ulcers. LABORATORY DATA: Current lab shows WBC count is 9600, hemoglobin 10.9, hematocrit 32.4, platelets are 152,000, neutrophil 77.2%. Sodium 141, potassium 2.8, chloride 108, bicarbonate is 24.1, BUN is 13, creatinine 1, and glucose is 85. Urinalysis with positive nitrite and small leukoesterase, WBC more than 100, and 3+ bacteria. Blood culture shows no growth. MRSA screen negative. Urine culture with multiple organisms. IMPRESSION: 1. Leukocytosis, improved. 2. Urinary tract infection, improving. 3. Hypokalemia. 4. Azotemia, improved. 5. History of hypertension. 6. Hyperlipidemia. 7. Anemia. 8. Dementia. RECOMMENDATIONS AND PLAN: May continue Levaquin, which can be changed to 250 mg p.o. daily for 3 more days as day #4 today. Thank you, Dr. Farrar for involving me in taking care of this patient. JOB# [id number]
[2018-10-15 05:43] LABS: BUN - UREA NITROGEN 13 mg/dL (7-25); CALCIUM SERUM 11.7 mg/dL (8.6-10.3); CARBON DIOXIDE 24.1 mEq/L (21.0-31.0); CHLORIDE 117 mEq/L (98-107); GLUCOSE 82 mg/dL (70-105); POTASSIUM SERUM 3.1 mEq/L (3.5-5.1); SODIUM SERUM 152 mEq/L (136-145)
[2018-10-15] MEDS ORDERED: Potassium Chloride Elixir 20 mEq /15 mL UDC PO ONE (08:45)
[2018-10-15] MEDS: Aspirin 81mg Chewable Tab PO SCH (08:53)
[2018-10-15] MEDS: Levofloxacin 250 mg/50 mL Premix Bag IV SCH (08:54)
[2018-10-15] MEDS: Multivitamin Tab PO SCH (08:54)
--- NOTE | 2018-10-15 13:09 | General Progress Note ---
Subjective - Review of Systems Service Date: 10/15/18 Subjective: awake, verbal, confused Objective - Results Result Diagrams: 10/13/18 04:25 10/15/18 05:00 Recent Labs: Laboratory Last Values WBC 9.6 Th/cmm (4.8-10.8) 10/13/18 04:25 RBC 3.63 Mil/cmm (3.80-5.20) L 10/13/18 04:25 Hgb 10.9 gm/dL (12-16) L 10/13/18 04:25 Hct 32.4 % (41.0-60) L 10/13/18 04:25 MCV 89.0 fl (81-100) 10/13/18 04:25 MCH 30.1 pg (27.0-31.0) 10/13/18 04:25 MCHC Differential 33.8 pg (28.0-36.0) 10/13/18 04:25 RDW 13.6 % (11.5-20.0) 10/13/18 04:25 Plt Count 153 Th/cmm (150-400) 10/13/18 04:25 MPV 9.2 fl 10/13/18 04:25 Neutrophils % 77.2 % (40.0-80.0) 10/13/18 04:25 Lymphocytes % 14.3 % (20.0-50.0) L 10/13/18 04:25 Monocytes % 5.4 % (2.0-10.0) 10/13/18 04:25 Eosinophils % 2.5 % (0.0-5.0) 10/13/18 04:25 Basophils % 0.6 % (0.0-2.0) 10/13/18 04:25 Eos Smear Source URINE 10/11/18 17:15 Eos Smear Total Cells NONE SEEN (NONE SEEN) 10/11/18 17:15 Sodium 152 mEq/L (136-145) H 10/15/18 05:00 Potassium 3.1 mEq/L (3.5-5.1) L 10/15/18 05:00 Chloride 117 mEq/L (98-107) H 10/15/18 05:00 Carbon Dioxide 24.1 mEq/L (21.0-31.0) 10/15/18 05:00 Anion Gap 14.0 (7.0-16.0) 10/15/18 05:00 BUN 13 mg/dL (7-25) 10/15/18 05:00 Creatinine 1.0 mg/dL (0.6-1.2) 10/15/18 05:00 Est GFR ( Amer) TNP 10/15/18 05:00 Est GFR (Non-Af Amer) TNP 10/15/18 05:00 BUN/Creatinine Ratio 13.0 10/15/18 05:00 Glucose 82 mg/dL (70-105) 10/15/18 05:00 POC Glucose 97 MG/DL (70-105) 10/11/18 06:15 Whole Bld Lactic Acid 1.58 mmol/L (0.60-1.99) 10/11/18 03:55 Calcium 11.7 mg/dL (8.6-10.3) H 10/15/18 05:00 Phosphorus 3.0 mg/dL (2.5-5.0) 10/15/18 05:00 Magnesium 2.0 mg/dL (1.9-2.7) 10/14/18 04:25 Total Bilirubin 0.3 mg/dL (0.3-1.0) 10/12/18 05:10 AST 20 U/L (13-39) 10/12/18 05:10 ALT 15 U/L (7-52) 10/12/18 05:10 Alkaline Phosphatase 74 U/L (34-104) 10/12/18 05:10 Creatine Kinase 16 U/L (30-223) L 10/11/18 03:55 Troponin I 0.20 ng/mL (0.01-0.05) H* D 10/11/18 03:55 B-Natriuretic Peptide 20.0 pg/mL (5.0-100.0) 10/11/18 03:55 Total Protein 5.9 gm/dL (6.0-8.3) L 10/12/18 05:10 Albumin 3.0 gm/dL (3.7-5.3) L 10/12/18 05:10 Globulin 2.9 gm/dL 10/12/18 05:10 Albumin/Globulin Ratio 1.0 (1.0-1.8) 10/12/18 05:10 Vitamin D 25-Hydroxy 27.7 ng/mL (30.0-100.0) L 10/12/18 05:10 TSH 0.83 uIU/ml (0.34-5.60) 10/11/18 03:55 Urine Source CLEAN C 10/11/18 04:41 Urine Color YELLOW 10/11/18 04:41 Urine Clarity HAZY (CLEAR) 10/11/18 04:41 Urine pH 6.0 (4.6 - 8.0) 10/11/18 04:41 Ur Specific [place] 1.015 (1.005-1.030) 10/11/18 04:41 Urine Protein TRACE mg/dL (NEGATIVE) 10/11/18 04:41 Urine Glucose (UA) NEGATIVE mg/dL (NEGATIVE) 10/11/18 04:41 Urine Ketones NEGATIVE mg/dL (NEGATIVE) 10/11/18 04:41 Urine Blood TRACE (NEGATIVE) 10/11/18 04:41 Urine Nitrate POSITIVE (NEGATIVE) H 10/11/18 04:41 Urine Bilirubin NEGATIVE (NEGATIVE) 10/11/18 04:41 Urine Urobilinogen 0.2 E.U./dL (0.2 - 1.0) 10/11/18 04:41 Ur Leukocyte Esterase SMALL (NEGATIVE) H 10/11/18 04:41 Urine RBC 2-5 /hpf (0-5) 10/11/18 04:41 Urine WBC >100 /hpf (0-5) H 10/11/18 04:41 Ur Epithelial Cells OCCASIONAL /lpf (FEW) 10/11/18 04:41 Urine Bacteria 3+ /hpf (NONE SEEN) H 10/11/18 04:41 Urine Osmolality 316 mOsmol/kg 10/11/18 17:15 Urine Creatinine 34.0 mg/dl (28.0-217.0) 10/11/18 17:15 Microalb/Creat Ratio 117.2 mg/g creat (0.0-30.0) H 10/11/18 17:15 - Physical Exam Vitals and I&O: Vital Signs Temp 97.2 F 10/15/18 11:50 Pulse 77 10/15/18 11:50 Resp 18 10/15/18 11:50 BP 116/68 10/15/18 11:50 Pulse Ox 97 10/15/18 11:50 Intake & Output 0710/15/18 10/15/18 18:59 06:59 18:59 Intake Total 350 Balance 350 Weight (lbs) 43.998 kg 43.998 kg Intake: Intake, IV Amount 50 Levofloxacin 250mg/50mL 50 250 mg In 50 ml @ 50 mls/ hr IV Q24HR@0900 [facility] Rx#: [id number] Oral 300 Other: # Voids 2 3 # Bowel Movements 1 2 Stool Characteristics Soft Soft Soft Formed Formed Formed Brown Brown Brown Weight Source Bedscale Bedscale Active Medications: Current Medications Acetaminophen (Tylenol) 650 mg PO Q4HR PRN PRN Reason: Fever > 101 Stop: 12/10/18 06:35 Aspirin (Aspirin Chewable) 81 mg PO DAILY [facility] Stop: 12/10/18 08:59 Last Admin: 10/15/18 08:53 Dose: 81 mg Atorvastatin Calcium (Lipitor) 10 mg PO [facility]; Protocol Stop: 12/10/18 20:59 Last Admin: 10/14/18 20:26 Dose: 10 mg Bisacodyl (Dulcolax 10 Mg Supp) 10 mg RC DAILY PRN PRN Reason: Constipation Stop: 12/10/18 06:35 Cholecalciferol (Vitamin D3) 1,000 iu PO DAILY [facility] Stop: 12/10/18 08:59 Last Admin: 10/15/18 08:53 Dose: 1,000 iu Cinacalcet (Sensipar) 60 mg PO DAILY [facility] Stop: 12/10/18 08:59 Last Admin: 10/15/18 08:53 Dose: 60 mg Donepezil HCl (Aricept) 5 mg PO [facility] Stop: 12/10/18 20:59 Last Admin: 10/14/18 20:27 Dose: 5 mg Folic Acid (Folate) 1 mg PO DAILY [facility] Stop: 12/10/18 08:59 Last Admin: 10/15/18 08:53 Dose: 1 mg Levofloxacin (Levaquin Pb) 250 mg in 50 mls @ 50 mls/hr IV Q24HR@0900 [facility] Stop: 12/11/18 08:59 Last Admin: 10/15/18 08:54 Dose: 50 mls/hr Magnesium Hydroxide (Milk Of Magnesia) 30 ml PO Q72HR PRN PRN Reason: Constipation Stop: 12/10/18 06:35 Memantine (Namenda) 5 mg PO DAILY [facility] Stop: 12/10/18 08:59 Last Admin: 10/15/18 08:53 Dose: 5 mg Multivitamins/Vitamin C (Theragran) 1 tab PO DAILY [facility] Stop: 12/10/18 08:59 Last Admin: 10/15/18 08:54 Dose: 1 tab Potassium Phos/Sodium Phos (Neutra-Phos) 1.25 gm PO TID [facility] Stop: 12/13/18 13:59 Last Admin: 10/15/18 08:57 Dose: 1.25 gm Sodium Phosphate (Fleet Enema) 135 ml RC DAILY PRN PRN Reason: Constipation Stop: 12/10/18 06:35 General: Alert, No acute distress HEENT: Atraumatic, Mucous membr. moist/pink Neck: Supple, +2 carotid pulse wo bruit Cardiovascular: Regular rate, Normal S1, Normal S2 Lungs: Clear to auscultation Abdomen: Bowel sounds, Soft Extremities: no Edema Neurological: Sensation intact Skin: no Rash Psych/Mental Status: Mood NL Assessment/Plan - Assessment Assessment: Hypernatremia Dehydration SATNAM Hypokalemia Ess Htn Dyslipidemia Vit D Def Anemia of CD Primary Hyperparathyroidism - Plan Plan: Lab - Result Diagrams 10/12/18 05:10 10/12/18 05:10 Current Medications Acetaminophen (Tylenol) 650 mg PO Q4HR PRN PRN Reason: Fever > 101 Stop: 12/10/18 06:35 Aspirin (Aspirin Chewable) 81 mg PO DAILY [facility] Stop: 12/10/18 08:59 Last Admin: 10/12/18 08:55 Dose: 81 mg Atorvastatin Calcium (Lipitor) 10 mg PO HS [facility]; Protocol Stop: 12/10/18 20:59 Last Admin: 10/11/18 21:28 Dose: 10 mg Bisacodyl (Dulcolax 10 Mg Supp) 10 mg RC DAILY PRN PRN Reason: Constipation Stop: 12/10/18 06:35 Cholecalciferol (Vitamin D3) 1,000 iu PO DAILY [facility] Stop: 12/10/18 08:59 Last Admin: 10/12/18 08:55 Dose: 1,000 iu Cinacalcet (Sensipar) 60 mg PO DAILY [facility] Stop: 12/10/18 08:59 Last Admin: 10/12/18 08:54 Dose: 60 mg Donepezil HCl (Aricept) 5 mg PO HS [facility] Stop: 12/10/18 20:59 Last Admin: 10/11/18 21:28 Dose: 5 mg Folic Acid (Folate) 1 mg PO DAILY [facility] Stop: 12/10/18 08:59 Last Admin: 10/12/18 08:54 Dose: 1 mg Levofloxacin (Levaquin Pb) 250 mg in 50 mls @ 50 mls/hr IV Q24HR@0900 [facility] Stop: 12/11/18 08:59 Last Admin: 10/12/18 08:54 Dose: 50 mls/hr Dextrose (D5w) 1,000 mls @ 100 mls/hr IV .Q10H [facility] Stop: 12/10/18 14:59 Last Admin: 10/12/18 00:59 Dose: 100 mls/hr Magnesium Hydroxide (Milk Of Magnesia) 30 ml PO Q72HR PRN PRN Reason: Constipation Stop: 12/10/18 06:35 Memantine (Namenda) 5 mg PO DAILY [facility] Stop: 12/10/18 08:59 Last Admin: 10/12/18 08:54 Dose: 5 mg Multivitamins/Vitamin C (Theragran) 1 tab PO DAILY [facility] Stop: 12/10/18 08:59 Last Admin: 10/12/18 08:54 Dose: 1 tab Sodium Phosphate (Fleet Enema) 135 ml RC DAILY PRN PRN Reason: Constipation Stop: 12/10/18 06:3 Lab - Result Diagrams 10/13/18 04:25 10/15/18 05:00 agree w/ KP04 replacement Na up to 152, continue hydration Kidney fnc stable w/ BUN/CR of 13/1 P04 is 3 adquate UOP Hi Ca & lo Phos due to 1 hyperparathyroidism start NeutraPhos Nutritional Asmnt/Malnutr-PDOC - Dietary Evaluation Malnutrition Findings (Please click <Entered> for more info): Nutritional Asmnt/Malnutrition Start: 10/13/18 10: 37 Text: Status: Active Freq: Protocol: Document 10/13/18 10:38 KARTIK (Rec: 10/13/18 10:47 [email or web address]) Nutritional Asmnt/Malnutrition Patient General Information Nutritional Screening High Risk Diagnosis HYPERNATREMIA, HYPERCALECEMIA, Pertinent Medical Hx/Surgical Hx HTN, HYPERLIPIDEMIA, VIT D DEFICIENCY, ANEMIA Subjective Information PT HAS BEEN CLASSIFIED HIGH RISK, NO WEEKEND PROCESS [employer] PT IS A 87 YEAR OLD FEMALE ADMITTED FROM SNF D/T ABNORMAL LABS INCLUDING LOW POTASSIUM, ELEVATED CALCIUM, AND ELEVATED SODIUM. HT: 411 WT: 97 (44.09 KG) BMI: 19.59 (NORMAL) GI: WNL, DISTENDED BM: 10/13 X1 I/O: 2080/500/1580 SKIN: WARM, DRY, ELASTIC, INTACT HODAN: 9 DIET ORDER: GROUND ESTIMATED ENERGY NEEDS: ( GERIATRIC) 1102- 1323 KCALS (25-30 KCALS/ KG) 44-53 G PRO (1.0-1.2 G/KG) 1100- 1300 ML FLUIDS (25-30 ML /KG) PT PO INTAKE: 0-25%, PER MEAL/ NUTRITION ACTIVITY RECORD, NOTED THAT PT HAS VERBALIZED SHE DOES NOT WANT TO EAT. VISITED PT THIS MORNING, TRIED TO GATHER FOOD PREFERENCES, BUT PT WAS A LITTLE CONFUSED. SHE DID SAY SHE LIKED VANILLA ICE CREAM. SPOKE WITH RN, NOREEN, STATED PT ATE 25% BREAKFAST THIS MORNING. WILL ADD VANILLA ENSURE ENLIVE BID AND MAGIC CUP ICE CREAM AT DINNER TO INCREASE NUTRITION INTAKE. Current Diet Order/ Nutrition Support GROUND Pertinent Medications LIPITOR, DULCOLAX (PRN), VIT D3, D5W 1000ML @100ML/HR IV Q10H, FOLATE, MOM (PRN), THERAGRAN, FLEET ENEMA (PRN) Pertinent Labs HGB/HCT 10.9/32.4, POTASS 3.0, GLUC 108, CA 11.1, P 1.8 Nutritional Hx/Data Height 1.5 m Height (Calculated Centimeters) 149.9 Current Weight (lbs) 43.998 kg Weight (Calculated Kilograms) 44.0 Weight (Calculated Grams) 01665.5 [place] Body Weight 98 LBS. % [place] Body Weight 99 Body Mass Index (BMI) 19.5 Weight Status Approriate GI Symptoms GI Symptoms None Last BM 10/13 X1 Skin Integrity/Comment: WARM, DRY, ELASTIC, INTACT Current %PO Negligible < 25% Estimated Nutritional Goals BEE in Kcals: Using Current wt Calories/Kcals/Kg 25-30 Kcals Calculated 1102- 1323 Protein: Using Current wt Protein g/k.0-1.2 Protein Calculated 44-53 Fluid: ml 1100- 1300 ML FLUIDS (25-30 ML /KG) Nutritional Problem 1. Problem Problem INADEQUATE ORAL INTAKE R/T PT REFUSAL TO EAT AEB PO INTAKE 0-25% PER MEAL/NUTRITION RECORD. Etiology R/T PT REFUSAL TO EAT Signs/Symptoms: AEB PO INTAKE 0-25% PER MEAL/ NUTRITION RECORD Malnutrition Related to Morbid Obesity Malnutrition related to morbid obesity No Intervention/Recommendation Comments 1.CONTINUE WITH GROUND DIET ORDERED. 2.ADD ENSURE ENLIVE BID AND MAGIC CUP ICE CREAM AT DINNER TO INCREASE NUTRITION INTAKE. Expected Outcomes/Goals Expected Outcomes/Goals 1.PO INTAKE TO MEET AT LEAST 65% OF NUTRITIONAL NEEDS. 2.MONITOR PO INTAKE, WT, NUTRITION RELATED LABS AND SKIN INTEGRITY. 3.F/U HIGH RISK IN 2-3 DAYS , 10/15-10/16.
[2018-10-15] MEDS ORDERED: Dextrose 5% 1,000 ML IV SCH (13:15)
--- NOTE | 2018-10-15 14:09 | Internal Medicine Prog Note ---
Internal Medicine Subjective - Subjective Service Date: 10/15/18 Patient seen and examined:: with staff Patient is:: awake, verbal, agitated Patient Complaints of:: other (Vitain D deficiency.) Per staff patient has:: no adverse event, no episodes of fall Internal Medicine Objective - Results Result Diagrams: 10/13/18 04:25 10/15/18 05:00 Recent Labs: Laboratory Last Values WBC 9.6 Th/cmm (4.8-10.8) 10/13/18 04:25 RBC 3.63 Mil/cmm (3.80-5.20) L 10/13/18 04:25 Hgb 10.9 gm/dL (12-16) L 10/13/18 04:25 Hct 32.4 % (41.0-60) L 10/13/18 04:25 MCV 89.0 fl (81-100) 10/13/18 04:25 MCH 30.1 pg (27.0-31.0) 10/13/18 04:25 MCHC Differential 33.8 pg (28.0-36.0) 10/13/18 04:25 RDW 13.6 % (11.5-20.0) 10/13/18 04:25 Plt Count 153 Th/cmm (150-400) 10/13/18 04:25 MPV 9.2 fl 10/13/18 04:25 Neutrophils % 77.2 % (40.0-80.0) 10/13/18 04:25 Lymphocytes % 14.3 % (20.0-50.0) L 10/13/18 04:25 Monocytes % 5.4 % (2.0-10.0) 10/13/18 04:25 Eosinophils % 2.5 % (0.0-5.0) 10/13/18 04:25 Basophils % 0.6 % (0.0-2.0) 10/13/18 04:25 Eos Smear Source URINE 10/11/18 17:15 Eos Smear Total Cells NONE SEEN (NONE SEEN) 10/11/18 17:15 Sodium 152 mEq/L (136-145) H 10/15/18 05:00 Potassium 3.1 mEq/L (3.5-5.1) L 10/15/18 05:00 Chloride 117 mEq/L (98-107) H 10/15/18 05:00 Carbon Dioxide 24.1 mEq/L (21.0-31.0) 10/15/18 05:00 Anion Gap 14.0 (7.0-16.0) 10/15/18 05:00 BUN 13 mg/dL (7-25) 10/15/18 05:00 Creatinine 1.0 mg/dL (0.6-1.2) 10/15/18 05:00 Est GFR ( Amer) TNP 10/15/18 05:00 Est GFR (Non-Af Amer) TNP 10/15/18 05:00 BUN/Creatinine Ratio 13.0 10/15/18 05:00 Glucose 82 mg/dL (70-105) 10/15/18 05:00 POC Glucose 97 MG/DL (70-105) 10/11/18 06:15 Whole Bld Lactic Acid 1.58 mmol/L (0.60-1.99) 10/11/18 03:55 Calcium 11.7 mg/dL (8.6-10.3) H 10/15/18 05:00 Phosphorus 3.0 mg/dL (2.5-5.0) 10/15/18 05:00 Magnesium 2.0 mg/dL (1.9-2.7) 10/14/18 04:25 Total Bilirubin 0.3 mg/dL (0.3-1.0) 10/12/18 05:10 AST 20 U/L (13-39) 10/12/18 05:10 ALT 15 U/L (7-52) 10/12/18 05:10 Alkaline Phosphatase 74 U/L (34-104) 10/12/18 05:10 Creatine Kinase 16 U/L (30-223) L 10/11/18 03:55 Troponin I 0.20 ng/mL (0.01-0.05) H* D 10/11/18 03:55 B-Natriuretic Peptide 20.0 pg/mL (5.0-100.0) 10/11/18 03:55 Total Protein 5.9 gm/dL (6.0-8.3) L 10/12/18 05:10 Albumin 3.0 gm/dL (3.7-5.3) L 10/12/18 05:10 Globulin 2.9 gm/dL 10/12/18 05:10 Albumin/Globulin Ratio 1.0 (1.0-1.8) 10/12/18 05:10 Vitamin D 25-Hydroxy 27.7 ng/mL (30.0-100.0) L 10/12/18 05:10 TSH 0.83 uIU/ml (0.34-5.60) 10/11/18 03:55 Urine Source CLEAN C 10/11/18 04:41 Urine Color YELLOW 10/11/18 04:41 Urine Clarity HAZY (CLEAR) 10/11/18 04:41 Urine pH 6.0 (4.6 - 8.0) 10/11/18 04:41 Ur Specific [place] 1.015 (1.005-1.030) 10/11/18 04:41 Urine Protein TRACE mg/dL (NEGATIVE) 10/11/18 04:41 Urine Glucose (UA) NEGATIVE mg/dL (NEGATIVE) 10/11/18 04:41 Urine Ketones NEGATIVE mg/dL (NEGATIVE) 10/11/18 04:41 Urine Blood TRACE (NEGATIVE) 10/11/18 04:41 Urine Nitrate POSITIVE (NEGATIVE) H 10/11/18 04:41 Urine Bilirubin NEGATIVE (NEGATIVE) 10/11/18 04:41 Urine Urobilinogen 0.2 E.U./dL (0.2 - 1.0) 10/11/18 04:41 Ur Leukocyte Esterase SMALL (NEGATIVE) H 10/11/18 04:41 Urine RBC 2-5 /hpf (0-5) 10/11/18 04:41 Urine WBC >100 /hpf (0-5) H 10/11/18 04:41 Ur Epithelial Cells OCCASIONAL /lpf (FEW) 10/11/18 04:41 Urine Bacteria 3+ /hpf (NONE SEEN) H 10/11/18 04:41 Urine Osmolality 316 mOsmol/kg 10/11/18 17:15 Urine Creatinine 34.0 mg/dl (28.0-217.0) 10/11/18 17:15 Microalb/Creat Ratio 117.2 mg/g creat (0.0-30.0) H 10/11/18 17:15 - Physical Exam Vitals and I&O: Vital Signs Temp 97.0 F 10/15/18 13:47 Pulse 18 10/15/18 13:47 Resp 18 10/15/18 13:47 BP 116/68 10/15/18 13:47 Pulse Ox 97 10/15/18 13:47 Intake & Output 10/14/18 10/15/18 10/15/18 18:59 06:59 18:59 Intake Total 350 Balance 350 Weight (lbs) 43.998 kg 43.998 kg Intake: Intake, IV Amount 50 Levofloxacin 250mg/50mL 50 250 mg In 50 ml @ 50 mls/ hr IV Q24HR@0900 [facility] Rx#: [id number] Oral 300 Other: # Voids 2 3 # Bowel Movements 1 2 Stool Characteristics Soft Soft Soft Formed Formed Formed Brown Brown Brown Weight Source Bedscale Bedscale Active Medications: Current Medications Acetaminophen (Tylenol) 650 mg PO Q4HR PRN PRN Reason: Fever > 101 Stop: 12/10/18 06:35 Aspirin (Aspirin Chewable) 81 mg PO DAILY [facility] Stop: 12/10/18 08:59 Last Admin: 10/15/18 08:53 Dose: 81 mg Atorvastatin Calcium (Lipitor) 10 mg PO [facility]; Protocol Stop: 12/10/18 20:59 Last Admin: 10/14/18 20:26 Dose: 10 mg Bisacodyl (Dulcolax 10 Mg Supp) 10 mg RC DAILY PRN PRN Reason: Constipation Stop: 12/10/18 06:35 Cholecalciferol (Vitamin D3) 1,000 iu PO DAILY [facility] Stop: 12/10/18 08:59 Last Admin: 10/15/18 08:53 Dose: 1,000 iu Cinacalcet (Sensipar) 60 mg PO DAILY [facility] Stop: 12/10/18 08:59 Last Admin: 10/15/18 08:53 Dose: 60 mg Donepezil HCl (Aricept) 5 mg PO [facility] Stop: 12/10/18 20:59 Last Admin: 10/14/18 20:27 Dose: 5 mg Folic Acid (Folate) 1 mg PO DAILY [facility] Stop: 12/10/18 08:59 Last Admin: 10/15/18 08:53 Dose: 1 mg Levofloxacin (Levaquin Pb) 250 mg in 50 mls @ 50 mls/hr IV Q24HR@0900 [facility] Stop: 12/11/18 08:59 Last Admin: 10/15/18 08:54 Dose: 50 mls/hr Dextrose (D5w) 1,000 mls @ 75 mls/hr IV .[id number] [facility] Stop: 12/14/18 13:14 Magnesium Hydroxide (Milk Of Magnesia) 30 ml PO Q72HR PRN PRN Reason: Constipation Stop: 12/10/18 06:35 Memantine (Namenda) 5 mg PO DAILY [facility] Stop: 12/10/18 08:59 Last Admin: 10/15/18 08:53 Dose: 5 mg Multivitamins/Vitamin C (Theragran) 1 tab PO DAILY [facility] Stop: 12/10/18 08:59 Last Admin: 10/15/18 08:54 Dose: 1 tab Potassium Phos/Sodium Phos (Neutra-Phos) 1.25 gm PO TID [facility] Stop: 12/13/18 13:59 Last Admin: 10/15/18 13:31 Dose: 1.25 gm Sodium Phosphate (Fleet Enema) 135 ml RC DAILY PRN PRN Reason: Constipation Stop: 12/10/18 06:35 Physical Exam: 87 y/o female patient is very confused and agitated. General: weak, demented HEENT: NC/AT Neck: Supple, No JVD Lungs: CTAB Cardiovascular: RRR, Normal S1 Abdomen: soft, non-tender Extremities: clear Neurological: no change Internal Medicine Assmt/Plan - Assessment Assessment: Dementia. Vitamin D Deficiency. Anemia. Hypertension. Hx of Hyperlipidemia. - Plan Plan: Continuation of care. Monitor Labs. Continue present meds as directed. Monitor vitals, Continue BP meds as directed. Monitor Diet/Nutritional support. Psych management per Psych. Fall precaution, frequent nursing rounds, and as needed restraints to prevent fall. Safety precaution. Supportive care. Continue collaborating with consulting specialists, case management and nursing team. Will Monitor patient and continue present care management. 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 HT: 411 WT: 97 (44.09 KG) BMI: 19.59 (NORMAL) GI: WNL, DISTENDED BM: 10/13 X1 I/O: 2080/500/1580 SKIN: WARM, DRY, ELASTIC, INTACT HODAN: 9 DIET ORDER: GROUND ESTIMATED ENERGY NEEDS: ( GERIATRIC) 1102- 1323 KCALS (25-30 KCALS/ KG) 44-53 G PRO (1.0-1.2 G/KG) 1100- 1300 ML FLUIDS (25-30 ML /KG) PT PO INTAKE: 0-25%, PER MEAL/ NUTRITION ACTIVITY RECORD, NOTED THAT PT HAS VERBALIZED SHE DOES NOT WANT TO EAT. VISITED PT THIS MORNING, TRIED TO GATHER FOOD PREFERENCES, BUT PT WAS A LITTLE CONFUSED. SHE DID SAY SHE LIKED VANILLA ICE CREAM. SPOKE WITH RN, NOREEN, STATED PT ATE 25% BREAKFAST THIS MORNING. WILL ADD VANILLA ENSURE ENLIVE BID AND MAGIC CUP ICE CREAM AT DINNER TO INCREASE NUTRITION INTAKE. Current Diet Order/ Nutrition Support GROUND Pertinent Medications LIPITOR, DULCOLAX (PRN), VIT D3, D5W 1000ML @100ML/HR IV Q10H, FOLATE, MOM (PRN), THERAGRAN, FLEET ENEMA (PRN) Pertinent Labs HGB/HCT 10.9/32.4, POTASS 3.0, GLUC 108, CA 11.1, P 1.8 Nutritional Hx/Data Height 1.5 m Height (Calculated Centimeters) 149.9 Current Weight (lbs) 43.998 kg Weight (Calculated Kilograms) 44.0 Weight (Calculated Grams) 76646.5 [place] Body Weight 98 LBS. % [place] Body Weight 99 Body Mass Index (BMI) 19.5 Weight Status Approriate GI Symptoms GI Symptoms None Last BM 10/13 X1 Skin Integrity/Comment: WARM, DRY, ELASTIC, INTACT Current %PO Negligible < 25% Estimated Nutritional Goals BEE in Kcals: Using Current wt Calories/Kcals/Kg 25-30 Kcals Calculated 1102- 1323 Protein: Using Current wt Protein g/k.0-1.2 Protein Calculated 44-53 Fluid: ml 1100- 1300 ML FLUIDS (25-30 ML /KG) Nutritional Problem 1. Problem Problem INADEQUATE ORAL INTAKE R/T PT REFUSAL TO EAT AEB PO INTAKE 0-25% PER MEAL/NUTRITION RECORD. Etiology R/T PT REFUSAL TO EAT Signs/Symptoms: AEB PO INTAKE 0-25% PER MEAL/ NUTRITION RECORD Malnutrition Related to Morbid Obesity Malnutrition related to morbid obesity No Intervention/Recommendation Comments 1.CONTINUE WITH GROUND DIET ORDERED. 2.ADD ENSURE ENLIVE BID AND MAGIC CUP ICE CREAM AT DINNER TO INCREASE NUTRITION INTAKE. Expected Outcomes/Goals Expected Outcomes/Goals 1.PO INTAKE TO MEET AT LEAST 65% OF NUTRITIONAL NEEDS. 2.MONITOR PO INTAKE, WT, NUTRITION RELATED LABS AND SKIN INTEGRITY. 3.F/U HIGH RISK IN 2-3 DAYS , 10/15-10/16.
[2018-10-15 14:15] LABS: CA (PTHI) 11.2 mg/dL (8.7-10.3)
--- NOTE | 2018-10-27 11:05 | Discharge Summary ---
DATE OF DISCHARGE: 10/15/2018 HOSPITAL COURSE: This patient was admitted on 10/11/2018 at [facility] and on 10/15/2018, the patient was discharged back to [facility]. An 87-year-old female patient ____ was found to have severe hyponatremia, hypercalcemia, severe dehydration, dementia, anemia, hyperlipidemia and was admitted. The patient was given fluids. Multiple consultants including Nephrology, I and D and the patient improved. The patient was in stable condition on 10/15/2018. FINAL DIAGNOSES: 1. Dehydration. 2. Hyponatremia, resolved. 3. Urinary tract infection, resolved. 4. History of dementia. 5. Hypertension. 6. ____ necrosis. DISPOSITION: The patient was discharged back to [facility] in stable condition. MEDICATIONS: See med reconciliation sheet. JOB# [id number]
== END 2018-10-15 18:28 | DRG 871 ==
LOC: ER 03:06 → TELE 05:19
PROVIDERS: ADMIT Internal Medicine; ATTEND Internal Medicine
DX: A41.9 Sepsis, unspecified organism (principal); E41 Nutritional marasmus; E87.0 Hyperosmolality and hypernatremia; N39.0 Urinary tract infection, site not specified; Z68.1 Body mass index [BMI] 19.9 or less, adult; N17.9 Acute kidney failure, unspecified; E46 Unspecified protein-calorie malnutrition; E78.5 Hyperlipidemia, unspecified; M81.0 Age-related osteoporosis without current pathological fracture; G30.9 Alzheimer's disease, unspecified; E86.0 Dehydration; I10 Essential (primary) hypertension; F02.80 Dementia in other diseases classified elsewhere, unspecified severity, without behavioral disturbance, psychotic disturbance, mood disturbance, and anxiety; E87.6 Hypokalemia; E55.9 Vitamin D deficiency, unspecified; E21.0 Primary hyperparathyroidism; D63.8 Anemia in other chronic diseases classified elsewhere
CPT/HCPCS: 36415-UA; 76770-TC; 80048-TC; 80053-TC; 81001-TC; 81015-TC; 82043-90; 82306-90; 82310-90; 82550-TC; 82570-TC; 82948-90; 83519-90; 83605; 83735-TC; 83880-TC; 83935-90; 83970-90; 84100-TC; 84443-TC; 84484-TC; 85025-TC; 87086-90; 90799; 93005; 94760; J0696; J1956; J7040; J7070; J7121; Z7610